=== PATIENT | female | born 1945 | race Caucasian/White ===

== ENCOUNTER → 2019-05-07 | Outpatient (CLI) | payer MEDICARE ==
--- NOTE | 2019-05-07 14:18 | REP ---
CHEST X-RAY: TWO VIEWS. HISTORY: Cough and shortness of breath. Rule out pneumonia. No comparison study. FINDINGS: There is a large hiatal hernia behind the heart. Heart is not felt to be enlarged. There are clips associated with the hiatal hernia. There appear to be some increased markings lateral to the hiatal hernia in the left base suggestive of an infiltrate. This is subtle. The remaining lung calzada are clear. There is no evidence of pleural effusion. The aorta is tortuous. Pulmonary vasculature is not felt to be increased. IMPRESSION: Subtle infiltrate suspected left base. There is a large hiatal hernia behind the heart with some associated surgical clips. Electronically Signed by Soy Karimi MD 05/07/2019 02:51 P
== END ==
LOC: M RAD 12:14
PROVIDERS: ATTEND Physician Assistant Medical
DX: R05 Cough (principal)

== ENCOUNTER 2019-05-16 10:53 | Observation (INO) | payer MEDICARE ==
[~2019-05-16] VITALS: Ht 162.6 cm; Wt 96.3 kg
[2019-05-16 11:40] LABS: BASO % 0.3 % (0.0-1.0); EOS # 0.1 10^3/uL (0.0-0.5); EOS % 0.8 % (0.0-3.0); HEMATOCRIT 42.7 % (36.0-47.0); HEMOGLOBIN 13.3 g/dl (12.0-15.5); LYMPH # 1.8 10^3/uL (1.5-5.0); LYMPH % 15.4 % (24.0-44.0); MEAN CORPUSCULAR HEMOGLOBIN 30.8 pg (27.0-33.0); MEAN CORPUSCULAR HGB CONC 31.1 g/dl (32.0-36.5); MEAN CORPUSCULAR VOLUME 98.8 fl (80.0-96.0); MONO % 16.8 % (0.0-5.0); NEUTROPHILS # 7.7 10^3/uL (1.5-8.5); NEUTROPHILS % 65.6 % (36.0-66.0); PLATELET COUNT, AUTOMATED 407 10^3/uL (150-450); RED BLOOD COUNT 4.32 10^6/uL (4.00-5.40); WHITE BLOOD COUNT 11.8 10^3/uL (4.0-10.0)
--- NOTE | 2019-05-16 11:52 | REP ---
Portable chest, 11:27 a.m., single AP view with the the patient sitting: Comparison is 05/07/2019. There is a large hiatal hernia, as previously. There is focal increased density inferiorly in the left lung, similar to the prior study, infiltrate versus compression atelectasis from the hiatal hernia. Right lung is clear. Cardiac size is normal. The nate, mediastinum, skeletal structures are unremarkable. Impression: No significant interval change. Large hiatal hernia. Increased density inferiorly in the left lung: Infiltrate versus compression atelectasis from the hiatal hernia. Electronically Signed by Alcides Bourgeois MD 05/16/2019 11:43 A
[2019-05-16 11:55] LABS: INR 1.18; PROTHROMBIN TIME 14.7 SECONDS (11.8-14.0)
[2019-05-16 12:38] LABS: ALBUMIN 3.2 GM/DL (3.2-5.2); ALT/SGPT < 6 U/L (12-78); BILIRUBIN,DIRECT 0.3 MG/DL (0.0-0.2); BILIRUBIN,TOTAL 0.9 MG/DL (0.2-1.0); BLOOD UREA NITROGEN 17 MG/DL (7-18); CALCIUM LEVEL 8.5 MG/DL (8.8-10.2); CARBON DIOXIDE LEVEL 27 MEQ/L (21-32); CHLORIDE LEVEL 103 MEQ/L (98-107); CK-MB VALUE MASS < 1.0 NG/ML (<3.6); CPK CREATINE PHOSPHOKINASE 55 U/L (26-192); CREATININE FOR GFR 1.07 MG/DL (0.55-1.30); GLOMERULAR FILTRATION RATE 53.4 (>39); GLUCOSE, FASTING 78 MG/DL (70-100); LIPASE 173 U/L (73-393); MB/CK RELATIVE INDEX 1.82 (< OR =4); NT-PRO BNP 353 PG/ML (<125); POTASSIUM SERUM 4.6 MEQ/L (3.5-5.1); SODIUM LEVEL 137 MEQ/L (136-145); TOTAL PROTEIN 7.2 GM/DL (6.4-8.2); TROPONIN I < 0.02 NG/ML (< 0.10)
[2019-05-16] MEDS ORDERED: IBUP200T45 PO (12:41)
[2019-05-16] MEDS ORDERED: ISOVUE-370 76% 100ML VIAL (Q9967) As Ordered ONE (13:36)
--- NOTE | 2019-05-16 14:15 | REP ---
CT of the chest with IV contrast for shortness of breath: Comparisons are the plain film studies dated 05/16/2019 and 05/07/2019. There is a large fixed hiatal hernia. There are subpleural para moderate K changes diffusely. These are more predominant in the lung bases. No focal infiltrates are identified. There are no masses or nodules. No pleural effusions. No bulla are identified. No pulmonary emboli are identified. The thoracic aorta is unremarkable. Cardiac size is upper normal. There is no pericardial effusion. There are surgical clips along the medial wall of the hiatal hernia. The visualized upper abdominal contents are unremarkable except for cortical scarring in the upper pole of the left kidney and a nonobstructive calculus in the upper pole of the left kidney. Impression: Bilateral subpleural scarring, particularly in the lung bases. No definite infiltrates. No pleural effusions. No adenopathy or mass. No pulmonary emboli. Large hiatal hernia. Surgical clips along the medial wall of the hiatal hernia. Electronically Signed by Alcides Bourgeois MD 05/16/2019 02:06 P
[2019-05-16] MEDS ORDERED: PANTOPRAZOLE 40MG INJ (PROTONIX) (C9113) IV ONE (15:30)
[2019-05-16] MEDS ORDERED: cefTRIAXone SOD 1 GM in D5W MINI-BAG PLUS 50 ML IV ONE (15:30)
[2019-05-16] MEDS ORDERED: ACETAMINOPHEN TAB 650MG DOSE (2X325MG) PO PRN (15:30)
[2019-05-16 16:00] VITALS: BP 144/94
--- NOTE | 2019-05-16 16:10 | HPEPDOC ---
General Date of Admission May 16, 2019 at 14:12 Date of Service: May 16, 2019 Chief Complaint The patient is a 74-year-old female admitted with a reason for visit of Chest Pain. Source: Patient, Family, EMS notes reviewed Exam Limitations: No limitations Timing/Duration: This morning Severity: Moderate Associated Symptoms: Chest Pain, Shortness of breath History of Present Illness Ms. Izquierdo is a 74 year old female who presented to the ED with CP and dyspnea. Pt reported that this morning she had gotten ready to go out at 10am; while sitting and waiting for her ride, she noted 10/10, gripping pain in the middle of her chest that radiated to the R side. The pain lasted for 'several minutes', she noticed some shortness of breath and felt very nervous. Pt noted some nausea with the pain, but no vomiting. It waned spontaneously, returned less intense several minutes later. Pt denied previous episodes. The entire episode lasted 30 mins to 1 hour. Pt denied any pain currently. Pt has not seen a doctor regularly in years. She recently completed Tx for pneumonia outpt. She was sent to the hospital for CXR and Rx Prednisone and Azithromycin. Dyspnea has improved since last week but she and her daughter stated that this morning she had gotten very short of breath. Pt also reported diarrhea that has been ongoing for 3-4 months. The stool is brown and watery in consistency, sometimes 4-5 times per day, others not at all. Home Medications Scheduled PRN Ibuprofen (Ibu-200) 200 Mg Tablet, 400 MG PO DAILY PRN for BACK PAIN, (Reported) Allergies Coded Allergies: aspirin (Verified Adverse Reaction, Unknown, ulcers, 05/16/19) Past Medical History Medical History Hiatal hernia Remote history of Fx L leg (set and cast) Surgical History Hiatal hernia repair Family History Significant Family History: Diabetes (Mother ), Lung disease (Father - Emphysema ) Social History * Smoker: Denies Alcohol: Denies Drugs: denies Recent Travel/Sick Contacts: Denies: Recent travel A-FIB/CHADSVASC A-FIB History Current/History of A-Fib/PAF?: No Current PO Anticoag Therapy: No Review of Systems Constitutional: Denies: Chills, Fever, Night Sweats Eyes: Denies: Pain ENT: Denies: Head Aches Skin: Denies: Rash, Lesions, Breakdown Pulmonary: Reports: Dyspnea; Denies: Cough Cardiovascular: Reports: Chest Pain; Denies: Palpitations, Orthopnea, Paroxysmal Noc. Dyspnea, Lt Headedness Gastrointestinal: Reports: Nausea, Diarrhea; Denies: Vomiting, Abdominal Pain Genitourinary: Reports: Incontinence; Denies: Dysuria, Retention Hematologic: Denies: Bruising Musculoskeletal: Denies: Neck Pain, Back Pain, Joint Pain, Muscle Pain, Spasms Neurological: Denies: Confusion Psych: Reports: Mood Normal, Memory Issues Physical Examination General Exam: Positive: Alert, Cooperative, No Acute Distress Eye Exam: Positive: PERRLA, Conjunctiva & lids normal, EOMI; Negative: Sclera icteric ENT Exam: Positive: Atraumatic, Mucous membr. moist/pink, Pharynx Normal Neck Exam: Positive: Supple; Negative: JVD, thyromegaly Chest Exam: Positive: Clear to auscultation, Normal air movement Heart Exam: Positive: Rate Normal, Regular Rhythm, Normal S1, Normal S2, Murmurs (2/6 SM S1S2 intact ); Negative: Rubs Telemetry: Positive: PVCs (vs PACs) Abdomen Exam: Positive: BS Hypoactive, Soft; Negative: Tenderness Extremity Exam: Positive: Edema (mild L>R), Normal pulses; Negative: Clubbing, Cyanosis Skin Exam: Positive: Nl turgor and temperature; Negative: Breakdown, Lesion Neuro Exam: Positive: Normal Speech, Cranial Nerves 3-12 NL Psych Exam: Positive: Mental status NL, Mood NL Vital Signs Vital Signs Date Time Temp Pulse Resp B/P (MAP) Pulse Ox O2 Delivery O2 Flow Rate FiO2 05/16/19 14:15 97.6 76 18 121/60 (80) 95 Room Air 05/16/19 13:07 2.0 Laboratory Data Labs 24H Laboratory Tests 2 05/16/19 11:15: Immature Granulocyte % (Auto) 1.1, Neutrophils (%) (Auto) 65.6, Lymphocytes (%) (Auto) 15.4L, Monocytes (%) (Auto) 16.8H, Eosinophils (%) (Auto) 0.8, Basophils (%) (Auto) 0.3, Neutrophils # (Auto) 7.7, Lymphocytes # (Auto) 1.8, Monocytes # (Auto) 2.0H, Eosinophils # (Auto) 0.1, Basophils # (Auto) 0.0, Nucleated Red Blood Cells % (auto) 0.0, Prothrombin Time 14.7H, Prothromb Time International Ratio 1.18, Anion Gap 7L, Glomerular Filtration Rate 53.4, Calcium Level 8.5L, Total Bilirubin 0.9, Direct Bilirubin 0.3H, Aspartate Amino Transf (AST/SGOT) 11, Alanine Aminotransferase (ALT/SGPT) < 6L, Alkaline Phosphatase 73, Total Creatine Kinase 55, Creatine Kinase MB < 1.0, Creatine Kinase MB Relative Index 1.82, Troponin I < 0.02, MW-Icy-T-Type Natriuretic Peptide 353H, Total Protein 7.2, Albumin 3.2, Albumin/Globulin Ratio 0.80L, Lipase 173, Thyroid Stimulating Hormone (TSH) 2.120 CBC/BMP Laboratory Tests 05/16/19 11:15 Assessment/Plan Ms. Izquierdo is a 74 year old female who presented to the ED with CP and dyspnea. Pt reported that this morning she had gotten ready to go out at 10am; while sit ting and waiting for her ride, she noted 10/10, gripping pain in the middle of her chest that radiated to the R side. The pain lasted for 'several minutes', she noticed some shortness of breath and felt very nervous. Pt noted some nausea with the pain, but no vomiting. It waned spontaneously, returned less intense several minutes later. Pt denied previous episodes. The entire episode lasted 30 mins to 1 hour. Pt denied any pain currently. Pt has not seen a doctor regularly in years. She recently completed Tx for pneumonia outpt. She was sent to the hospital for CXR and Rx Prednisone and Azithromycin. Dyspnea has improved since last week but she and her daughter stated that this morning she had gotten very short of breath. Pt also reported diarrhea that has been ongoing for 3-4 months. The stool is brown and watery in consistency, sometimes 4-5 times per day, others not at all. Ms Izquierdo's PMHx has been largely benign; until recently, she hasn't seen a doctor in 25 years and only takes Ibuprofen very rarely. She last took one several weeks ago and only if she has an ache or pain. CP - likely GI etiology; rule out cardiac origin - Troponin normal; repeat stat for 3hr serial - admit to the floor on telemetry - review EKG; not available in ED at time of exam. CHF with Pleural Effusion - suspected in ED - no evidence of CHF on chest CT - mild pedal edema l>r - monitor and rule out Hypoxemia - O2 via NC - titrate and maintain sat > 93% Recent Hx of Pneumonia - mild leukocytosis - + dyspnea and hypoxemia noted in the ED - pt treated with macrolide to completion - CT scan - some b/l subpleural scarring - give prophy Ceftriaxone and monitor - incentive spirometry Gastritis/Hiatal hernia - Protonix IV today for some relief - start PO tomorrow if can tolerate - consider GI consult inpt vs. outpt follow-up based on pt response to therapy Plan / VTE VTE Prophylaxis Ordered?: Yes (Heparin ) LATISHA PERRY PA-C May 16, 2019 16:10
[2019-05-16] MEDS ORDERED: SLF 3 ML SYR IV PRN (16:30)
--- NOTE | 2019-05-16 19:56 | ECGEPIP ---
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
[2019-05-16 20:00] VITALS: BP 126/72
[2019-05-16] MEDS: HEPARIN SOD (PORCINE) 5000 UNITS/ML VIAL SC SCH (21:26)
[2019-05-16] MEDS: SLF 3 ML SYR IV SCH (22:09)
[2019-05-17] VITALS: BP 139/81
[2019-05-17] MEDS: SLF 3 ML SYR IV SCH (04:56)
[2019-05-17] MEDS ORDERED: PANTOPRAZOLE 40MG TAB (PROTONIX) PO SCH (06:00)
[2019-05-17 08:06] VITALS: BP 142/77
[2019-05-17 08:09] LABS: HEMATOCRIT 41.5 % (36.0-47.0); HEMOGLOBIN 12.9 g/dl (12.0-15.5); MEAN CORPUSCULAR HEMOGLOBIN 30.9 pg (27.0-33.0); MEAN CORPUSCULAR HGB CONC 31.1 g/dl (32.0-36.5); MEAN CORPUSCULAR VOLUME 99.5 fl (80.0-96.0); PLATELET COUNT, AUTOMATED 393 10^3/uL (150-450); RED BLOOD COUNT 4.17 10^6/uL (4.00-5.40); WHITE BLOOD COUNT 9.5 10^3/uL (4.0-10.0)
[2019-05-17 08:38] LABS: CALCIUM LEVEL 8.7 MG/DL (8.8-10.2); CREATININE FOR GFR 1.09 MG/DL (0.55-1.30); GLOMERULAR FILTRATION RATE 52.2 (>39); POTASSIUM SERUM 4.4 MEQ/L (3.5-5.1)
[2019-05-17] MEDS: HEPARIN SOD (PORCINE) 5000 UNITS/ML VIAL SC SCH (09:05)
[2019-05-17] MEDS ORDERED: PANT40TA3 PO (11:16)
[2019-05-17] MEDS ORDERED: FUROSEMIDE 200 MG/20 ML ORAL SOL 60ML BTL PO SCH (16:00)
[2019-05-18] MEDS ORDERED: FLUBLOK(EGG FREE)(QUAD)INFLUENZA VACC 0.5ML SYRINGE (90682)18YRS&OLDER IM ONE (09:00)
[2019-05-18] MEDS ORDERED: PREVNAR 13 VACCINE SYRINGE (CPT CODE:90670) IM ONE (09:00)
== END 2019-05-17 13:50 | disposition home or self-care (01) ==
LOC: M ED 10:53 → INTOOBSV 14:12 → M ED INP 14:12 → ENRESERV 15:00 → M PCU 15:28
PROVIDERS: ADMIT Internal Medicine Nephrology; ATTEND Internal Medicine Nephrology
DX: R07.9 Chest pain, unspecified (principal); R09.02 Hypoxemia; K44.9 Diaphragmatic hernia without obstruction or gangrene; R19.7 Diarrhea, unspecified; R60.0 Localized edema; Z88.6 Allergy status to analgesic agent
CPT/HCPCS: 36415; 71045; 71260; 80048; 80076; 82550; 82553; 83690; 83880; 84443; 84484; 85025; 85027; 85610; 93005; 93041; 94760; 96372; 96374; 96375; 99285; C9113; G0378; J0696; Q9967

== ENCOUNTER → 2019-06-05 | Outpatient (CLI) | payer MEDICARE ==
[~2019-06-05] MED LIST: IBUP200T45 PO; PANT40TA3 PO
[2019-06-05 08:49] LABS: HEMOGLOBIN A1c 6.3 %
[2019-06-05 08:58] LABS: CHOLESTEROL RISK RATIO 3.042 (<5)
== END ==
LOC: M LAB 08:07
PROVIDERS: ATTEND Nurse Practitioner Family
DX: Z00.00 Encounter for general adult medical examination without abnormal findings (principal); E78.00 Pure hypercholesterolemia, unspecified; R73.01 Impaired fasting glucose

== ENCOUNTER → 2019-12-12 | Outpatient (CLI) | payer MEDICARE ==
[~2019-12-12] MED LIST changes: +PANT40TA29 PO; -PANT40TA3 PO
--- NOTE | 2019-12-21 08:04 | REP ---
RIGHT FOOT SERIES: 4-VIEWS HISTORY: Pain in the right foot. FINDINGS: Four views of the right foot show overall normal mineralization. No fracture or subluxation is seen. There is Achilles and plantar calcaneal spurring. Mild midfoot osteoarthritic spurring is seen. No erosive changes are noted. IMPRESSION: No acute abnormality. Osteoarthritic and heal spurring noted. MTDD
== END ==
LOC: M RAD 16:47
PROVIDERS: ATTEND Nurse Practitioner Family
DX: M79.671 Pain in right foot (principal); M77.31 Calcaneal spur, right foot; M19.071 Primary osteoarthritis, right ankle and foot

== ENCOUNTER 2020-05-02 12:35 | Inpatient (IN) | payer MEDICARE ==
[~2020-05-02] VITALS: Ht 157.5 cm; Wt 97.7 kg
[2020-05-02] MEDS ORDERED: TRIA37.53 PO (13:00)
[2020-05-02] MEDS ORDERED: METO1TAB32 PO (13:00)
--- NOTE | 2020-05-02 13:37 | REP ---
INDICATION: Coronavirus workup COMPARISON: 05/16/2019 TECHNIQUE: Portable AP view of the chest FINDINGS: Cardiomegaly and large hiatal hernia along with diffuse chronic interstitial changes are similar to prior examination. Subtle superimposed airspace disease cannot be excluded. No pneumothorax. No definite effusion. Skeletal structures intact. IMPRESSION: Chronic stable changes. Cannot exclude subtle superimposed airspace disease. <Electronically signed by Esteban Varela > 05/02/20 [id number]
[2020-05-02] MEDS ORDERED: PANT-23 PO (13:48)
[2020-05-02 14:57] LABS: BASO % 0.6 % (0.0-1.0); EOS % 0.4 % (0.0-3.0); HEMATOCRIT 41.3 % (36.0-47.0); HEMOGLOBIN 13.1 g/dl (12.0-15.5); LYMPH # 1.2 10^3/uL (1.5-5.0); LYMPH % 24.4 % (24.0-44.0); MEAN CORPUSCULAR HEMOGLOBIN 30.9 pg (27.0-33.0); MEAN CORPUSCULAR HGB CONC 31.7 g/dl (32.0-36.5); MEAN CORPUSCULAR VOLUME 97.4 fl (80.0-96.0); MONO # 0.7 10^3/uL (0.0-0.8); MONO % 14.5 % (0.0-5.0); NEUTROPHILS # 2.9 10^3/uL (1.5-8.5); NEUTROPHILS % 58.9 % (36.0-66.0); PLATELET COUNT, AUTOMATED 229 10^3/uL (150-450); RED BLOOD COUNT 4.24 10^6/uL (4.00-5.40)
[2020-05-02 15:00] LABS: VENOUS BASE EXCESS -1.4 (-2.0-2.0); VENOUS HCO3 24.7 MEQ/L (23.0-27.0); VENOUS O2 SATURATION 96.7 % (60.0-80.0); VENOUS PARTIAL PRESSURE CO2 46.5 mmHg (38.0-50.0); VENOUS PARTIAL PRESSURE O2 86.5 mmHg (30.0-50.0); VENOUS PH 7.343 UNITS (7.330-7.430); VENOUS STANDARD HCO3 23.3 MEQ/L; VENOUS TOTAL CO2 26.1 MEQ/L (24.0-28.0)
[2020-05-02 15:19] LABS: INR 0.98; PROTHROMBIN TIME 13.2 SECONDS (12.5-14.3)
[2020-05-02 15:20] LABS: PARTIAL THROMBOPLASTIN TIME 33.4 SECONDS (24.2-38.5)
[2020-05-02 15:23] LABS: D-DIMER QUANT 1551.7 ng/ml (<500)
[2020-05-02 15:26] LABS: ALT/SGPT 13 U/L (12-78); BILIRUBIN,TOTAL 0.5 MG/DL (0.2-1.0); BLOOD UREA NITROGEN 18 MG/DL (7-18); C REACTIVE PROTEIN QUANTITATIV 2.51 MG/DL (0.00-0.30); CALCIUM LEVEL 7.7 MG/DL (8.8-10.2); CARBON DIOXIDE LEVEL 27 MEQ/L (21-32); CHLORIDE LEVEL 103 MEQ/L (98-107); CK-MB VALUE MASS < 1.0 NG/ML (<3.6); CPK CREATINE PHOSPHOKINASE 86 U/L (26-192); CREATININE FOR GFR 1.56 MG/DL (0.55-1.30); FERRITIN 345 NG/ML (8-252); GLOMERULAR FILTRATION RATE 34.5 (>39); GLUCOSE, FASTING 88 MG/DL (70-100); LDH LACTATE DEHYDROGENASE 264 U/L (84-246); MAGNESIUM LEVEL 1.7 MG/DL (1.8-2.4); MB/CK RELATIVE INDEX 1.16 (< OR =4); POTASSIUM SERUM 3.8 MEQ/L (3.5-5.1); SODIUM LEVEL 136 MEQ/L (136-145); TOTAL PROTEIN 6.7 GM/DL (6.4-8.2); TROPONIN I < 0.02 NG/ML (< 0.10)
[2020-05-02] MEDS ORDERED: ISOVUE-370 76% 100ML VIAL As Ordered ONE (15:50)
--- NOTE | 2020-05-02 16:32 | REP ---
INDICATION: ?PE COMPARISON: None. TECHNIQUE: Axial contrast enhanced images from the thoracic inlet to the upper abdomen using pulmonary embolus technique with multiplanar re-formations. 75 ml Isovue 370 intravenous contrast material administered without complication. This CT examination was performed using the following dose reduction techniques: Automated exposure control, adjustment of mA and/or kv according to the patient's size, and use of iterative reconstruction technique. FINDINGS: Marked respiratory motion significantly limits evaluation. However, no obvious main to 2nd order pulmonary artery emboli are identified. Cardiomegaly with pulmonary vascular congestion and diffuse chronic interstitial changes with areas of subpleural fibrosis are again noted. Subtle moderate areas of early bilateral airspace disease are suggested but poorly evaluated due to motion. No effusion. No pneumothorax. Large hiatal hernia identified. Nonspecific lymph nodes in the mediastinum possibly reactive without significant adenopathy. IMPRESSION: 1. Significantly limited examination due to marked respiratory motion artifact. No obvious pulmonary embolus is identified. 2. Chronic bilateral parenchymal disease with suspected moderate areas of early peripheral opacities suggested. May be related to multifocal pneumonia or early COVID-19 pulmonary disease. <Electronically signed by Esteban Varela > 05/02/20 [id number]
[2020-05-02] MEDS ORDERED: LevoFLOXacin IV 750 MG in IV 1 EA IV ONE (16:45)
[2020-05-02] MEDS ORDERED: ACETAMINOPHEN TAB 650MG DOSE (2X325MG) PO PRN (18:00)
[2020-05-02] MEDS: dexameTHASONE 20MG/5ML VIAL (J1100 PER 1MG) IV SCH (18:00)
[2020-05-02] MEDS: NS 1,000 ML IV SCH (18:15)
--- NOTE | 2020-05-02 18:17 | HPEPDOC ---
General Date of Admission 05/02/20 Date of Service: May 02, 2020 Chief Complaint The patient is a 74-year-old female admitted with a reason for visit of Diff Breathing. Source: Patient Exam Limitations: No limitations Timing/Duration: Day(s) Severity: Moderate Associated Symptoms: Shortness of breath History of Present Illness Patient is 74 years old female with past history of hypertension presented to the hospital with increased shortness of breath and cough. According to patient her daughter pulses positive for Covid 19 a few days ago. Patient stated that she was started cough 2 days ago. In ER patient was found to have tachypnea, acute hypoxemic respiratory failure, positive Covid test . CTA was done and showed No obvious pulmonary embolus is identified. Chronic bilateral parenchymal disease with suspected moderate areas of early peripheral opacities suggested. May be related to multifocal pneumonia or early COVID-19 pulmonary disease. Home Medications Scheduled Metoprolol Succinate (Metoprolol Succinate) 25 Mg Tab.er.24h, 25 MG PO DAILY, (Reported) Pantoprazole Sodium (Pantoprazole Sodium) 40 Mg Tablet.dr, 40 MG PO DAILY, (Reported) Triamterene/Hydrochlorothiazid (Triamterene-Hctz 37.5-25 mg Cp) 1 Each Capsule, 1 CAP PO DAILY, (Reported) Allergies Coded Allergies: aspirin (Verified Adverse Reaction, Unknown, ulcers, 05/16/19) Past Medical History Medical History Hypertension Surgical History Hiatal hernia repair Family History Significant Family History: Diabetes (Mother ), Lung disease (Father - Emphysema ) Social History * Smoker: Denies Alcohol: Denies Drugs: denies A-FIB/CHADSVASC A-FIB History Current/History of A-Fib/PAF?: No Current PO Anticoag Therapy: No Review of Systems Constitutional: Reports: Weakness; Denies: Chills, Fever Eyes: Denies: Pain ENT: Denies: Head Aches Skin: Denies: Rash, Lesions Pulmonary: Reports: Dyspnea, Cough Cardiovascular: Denies: Chest Pain, Palpitations Gastrointestinal: Denies: Nausea, Vomiting Genitourinary: Denies: Dysuria, Frequency Hematologic: Denies: Bruising Endocrine: Denies: Polydipsia Musculoskeletal: Denies: Neck Pain Neurological: Denies: Weakness Psych: Reports: Mood Normal Physical Examination General Exam: Positive: Alert, Cooperative Eye Exam: Positive: PERRLA ENT Exam: Positive: Atraumatic Neck Exam: Positive: Supple; Negative: JVD Chest Exam: Positive: Rhonchi Heart Exam: Positive: Rate Normal Telemetry: Positive: No significant arrhythmia Abdomen Exam: Positive: Normal bowel sounds Extremity Exam: Negative: Clubbing Skin Exam: Positive: Nl turgor and temperature Neuro Exam: Positive: Strength at 5/5 X4 ext Psych Exam: Positive: Mental status NL Vital Signs Vital Signs Date Time Temp Pulse Resp B/P (MAP) Pulse Ox O2 Delivery O2 Flow Rate FiO2 05/02/20 14:30 76 96 Nasal Cannula 2.0 05/02/20 14:25 22 05/02/20 13:51 05/02/20 12:37 98.2 Laboratory Data Labs 24H Laboratory Tests 2 05/02/20 12:59: Prothrombin Time 13.2, Prothromb Time International Ratio 0.98, Activated Partial Thromboplast Time 33.4, Fibrinogen 565H, D-Dimer, Quantitative 1551.70H 05/02/20 13:00: Immature Granulocyte % (Auto) 1.2, Neutrophils (%) (Auto) 58.9, Lymphocytes (%) (Auto) 24.4, Monocytes (%) (Auto) 14.5H, Eosinophils (%) (Auto) 0.4, Basophils (%) (Auto) 0.6, Neutrophils # (Auto) 2.9, Lymphocytes # (Auto) 1.2L, Monocytes # (Auto) 0.7, Eosinophils # (Auto) 0.0, Basophils # (Auto) 0.0, Nucleated Red Blood Cells % (auto) 0.0, Blood Gas Bicarbonate Standard 23.3, Venous Blood pH 7.343, Venous Blood Partial Pressure CO2 46.5, Venous Blood Partial Pressure O2 86.5H, Venous Blood Total Carbon Dioxide 26.1, Venous Blood HCO3 24.7, Venous Blood Oxygen Saturation 96.7H, Venous Blood Base Excess -1.4, Anion Gap 6L, Glomerular Filtration Rate 34.5L, Lactic Acid Level 1.0, Calcium Level 7.7L, Magnesium Level 1.7L, Ferritin 345H, Total Bilirubin 0.5, Aspartate Amino Transf (AST/SGOT) 37, Alanine Aminotransferase (ALT/SGPT) 13, Alkaline Phosphatase 71, Lactate Dehydrogenase 264H, Total Creatine Kinase 86, Creatine Kinase MB < 1.0, Creatine Kinase MB Relative Index 1.16, Troponin I < 0.02, C-Reactive Protein, Quantitative 2.51H, Total Protein 6.7, Albumin 3.0L, Albumin/Globulin Ratio 0.8L, Procalcitonin 0.05 CBC/BMP Laboratory Tests 05/02/20 13:00 Microbiology Microbiology 05/02/20 Respiratory Virus Panel (PCR) ([place]) - Final, Complete SARS-CoV-2 (COVID 19) 05/02/20 Blood Culture, Received Pending 05/02/20 Blood Culture, Received Pending Assessment/Plan Patient is 74 years old female with past history of hypertension presented to the hospital with increased shortness of breath and cough. According to patient her daughter pulses positive for Covid 19 a few days ago. Patient stated that she was started cough 2 days ago. In ER patient was found to have tachypnea, acute hypoxemic respiratory failure, positive Covid test . CTA was done and showed No obvious pulmonary embolus is identified. Chronic bilateral parenchymal disease with suspected moderate areas of early peripheral opacities suggested. May be related to multifocal pneumonia or early COVID-19 pulmonary disease. Problems (1) Pneumonia Status: Acute Problem Text: Community-acquired pneumonia secondary to COVID 19 Labs according to Covid protocol Remdesevir IV Dexamethasone IV Levofloxacin IV (2) COVID-19 Status: Acute Problem Text: See above (3) Respiratory failure with hypoxia Status: Chronic Problem Text: During walking test oxygen saturation dropped to 84% Inhalers (4) YENY (acute kidney injury) Status: Acute Problem Text: Secondary to dehydration IV fluid Continue to monitor (5) Hypertension Status: Chronic Problem Text: Blood pressures under control Continue home cardioprotective medication Plan / VTE VTE Prophylaxis Ordered?: Yes ARIEL STRICKLAND DO May 02, 2020 18:18
--- NOTE | 2020-05-02 21:45 | ECGEPIP ---
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
[2020-05-02] MEDS ORDERED: REMDESIVIR 200 MG in NS 250 ML IV ONE (22:00)
[2020-05-03] MEDS ORDERED: SODIUM CHLORIDE 0.9% INJ 10 ML SYR IV ONE
[2020-05-03 06:42] VITALS: BP 135/77
[2020-05-03 08:00] VITALS: BP 145/68; O2SAT 90
[2020-05-03] MEDS: DYAZIDE 37.5/25 CAP (TRIAM/HCTZ) PO SCH (09:08)
[2020-05-03] MEDS: dexameTHASONE 20MG/5ML VIAL (J1100 PER 1MG) IV SCH (09:09)
[2020-05-03] MEDS: PANTOPRAZOLE 40MG TAB (PROTONIX) PO SCH (09:09)
[2020-05-03] MEDS: METOPROLOL SUCC *XL* 25MG TAB (TopROL *XL*) PO SCH (09:09)
[2020-05-03] MEDS: ENOXAPARIN 40MG/0.4ML SYRINGE (J1650 PER 10MG) SC SCH (09:10)
[2020-05-03] MEDS: NS 1,000 ML IV SCH (09:10)
[2020-05-03 10:29] LABS: BASO % 0.5 % (0.0-1.0); HEMATOCRIT 40.8 % (36.0-47.0); HEMOGLOBIN 12.9 g/dl (12.0-15.5); LYMPH # 0.6 10^3/uL (1.5-5.0); LYMPH % 16.9 % (24.0-44.0); MEAN CORPUSCULAR HEMOGLOBIN 31.5 pg (27.0-33.0); MEAN CORPUSCULAR HGB CONC 31.6 g/dl (32.0-36.5); MEAN CORPUSCULAR VOLUME 99.5 fl (80.0-96.0); MONO # 0.3 10^3/uL (0.0-0.8); MONO % 7.9 % (0.0-5.0); NEUTROPHILS # 2.7 10^3/uL (1.5-8.5); NEUTROPHILS % 73.1 % (36.0-66.0); PLATELET COUNT, AUTOMATED 233 10^3/uL (150-450); WHITE BLOOD COUNT 3.7 10^3/uL (4.0-10.0)
[2020-05-03 10:39] LABS: INR 1.03; PARTIAL THROMBOPLASTIN TIME 36.4 SECONDS (24.2-38.5); PROTHROMBIN TIME 13.7 SECONDS (12.5-14.3)
[2020-05-03 10:57] LABS: ALBUMIN 2.7 GM/DL (3.2-5.2); ALT/SGPT 12 U/L (12-78); BILIRUBIN,DIRECT 0.1 MG/DL (0.0-0.2); BILIRUBIN,TOTAL 0.3 MG/DL (0.2-1.0); BLOOD UREA NITROGEN 17 MG/DL (7-18); CALCIUM LEVEL 7.8 MG/DL (8.8-10.2); CARBON DIOXIDE LEVEL 26 MEQ/L (21-32); CHLORIDE LEVEL 107 MEQ/L (98-107); CREATININE FOR GFR 1.37 MG/DL (0.55-1.30); FERRITIN 365 NG/ML (8-252); GLOMERULAR FILTRATION RATE 40.1 (>39); GLUCOSE, FASTING 157 MG/DL (70-100); MAGNESIUM LEVEL 1.6 MG/DL (1.8-2.4); NT-PRO BNP 689 PG/ML (<125); POTASSIUM SERUM 4.3 MEQ/L (3.5-5.1); SODIUM LEVEL 139 MEQ/L (136-145); TOTAL PROTEIN 6.4 GM/DL (6.4-8.2); TROPONIN I < 0.02 NG/ML (< 0.10)
[2020-05-03 12:00] VITALS: BP 118/80; O2SAT 91
[2020-05-03] MEDS ORDERED: MAG SULF 1GM/100ML (MAG RUN) 1 GM in IV 1 EA IV ONE (12:00)
[2020-05-03 16:00] VITALS: O2SAT 94
[2020-05-03] MEDS ORDERED: LevoFLOXacin IV 500 MG in IV 1 EA IV SCH (18:00)
[2020-05-03 18:28] LABS: C REACTIVE PROTEIN QUANTITATIV 3.33 MG/DL (0.00-0.30); TROPONIN I < 0.02 NG/ML (< 0.10)
--- NOTE | 2020-05-03 19:43 | IPNPDOC ---
Text Note Date of Service The patient was seen on 05/03/20. NOTE Subjective: No any acute events overnight. Patient continues to have high oxygen requirements via nasal cannula 4L Objective: GENERAL APPEARANCE: NAD HEENT: no scleral icterus, no JVD, EOMI CARDIOVASCULAR: S1S2 LUNGS: Diminished lung sounds bilaterally, mild rhonchi at the bases ABDOMEN: soft & not tender w palpitation MUSCULOSKELETAL: no cyanosis, no swelling INTEGUMENT: no generalized pallor NEUROLOGICAL: cranial nerve function from 2-12 intact intact, follows commands, speech not dysarthric Assessment/Plan Patient is 74 years old female with past history of hypertension presented to the hospital with increased shortness of breath and cough. According to patient her daughter pulses positive for Covid 19 a few days ago. Patient stated that she was started cough 2 days ago. In ER patient was found to have tachypnea, acute hypoxemic respiratory failure, positive Covid test . CTA was done and showed No obvious pulmonary embolus is identified. Chronic bilateral parenchymal disease with suspected moderate areas of early peripheral opacities suggested. May be related to multifocal pneumonia or early COVID-19 pulmonary disease. Problems (1) Pneumonia Community-acquired pneumonia secondary to COVID 19 Labs according to Covid protocol Inflammatory marker d-dimer mildly increased to 1685 Procalcitonin negative Remdesevir IV Dexamethasone IV Dc Levofloxacin IV (2) COVID-19 See above (3) Respiratory failure with hypoxia During walking test oxygen saturation dropped to 84% Inhalers on admission Today BNP elevated to 680 most likely secondary to volume overload. I DC fluid. Lasix IV 20 mg (4) YENY (acute kidney injury) Improved Secondary to dehydration Continue to monitor (5) Hypertension Blood pressures under control Continue home cardioprotective medication VS,Fishbone, I+O VS, Fishbone, I+O Laboratory Tests 05/03/20 10:05 Vital Signs Date Time Temp Pulse Resp B/P (MAP) Pulse Ox O2 Delivery O2 Flow Rate FiO2 05/03/20 16:00 94 Nasal Cannula 4.0 05/03/20 12:00 96.8 64 20 118/80 (93) I&O- Last 24 Hours up to 6 AM 05/03/20 06:00 Intake Total 440 ml Balance 440 ml ARIEL STRICKLAND DO May 03, 2020 19:43
[2020-05-03 20:00] VITALS: BP 114/66
[2020-05-03] MEDS ORDERED: FUROSEMIDE 20MG/2ML VIAL (J1940) IV ONE (20:00)
[2020-05-03] MEDS: REMDESIVIR 100 MG in NS 250 ML IV SCH (20:32)
[2020-05-03] MEDS: SODIUM CHLORIDE 0.9% INJ 10 ML SYR IV SCH (21:55)
[2020-05-03 23:26] VITALS: O2SAT 90
[2020-05-04] VITALS (8 sets, daily range): BP systolic 116–137; BP diastolic 56–80; O2SAT 88–91
[2020-05-04 05:59] LABS: BASO % 0.5 % (0.0-1.0); HEMOGLOBIN 13.5 g/dl (12.0-15.5); LYMPH # 0.8 10^3/uL (1.5-5.0); LYMPH % 14.4 % (24.0-44.0); MEAN CORPUSCULAR HEMOGLOBIN 31.3 pg (27.0-33.0); MEAN CORPUSCULAR HGB CONC 31.4 g/dl (32.0-36.5); MEAN CORPUSCULAR VOLUME 99.5 fl (80.0-96.0); MONO # 0.8 10^3/uL (0.0-0.8); MONO % 13.6 % (0.0-5.0); NEUTROPHILS # 4.1 10^3/uL (1.5-8.5); NEUTROPHILS % 69.6 % (36.0-66.0); PLATELET COUNT, AUTOMATED 284 10^3/uL (150-450); RED BLOOD COUNT 4.32 10^6/uL (4.00-5.40); WHITE BLOOD COUNT 5.8 10^3/uL (4.0-10.0)
[2020-05-04 06:14] LABS: INR 1.13; PROTHROMBIN TIME 14.8 SECONDS (12.5-14.3)
[2020-05-04 06:15] LABS: PARTIAL THROMBOPLASTIN TIME 34.9 SECONDS (24.2-38.5)
[2020-05-04 06:48] LABS: ALBUMIN 2.8 GM/DL (3.2-5.2); ALT/SGPT 13 U/L (12-78); BILIRUBIN,DIRECT 0.1 MG/DL (0.0-0.2); BILIRUBIN,TOTAL 0.3 MG/DL (0.2-1.0); BLOOD UREA NITROGEN 24 MG/DL (7-18); CALCIUM LEVEL 8.8 MG/DL (8.8-10.2); CARBON DIOXIDE LEVEL 29 MEQ/L (21-32); CHLORIDE LEVEL 104 MEQ/L (98-107); CREATININE FOR GFR 1.49 MG/DL (0.55-1.30); FERRITIN 468 NG/ML (8-252); GLOMERULAR FILTRATION RATE 36.4 (>39); GLUCOSE, FASTING 105 MG/DL (70-100); NT-PRO BNP 825 PG/ML (<125); POTASSIUM SERUM 4.4 MEQ/L (3.5-5.1); SODIUM LEVEL 139 MEQ/L (136-145); TROPONIN I < 0.02 NG/ML (< 0.10)
[2020-05-04] MEDS ORDERED: FLUBLOK(EGG FREE)(QUAD)INFLUENZA VACC 0.5ML SYRINGE 18YRS & OLDER IM SCH (09:00)
[2020-05-04] MEDS ORDERED: FUROSEMIDE 20MG/2ML VIAL (J1940) IV SCH (09:00)
[2020-05-04] MEDS: PANTOPRAZOLE 40MG TAB (PROTONIX) PO SCH (09:59)
[2020-05-04] MEDS: DYAZIDE 37.5/25 CAP (TRIAM/HCTZ) PO SCH (09:59)
[2020-05-04] MEDS: ENOXAPARIN 40MG/0.4ML SYRINGE (J1650 PER 10MG) SC SCH (10:00)
[2020-05-04] MEDS: dexameTHASONE 20MG/5ML VIAL (J1100 PER 1MG) IV SCH (10:00)
[2020-05-04] MEDS: METOPROLOL SUCC *XL* 25MG TAB (TopROL *XL*) PO SCH (10:01)
[2020-05-04] MEDS: MAGNESIUM GLUCONATE 500 MG TAB PO SCH (10:01)
[2020-05-04] MEDS: FUROSEMIDE 20MG/2ML VIAL (J1940) IV SCH (10:04)
--- NOTE | 2020-05-04 17:22 | IPNPDOC ---
Text Note Date of Service The patient was seen on 05/04/20. NOTE Subjective: No any acute events overnight. Patient stated that she feels little bit better today Objective: GENERAL APPEARANCE: NAD HEENT: no scleral icterus, no JVD, EOMI CARDIOVASCULAR: S1S2 LUNGS: Diminished lung sounds bilaterally, mild rhonchi at the bases ABDOMEN: soft & not tender w palpitation MUSCULOSKELETAL: no cyanosis, no swelling INTEGUMENT: no generalized pallor NEUROLOGICAL: cranial nerve function from 2-12 intact intact, follows commands, speech not dysarthric Assessment/Plan Patient is 74 years old female with past history of hypertension presented to the hospital with increased shortness of breath and cough. According to patient her daughter pulses positive for Covid 19 a few days ago. Patient stated that she was started cough 2 days ago. In ER patient was found to have tachypnea, acute hypoxemic respiratory failure, positive Covid test . CTA was done and showed No obvious pulmonary embolus is identified. Chronic bilateral parenchymal disease with suspected moderate areas of early peripheral opacities suggested. May be related to multifocal pneumonia or early COVID-19 pulmonary disease. Problems (1) Pneumonia Community-acquired pneumonia secondary to COVID 19 Labs according to Covid protocol Inflammatory marker d-dimer mildly increased to 1685 Procalcitonin negative Remdesevir IV Dexamethasone IV Dc Levofloxacin IV (2) COVID-19 See above (3) Respiratory failure with hypoxia Secondary to pneumonia During walking test oxygen saturation dropped to 84% on admission Inhalers (4) YENY (acute kidney injury) Worsening today Lasix on hold Triamterene/Hydrochlorothiazide on hold (5) Hypertension Blood pressures under control Blood pressures under control Amlodipine 10 mg added VS,Fishbone, I+O VS, Fishbone, I+O Laboratory Tests 05/04/20 05:48 Vital Signs Date Time Temp Pulse Resp B/P (MAP) Pulse Ox O2 Delivery O2 Flow Rate FiO2 05/04/20 16:00 4.0 05/04/20 12:00 91 Nasal Cannula 05/04/20 10:01 65 118/64 05/04/20 08:00 96.3 20 I&O- Last 24 Hours up to 6 AM 05/04/20 06:00 Intake Total 1920 ml Output Total 2550 ml Balance -630 ml ARIEL STRICKLAND DO May 04, 2020 17:22
[2020-05-04] MEDS: amLODIPine 10 MG TAB PO SCH (17:58)
[2020-05-04] MEDS: SODIUM CHLORIDE 0.9% INJ 10 ML SYR IV SCH (21:37)
[2020-05-04] MEDS: REMDESIVIR 100 MG in NS 250 ML IV SCH (21:37)
[2020-05-05 04:00] VITALS: BP 133/77
[2020-05-05 08:00] VITALS: O2SAT 92
[2020-05-05 08:57] LABS: HEMATOCRIT 43.7 % (36.0-47.0); HEMOGLOBIN 13.9 g/dl (12.0-15.5); MEAN CORPUSCULAR HEMOGLOBIN 31.5 pg (27.0-33.0); MEAN CORPUSCULAR HGB CONC 31.8 g/dl (32.0-36.5); MEAN CORPUSCULAR VOLUME 99.1 fl (80.0-96.0); PLATELET COUNT, AUTOMATED 346 10^3/uL (150-450); RED BLOOD COUNT 4.41 10^6/uL (4.00-5.40); WHITE BLOOD COUNT 6.4 10^3/uL (4.0-10.0)
[2020-05-05 09:25] LABS: INR 1.09; PROTHROMBIN TIME 14.3 SECONDS (12.5-14.3)
[2020-05-05 09:26] LABS: PARTIAL THROMBOPLASTIN TIME 31.4 SECONDS (24.2-38.5)
[2020-05-05 09:34] LABS: ATYPICAL LYMPH 10 % (0-5); LYMPHOCYTES 15 % (16-44); MONOCYTES 6 % (0-5); NEUTROPHILS 69 % (28-66)
[2020-05-05 09:35] LABS: PLATELET ESTIMATE NORMAL (NORMAL)
[2020-05-05 09:36] LABS: ALBUMIN 3.1 GM/DL (3.2-5.2); BILIRUBIN,DIRECT 0.2 MG/DL (0.0-0.2); BILIRUBIN,TOTAL 0.4 MG/DL (0.2-1.0); CALCIUM LEVEL 8.8 MG/DL (8.8-10.2); CREATININE FOR GFR 1.67 MG/DL (0.55-1.30); GLOMERULAR FILTRATION RATE 31.9 (>39); POTASSIUM SERUM 4.3 MEQ/L (3.5-5.1); TOTAL PROTEIN 6.9 GM/DL (6.4-8.2)
[2020-05-05] MEDS: FUROSEMIDE 20MG/2ML VIAL (J1940) IV SCH (09:50)
[2020-05-05] MEDS: MAGNESIUM GLUCONATE 500 MG TAB PO SCH (09:51)
[2020-05-05] MEDS: dexameTHASONE 20MG/5ML VIAL (J1100 PER 1MG) IV SCH (09:51)
[2020-05-05] MEDS: PANTOPRAZOLE 40MG TAB (PROTONIX) PO SCH (09:51)
[2020-05-05 09:52] VITALS: BP 112/70
[2020-05-05] MEDS: amLODIPine 10 MG TAB PO SCH (09:52)
[2020-05-05] MEDS: METOPROLOL SUCC *XL* 25MG TAB (TopROL *XL*) PO SCH (09:53)
[2020-05-05] MEDS: ENOXAPARIN 40MG/0.4ML SYRINGE (J1650 PER 10MG) SC SCH (09:53)
[2020-05-05 12:00] VITALS: BP 104/66; O2SAT 91
[2020-05-05] MEDS ORDERED: VENTAER INH (12:38)
[2020-05-05] MEDS ORDERED: DEXA2TA PO (12:38)
--- NOTE | 2020-05-05 14:51 | DS.PDOC ---
Discharge Summary General Date of Admission May 02, 2020 at 17:51 Date of Discharge 05/05/20 Discharge Summary Chief complaints :Shortness of breath History of present illness and Hospital course Patient is 74 years old female with past history of hypertension presented to the hospital with increased shortness of breath and cough. According to patient her daughter pulses positive for Covid 19 a few days ago. Patient stated that she was started cough 2 days ago. In ER patient was found to have tachypnea, acute hypoxemic respiratory failure, positive Covid test . CTA was done and showed No obvious pulmonary embolus is identified. Chronic bilateral parenchymal disease with suspected moderate areas of early peripheral opacities suggested. May be related to multifocal pneumonia or early COVID-19 pulmonary disease. The patient continued to be on 4 L of nasal cannula and eventually has been down to 3 L, saturating around 94. The patient was started on dexamethasone and Levaquin. She also got 4 days of The patient had a mild AK I which was likely secondary to her contrast-induced nephropathy which has been almost stable. The patient has been doing well, participated in physical therapy has been improving her oxygenation and is clinically stable for discharge. Home O2 evaluation will be done and the oxygen will be set up. She has been advised to follow-up with PCP in 1 week and will be given dexamethasone 2 mg daily for the next 4 days along with a Ventolin inhaler. PHYSICAL EXAMINATION: General: The patient is awake, alert, oriented x3, sitting up in the bed in no apparent distress. Head and Neck Exam: Extraocular muscles intact. Pupils equally round and reactive to light. Mucous membranes are moist. Neck is supple. There is no jugular venous distention (JVD). Cardiovascular: S1 and S2, regular rate. Trace edema of the bilateral lower extremities. Respiratory: Clear on auscultation bilaterally Abdomen: Soft. Positive bowel sounds. Nontender. No organomegaly. Genitourinary: Deferred Musculoskeletal: no cyanosis was noted. Central Nervous System (OFFICE RN): No focal deficit. Power is 5/5 in all extremities. Mediictations. As per discharge reconciliation medication list Activity as tolerated Diet. 2 g sodium diet Follow-up appointments. PCP in 1 week. Condition on discharge. Patient is medically optimized for discharge Discharge disposition: Home Total time spent on this discharge including coordination of care, review of chart documentation and actual patient contact is around 35 minutes Vital Signs/I&Os Vital Signs Date Time Temp Pulse Resp B/P (MAP) Pulse Ox O2 Delivery O2 Flow Rate FiO2 05/05/20 12:00 91 Nasal Cannula 4.0 05/05/20 12:00 96.4 70 20 104/66 (79) I&O- Last 24 Hours up to 6 AM 05/05/20 06:00 Intake Total 840 ml Output Total 2470 ml Balance -1630 ml Laboratory Data Labs 24H Laboratory Tests 2 05/04/20 18:28: D-Dimer, Quantitative 1782.86H, C-Reactive Protein, Quantitative 1.77H 05/05/20 07:34: Neutrophils (%) (Auto) , Nucleated Red Blood Cells % (auto) 0.0, Neutrophils 69H, Lymphocytes (Manual) 15L, Monocytes (Manual) 6H, Atypical Lymphocytes 10H, Red Blood Cell Morphology NORMAL, Platelet Estimate NORMAL, Prothrombin Time 14.3H, Prothromb Time International Ratio 1.09, Activated Partial Thromboplast Time 31.4, Fibrinogen 486H, Anion Gap 7L, Glomerular Filtration Rate 31.9L, Calcium Level 8.8, Magnesium Level 2.0, Ferritin 493H, Total Bilirubin 0.4, Direct Bilirubin 0.2, Aspartate Amino Transf (AST/SGOT) 47H, Alanine Aminotransferase (ALT/SGPT) 15, Alkaline Phosphatase 63, CV-Czj-K-Type Natriuretic Peptide 402H, Total Protein 6.9, Albumin 3.1L, Albumin/Globulin Ratio 0.8L, Procalcitonin 0.05 CBC/BMP Laboratory Tests 05/05/20 07:34 Microbiology Microbiology 05/02/20 Respiratory Virus Panel (PCR) ([place]) - Final, Complete SARS-CoV-2 (COVID 19) 05/02/20 Blood Culture - Preliminary, Resulted No Growth after 48 hours. All Specime... 05/02/20 Blood Culture - Preliminary, Resulted No Growth after 48 hours. All Specime... Discharge Medications Scheduled Dexamethasone (Dexamethasone) 2 Mg Tablet, 2 MG PO DAILY Metoprolol Succinate (Metoprolol Succinate) 25 Mg Tab.er.24h, 25 MG PO DAILY, (Reported) Pantoprazole Sodium (Pantoprazole Sodium) 40 Mg Tablet.dr, 40 MG PO DAILY, (Reported) Triamterene/Hydrochlorothiazid (Triamterene-Hctz 37.5-25 mg Cp) 1 Each Capsule, 1 CAP PO DAILY, (Reported) Scheduled PRN Albuterol Sulfate (Ventolin Hfa) 18 Gm Hfa.aer.ad, 2 PUFF INH Q4-6HP PRN for wheezing Allergies Coded Allergies: aspirin (Verified Adverse Reaction, Unknown, ulcers, 05/16/19) NERISSA LALA MD May 05, 2020 14:51
[2020-05-05 16:00] VITALS: O2SAT 93
[2020-05-17] MEDS ORDERED: PNEUMOCOCCAL VACCINE 0.5ML SYRINGE (PNEUMOVAX 23) IM ONE (09:00)
== END 2020-05-05 18:00 | disposition home or self-care (01) | DRG 177 ==
LOC: M ED 12:35 → M ED INP 17:51 → M 4MAIN 05-03 06:30
PROVIDERS: ADMIT Internal Medicine; ATTEND Internal Medicine
PROC: XW033E5 Introduction of Remdesivir Anti-infective into Peripheral Vein, Percutaneous Approach, New Technology Group 5 (ICD-10-PCS; principal; 2020-05-02)
PROC: 3E0333Z Introduction of Anti-inflammatory into Peripheral Vein, Percutaneous Approach (ICD-10-PCS; 2020-05-02)
DX: U07.1 COVID-19 (principal); J96.01 Acute respiratory failure with hypoxia; J12.89 Other viral pneumonia; N17.9 Acute kidney failure, unspecified; I10 Essential (primary) hypertension; Z79.899 Other long term (current) drug therapy; Z88.6 Allergy status to analgesic agent; Z66 Do not resuscitate

== ENCOUNTER 2020-06-10 10:54 | Inpatient (IN) | payer MEDICARE ==
[~2020-06-10] VITALS: Ht 160 cm; Wt 94.9 kg
[~2020-06-10 10:54] MED LIST changes: +DEXA2TA PO; +METO1TAB32 PO; +PANT-23 PO; +TRIA37.53 PO; +VENTAER INH
--- OUTSIDE RECORDS SUMMARY | 2020-06-10 11:07 | CCD | Continuity of Care Document ---
Author Author Inge ESCOBAR [facility] Organization Unknown Address [address] [place] [address] Phone [phone] Care Team Providers Care Soloist Dancer Name Role Phone [facility] - Orthopaedic Surgery AUTM [phone] Problems Active Problems Provider Date Essential hypertension Lesli Escobar FNP Onset: Gastroesophageal reflux disease Lesli Escobar FNP Onset: 05/20/2020 Social History Type Date Description Comments Sex Unknown Tobacco Use Start: Unknown Never Used Smokeless Tobacco ETOH Use Denies alcohol use Tobacco Use Start: Unknown End: Unknown Patient is a former smoker Recreational Drug Use Never Used Drugs Smoking Status Reviewed: 12/18/19 Patient is a former smoker Exercise Type/Frequency Exercises rarely Tattoo/Piercing None Sun Exposure Moderate amount of sun exposure Seat Belt/Car Seat Always uses seat belt Bike Helmet Never Smoke Alarms Yes Smoke Alarms Carbon Monoxide Detector: Yes Allergies, Adverse Reactions, Alerts Description No Known Drug Allergies Medications Active Medications SIG Qnty Indications Ordering Provide r Date Fluticasone Propionate 50mcg/Act Suspension two sprays each side of nose daily 48gm R09.81 Lesli Chang ch, FNP 05/20/2020 Cetirizine HCL 10mg Tablets 1 by mouth QHS 90tabs R09.81 Lesli Escobar FNP 05/20/2020 Albuterol Sulfate (2 .5mg/3ML) 0.083% Nebulizer 1 unit dose ampule in nebulizer and inha led up to 4 times a day for coughing and wheezing 180ml Lesli Escobar FNP 05/13/2020 Ventolin HFA 108(90Base) mcg/Act A erosol 2 puffs every 4-6 hours as needed for wheezing Unk nown 05/05/2020 Pantoprazole Sodium 40mg Tablets D R take one tablet by mouth every day for heartburn/ acid reflux 90tabs Lesli Escobar FNP Triamterene/Hydrochlorothiazide 37.5-25mg Capsules take one capsule by mouth every morning for high blood press ure 90caps Lesli Escobar FNP Metoprolol Succinate ER 25mg Tablets ER 24HR 1 by mouth every day 90tabs Lesli Escobar FNP History Medications Dexamethasone 2mg Tablets one tablet by mouth once a day x 5 days Unknown 2020 - 05/10/2020 Immunizations CPT Code Status Date Vaccine Lot # [id number] Given 05/30/2019 Influenza Virus Vaccine, Quadrivalent,age 3 and up,multidose vial [id number] Given 05/30/2019 Prevnar 13 [id number] Vital Signs Date Vital Result Comment 12/18/2019 1:34pm BP Systolic 110 mmHg BP Diastolic 84 mmHg Heart Rate 93 /min Body Temperature 96.9 F Respiratory Rate 17 /min Height 62.0 inches 5'2" Weight 204.25 lb O2 % BldC Oximetry 93 % Peak Expiratory Flow Rate 305 Estimated Peak Flow Rate [place] Body Weight 110 lb BMI (Body Mass Index) 37.4 kg/m2 12/12/2019 4:04pm BP Systolic 129 mmHg BP Diastolic 88 mmHg Heart Rate 90 /min Body Temperature 96.8 F Respiratory Rate 17 /min Height 62.0 inches 5'2" Weight 204.50 lb O2 % BldC Oximetry 98 % Peak Expiratory Flow Rate 305 Estimated Peak Flow Rate [place] Body Weight 110 lb BMI (Body Mass Index) 37.4 kg/m2 Results Description No Information Available Procedures Date Code Description Status 04/25/2006 [id number] Colonoscopy Completed Medical Devices Description No Information Available Encounters Type Date Location Provider Dx Diagnosis Office Visit 05/20/2020 11:45a Main Office Lesli Escobar FNP R09.8 1 Nasal congestion Office Visit 05/12/2020 3:45p Main Office Lesli Escobar FNP J12.8 2 Pneumonia due to coronavirus disease 2019 Office Visit 05/02/2020 12:00p Main Office Lesli Escobar FNP R06.0 2 Shortness of breath Office Visit 12/18/2019 1:30p Main Office Lesli Escobar FNP I10 Essential (primary) hypertension K21.9 Gastro-esophageal reflux dis ease without esophagitis M79.671 Pain in right foot M25.561 Pain in right knee Office Visit 12/12/2019 4:00p Main Office Lesli Escobar FNP M79.6 71 Pain in right foot Assessments Date Code Description Provider 05/20/2020 R09.81 Nasal congestion Lesli Escobar FNP 05/12/2020 J12.82 Pneumonia due to coronavirus dis ease 2019 Lesli Escobar FNP 05/02/2020 R06.02 Shortness of breath Romaine Escobar, ASSISTANT FITNESS MANAGER 12/18/2019 I10 Essential (primary) hypertension Lesli Escobar FNP 12/18/2019 K21.9 Gastro-esophageal reflux disease without esophagitis Lesli Escobar, REBECCA 12/18/2019 M79.671 Pain in right foot Pleskach, Mol ly, ASSISTANT FITNESS MANAGER 12/18/2019 M25.561 Pain in right knee Pleskach, Mol ly, ASSISTANT FITNESS MANAGER 12/12/2019 M79.671 Pain in right foot Pleskach, Mol ly, ASSISTANT FITNESS MANAGER Plan of Treatment Future Appointment(s):* 06/19/2020 1:00 pm - Lesli Escobar FNP at Main Office 05/20/2020 - Lesli Escobar FNP* R09.81 Nasal congestion* New Medication:* Fluticasone Propionate 50 mcg/Act - two sprays each side of nose daily * Cetirizine HCL 10 mg - 1 by mouth QHS * Comments:* advised to use steroid nasal spray and antihistamine. Functional Status Functional Condition Comment Date Status Glasses Active Independent with all ADL's Activ e Independent with all IADL's Acti ve Mental Status Mental Condition Comment Date Status None Active Referrals Refer to Reason for Referral Status Appt Date [facility] right foot pain Closed [address] [place] [address] [phone]
--- OUTSIDE RECORDS SUMMARY | 2020-06-10 11:08 | CCD | Continuity of Care Document ---
Author Author Inge ESCOBAR [facility] Organization Unknown Address [address] [place] [address] Phone [phone] Care Team Providers Care Revenue Stamper Name Role Phone [facility] - Orthopaedic Surgery AUT[facility] [phone] Problems Description No Information Available Social History Type Date Description Comments Sex [...] SIG Qnty Indications Ordering Provide r Date Albuterol Sulfate (2 .5mg/3ML) 0.083% Nebulizer 1 [...] CPT Code Status Date Vaccine Lot # [id number] Given 05/30/2019 Influenza Virus Vaccine, Quadrivalent,age 3 and up,multidose vial [id number] Given 05/30/2019 Prevnar 13 [id number] Vital Signs Date Vital Result Comment 12/18/2019 1:34pm BP Systolic 110 mmHg BP Diastolic 84 mmHg Heart Rate 93 /min Body Temperature 96.9 F Respiratory Rate 17 /min Height 62.0 inches 5'2" Weight 204.25 lb O2 % BldC Oximetry 93 % Peak Expiratory Flow Rate 305 Estimated Peak Flow Rate [place] Body Weight 110 lb BMI (Body Mass Index) 37.4 kg/m2 12/12/2019 4:04pm BP Systolic 129 mmHg BP Diastolic 88 mmHg Heart Rate 90 /min Body Temperature 96.8 F Respiratory Rate 17 /min Height 62.0 inches 5'2" Weight 204.50 lb O2 % BldC Oximetry 98 % Peak Expiratory Flow Rate 305 Estimated Peak Flow Rate [place] Body Weight 110 lb BMI (Body Mass Index) 37.4 kg/m2 Results Description No Information Available Procedures Date Code Description Status 04/25/2006 [id number] Colonoscopy Completed Medical Devices Description No Information Available Encounters Type Date Location Provider Dx Diagnosis Office Visit 05/12/2020 3:45p Main Office Lesli [...] right foot Assessments Date Code Description Provider 05/12/2020 J12.82 Pneumonia due to coronavirus dis ease 2019 Lesli Escobar FNP 05/02/2020 R06.02 Shortness of breath Romaine Escobar, CEREAL MAKER 12/18/2019 I10 Essential (primary) hypertension Lesli Escobar, CEREAL MAKER 12/18/2019 K21.9 Gastro-esophageal reflux disease without esophagitis Lesli Escobar, CEREAL MAKER 12/18/2019 M79.671 Pain in right foot Pleskach, Mol ly, CEREAL MAKER 12/18/2019 M25.561 Pain in right knee Pleskach, Mol ly, CEREAL MAKER 12/12/2019 M79.671 Pain in right foot Pleskach, Mol ly, CEREAL MAKER Plan of Treatment Future Appointment(s):* 06/19/2020 1:00 pm - Lesli Escobar FNP at Main Office 05/12/2020 - Lesli Escobar FNP* J12.82 Pneumonia due to coronavirus disease 2018* Comments:* continue O2, may titrate if oxygen levels are above 92%. Patient advised to return to ER for any increase in difficulty breathing or SOB. Functional Status Functional Condition Comment Date Status Glasses Active Independent with all ADL's Activ e Independent with all IADL's Acti ve Mental Status Mental Condition Comment Date Status None Active Referrals Refer to Dr Reason for Referral Status Appt Date [facility] right foot pain Closed [address] [place] [address] [phone]
--- OUTSIDE RECORDS SUMMARY | 2020-06-10 11:08 | CCD | Continuity of Care Document ---
Author Author Inge ESCOBAR [facility] Organization Unknown Address [address] [place] [address] Phone [phone] Care Team Providers Care Environmental Web Crawler Name Role Phone [facility] - Orthopaedic Surgery AUTM [phone] Problems Description No Information Available Social History [...] SIG Qnty Indications Ordering Provide r Date Pantoprazole Sodium 40mg Tablets D R take one tablet by mouth every day for heartburn/ acid reflux 90tabs Lesli Escobar FNP Triamterene/Hydrochlorothiazide 37.5-25mg Capsules take one capsule by mouth every morning for high blood press ure 90caps Lesli Escobar FNP Metoprolol Succinate ER 25mg Tablets ER 24HR 1 by mouth every day 90tabs Lesli Ecsobar FNP Immunizations CPT Code Status Date Vaccine Lot # [id number] Given 05/30/2019 Influenza Virus Vaccine, Quadrivalent,age 3 and up,multidose vial [id number] Given 05/30/2019 Prevnar 13 [id number] Vital Signs Date Vital Result Comment 12/18/2019 1:34pm BP Systolic 110 mmHg BP Diastolic 84 mmHg Heart Rate 93 /min Body Temperature 96.9 F Respiratory Rate 17 /min Height 62.0 inches 5'2" Weight 204.25 lb O2 % BldC Oximetry 93 % Peak Expiratory Flow Rate 305 Estimated Peak Flow Rate [place] Body Weight 110 lb BMI (Body Mass Index) 37.4 kg/m2 12/12/2019 4:04pm BP Systolic 129 mmHg BP Diastolic 88 mmHg Heart Rate 90 /min Body Temperature 96.8 F Respiratory Rate 17 /min Height 62.0 inches 5'2" Weight 204.50 lb O2 % BldC Oximetry 98 % Peak Expiratory Flow Rate 305 Estimated Peak Flow Rate [place] Body Weight 110 lb BMI (Body Mass Index) 37.4 kg/m2 Results Description No Information Available Procedures Date Code Description Status 04/25/2006 [id number] Colonoscopy Completed Medical Devices Description No Information Available Encounters Type Date Location Provider Dx Diagnosis Office Visit 05/02/2020 12:00p Main Office Lesli Escobar FNP R06.0 2 Shortness of breath Office Visit 12/18/2019 1:30p Main Office Lesli Escobar ELECTRICAL PROJECT MANAGER I10 Essential (primary) hypertension K21.9 Gastro-esophageal reflux dis ease without esophagitis M79.671 Pain in right foot M25.561 Pain in right knee Office Visit 12/12/2019 4:00p Main Office Lesli Escobar ELECTRICAL PROJECT MANAGER M79.6 71 Pain in right foot Assessments Date Code Description Provider 05/02/2020 R06.02 Shortness of breath Romaine Escobar, ELECTRICAL PROJECT MANAGER 12/18/2019 I10 Essential (primary) hypertension Lesli Escobar, ELECTRICAL PROJECT MANAGER 12/18/2019 K21.9 Gastro-esophageal reflux disease without esophagitis Lesli Escobar, ELECTRICAL PROJECT MANAGER 12/18/2019 M79.671 Pain in right foot Pleskach, Mol ly, ELECTRICAL PROJECT MANAGER 12/18/2019 M25.561 Pain in right knee Pleskach, Mol ly, ELECTRICAL PROJECT MANAGER 12/12/2019 M79.671 Pain in right foot Pleskach, Mol ly, ELECTRICAL PROJECT MANAGER Plan of Treatment Future Appointment(s):* 06/19/2020 1:00 pm - Lesli Escobar FNP at Main Office 05/02/2020 - Lesli Escobar ELECTRICAL PROJECT MANAGER* R06.02 Shortness of breath* Comments:* patient has significant SOB with positive COVID exposure also in the presence of untreated HTN. Patient instructed to go to the ER immediately, I recommended calling EMS however she and her son refuse, her son states he will take her. I expressed the urgency of going now and not waiting. Patient verbalizes understanding. Functional Status Functional Condition Comment Date Status Glasses Active Independent with all ADL's Activ e Independent with all IADL's Acti ve Mental Status Mental Condition Comment Date Status None Active Referrals Refer to Reason for Referral Status Appt Date [facility] right foot pain Closed [address] [place] [address] [phone]
--- OUTSIDE RECORDS SUMMARY | 2020-06-10 11:08 | CCD ---
Author Author [facility] Organization [facility] Address Unknown Phone Unavailable Care Team Providers Care Transportation Officer Name Role Phone Gian Field MD Unavailable Unavailable Gian Field MD Unavailable Unavailable Gian Field MD Unavailable Unavailable Gian Field MD Unavailable Unavailable Gian Field MD Unavailable Unavailable Gian Field MD Unavailable Unavailable Gian Field MD Unavailable Unavailable Gian Field MD Unavailable Unavailable Gian Field MD Unavailable Unavailable Gian Field MD Unavailable Unavailable Gian Field MD Unavailable Unavailable Gian Field MD Unavailable Unavailable Gian Field MD Unavailable Unavailable Gian Field MD Unavailable Unavailable Gian Field MD Unavailable Unavailable Gian Field MD Unavailable Unavailable Gian Field MD Unavailable Unavailable Gian Field MD Unavailable Unavailable Gian Field MD Unavailable Unavailable Gian Field MD Unavailable Unavailable Gian Field MD Unavailable Unavailable Gian Field MD Unavailable Unavailable Gian Field MD Unavailable Unavailable Gian Field MD Unavailable Unavailable Gian Field MD Unavailable Unavailable Gian Field MD Unavailable Unavailable Gian Field MD Unavailable Unavailable Gian Field MD Unavailable Unavailable Gian Field MD Unavailable Unavailable Gian Field MD Unavailable Unavailable Gian Field MD Unavailable Unavailable Gian Field MD Unavailable Unavailable Gian Field MD Unavailable Unavailable Gian Field MD Unavailable Unavailable Gian Field MD Unavailable Unavailable Gian Field MD Unavailable Unavailable Gian Field MD Unavailable Unavailable Jasper Fieldtech Unavailable Unavailable Gian Field MD Unavailable Unavailable Jasper Fieldtech Unavailable Unavailable Gian Field MD Unavailable Unavailable Jasper Fieldtech Unavailable Unavailable Jasper Fieldtech Unavailable Unavailable Dann Fieldjtech Unavailable Unavailable Jasper Fieldtech Unavailable Unavailable Dann Fieldjtech Unavailable Unavailable Dann Fieldjtech Unavailable Unavailable Dann Fieldjtech Unavailable Unavailable Dann Fieldjtech Unavailable Unavailable Dann Fieldjtech Unavailable Unavailable Jasper Fieldtech Unavailable Unavailable Jasper Fieldtech Unavailable Unavailable Dann Fieldjtech Unavailable Unavailable Dann Fieldjtech Unavailable Unavailable Jasper Fieldtech Unavailable Unavailable Dann Fieldjtech Unavailable Unavailable Jasper Fieldtech Unavailable Unavailable Jasper Fieldtech Unavailable Unavailable Pleskach, Lesli ABRASIVE GRADER Unavailable Unavailable Pleskach, Lesli ABRASIVE GRADER Unavailable Unavailable Pleskach, Lesli ABRASIVE GRADER Unavailable Unavailable Pleskach, Lesli ABRASIVE GRADER Unavailable Unavailable Pleskach, Lesli ABRASIVE GRADER Unavailable Unavailable Pleskach, Lesli ABRASIVE GRADER Unavailable Unavailable Pleskach, Lesli ABRASIVE GRADER Unavailable Unavailable Pleskach, Lesli ABRASIVE GRADER Unavailable Unavailable Pleskach, Lesli ABRASIVE GRADER Unavailable Unavailable Pleskach, Lesli ABRASIVE GRADER Unavailable Unavailable Pleskach, Lesli ABRASIVE GRADER Unavailable Unavailable Pleskach, Lesli ABRASIVE GRADER Unavailable Unavailable Pleskach, Lesli ABRASIVE GRADER Unavailable Unavailable Pleskach, Lesli ABRASIVE GRADER Unavailable Unavailable Pleskach, Lesli ABRASIVE GRADER Unavailable Unavailable Pleskach, Lesli ABRASIVE GRADER Unavailable Unavailable Pleskach, Lesli ABRASIVE GRADER Unavailable Unavailable Pleskach, Lesli ABRASIVE GRADER Unavailable Unavailable Pleskach, Lesli ABRASIVE GRADER Unavailable Unavailable Pleskach, Lesli ABRASIVE GRADER Unavailable Unavailable Pleskach, Lesli ABRASIVE GRADER Unavailable Unavailable Pleskach, Lesli ABRASIVE GRADER Unavailable Unavailable Pleskach, Lesli ABRASIVE GRADER Unavailable Unavailable Pleskach, Lesli ABRASIVE GRADER Unavailable Unavailable Pleskach, Lesli ABRASIVE GRADER Unavailable Unavailable Pleskach, Lesli ABRASIVE GRADER Unavailable Unavailable Pleskach, Lesli ABRASIVE GRADER Unavailable Unavailable Pleskach, Lesli ABRASIVE GRADER Unavailable Unavailable Pleskach, Lesli ABRASIVE GRADER Unavailable Unavailable Pleskach, Lesli ABRASIVE GRADER Unavailable Unavailable LEES, PILAR MD Unavailable Unavailable LEES, PILAR MD Unavailable Unavailable LEES, PILAR MD Unavailable Unavailable LEES, PILAR MD Unavailable Unavailable LEES, PILAR MD Unavailable Unavailable LEES, PILAR MD Unavailable Unavailable LEES, PILAR MD Unavailable Unavailable LEES, PILAR MD Unavailable Unavailable LEES, PILAR MD Unavailable Unavailable LEES, PILAR MD Unavailable Unavailable LEES, PILAR MD Unavailable Unavailable LEES, PILAR MD Unavailable Unavailable LEES, PILAR MD Unavailable Unavailable LEES, PILAR MD Unavailable Unavailable LEES, PILAR MD Unavailable Unavailable LESE, PILAR MD Unavailable Unavailable LEES, PILAR MD Unavailable Unavailable LEES, PILAR MD Unavailable Unavailable LEES, PILAR MD Unavailable Unavailable LEES, PILAR MD Unavailable Unavailable LEES, PILAR MD Unavailable Unavailable LEES, PILAR MD Unavailable Unavailable LEES, PILAR MD Unavailable Unavailable LEES, PILAR MD Unavailable Unavailable LEES, PILAR MD Unavailable Unavailable LEES, PILAR MD Unavailable Unavailable LEES, PILAR MD Unavailable Unavailable LEES, PILAR MD Unavailable Unavailable LEES, PILAR MD Unavailable Unavailable LEES, PILAR MD Unavailable Unavailable Re-disclosure Warning The records that you are about to access may contain information from federally-assisted alcohol or drug abuse programs. If such information is present, then the following federally mandated warning applies: This information has been disclosed to you from records protected by federal confidentiality rules (42 CFR part 2). The federal rules prohibit you from making any further disclosure of this information unless further disclosure is expressly permitted by the written consent of the person to whom it pertains or as otherwise permitted by 42 CFR part 2. A general authorization for the release of medical or other information is NOT sufficient for this purpose. The Federal rules restrict any use of the information to criminally investigate or prosecute any alcohol or drug abuse patient.The records that you are about to access may contain highly sensitive health information, the redisclosure of which is protected by Article 27-F of the [facility] Public Health law. If you continue you may have access to information: Regarding HIV / AIDS; Provided by facilities licensed or operated by the [facility] Office of Mental Health; or Provided by the [place] Office for People With Developmental Disabilities. If such information is present, then the following [facility] mandated warning applies: This information has been disclosed to you from confidential records which are protected by state law. State law prohibits you from making any further disclosure of this information without the specific written consent of the person to whom it pertains, or as otherwise permitted by law. Any unauthorized further disclosure in violation of state law may result in a fine or assisted sentence or both. A general authorization for the release of medical or other information is NOT sufficient authorization for further disc losure. Encounters Encounter Providers Location Date Indications Data Source(s ) Outpatient Attender: Lesli Jean [facility] Main Office 05/20/2020 1 0:45:00 AM EST [facility] ([facility] Outpatient Attender: Lesli Jean [facility] Main Office 05/12/2020 0 2:45:00 PM EST [facility] ([facility] Outpatient Attender: Lesli Jean [facility] Main Office 05/02/2020 1 1:00:00 AM EST [facility] ([facility] OFFICE OUTPATIENT NEW 30 MINUTES Attender: PILAR LEES MD Ph ysical Therapy 02/12/2020 02:45:00 PM EDT [facility] ([facility]) Outpatient Attender: Lesli Jean [facility] Main Office 12/18/2019 0 1:30:00 PM EDT [facility] ([facility] Outpatient Attender: Lesli Jean [facility] Main Office 12/12/2019 0 4:00:00 PM EDT [facility] ([facility] Outpatient Referrer: Gian MENJIVAR.ROSY 08/2019 12:00:00 AM EDT - 11/28/2019 11:05:10 AM EDT [facility] Outpatient Attender: Gian BURDENROSY 10/23 12:00:00 AM EDT - 11/07/2019 09:58:49 AM EDT [facility] Outpatient Attender: Lesli Jean [facility] Main Office 08/28/2019 1 0:30:00 AM EDT [facility] ([facility] Outpatient Referrer: Gian MARIAROSY-SJP.ROSY 09/2019 12:00:00 AM EDT - 07/30/2019 10:23:56 AM EDT [facility] Outpatient Attender: Gian [email or web address].ROSY 06/23 12:00:00 AM EDT - 07/04/2019 09:33:07 AM EDT [facility] Outpatient Attender: Lesli Jean [facility] Main Office 05/30/2019 1 2:30:00 PM EST [facility] ([facility] Outpatient 05/21/2019 01:36:00 PM EST [facility] Immunizations Vaccine Date Status Description Data Source(s) Pneumococcal conjugate PCV 13 05/30/2019 01:02:00 PM EST completed [facility] ([facility] New in 2012. IIV4 05/30/2019 01:02:00 PM EST completed [facility] Medications Medication Brand Name Start Date Product Form Dose Route Admi nistrative Instructions Pharmacy Instructions Status Indications Reaction Description Data Source(s) cetirizine hydrochloride 10 MG Oral Tablet Cetirizine HCL 05/20/2020 12:00:00 AM EST ORAL active [facility] 50 mcg/actuation 05/20/2020 12:00:00 AM EST spray,suspension 48 USE 2 SPRAYS IN EACH NOSTRIL ONCE DAILY USE 2 SPRAYS IN EACH NOSTRIL ONCE DAILY SOLD: 05/20/2020 [facility] 10 mg 05/20/2020 12:00:00 AM EST tablet 90 TAKE ONE TABLET BY MOUTH AT BEDTIME TAKE ONE TABLET BY MOUTH AT BEDTIME SOLD: 05/20/2020 [facility] Fluticasone Propionate Fluticasone Propionate 05/20/2020 12:00:[address] active [facility] Albuterol 0.83 MG/ML Inhalant Solution Albuterol Sulfate 0 05/13/2020 12:00:00 AM EST active [facility] 2.5 mg /3 mL (0.083 %) 05/13/2020 12:00:00 AM EST solu tion for nebulization 225 INHALE THE CONTENTS OF 1 VIA L VIA NEBULIZER UP TO 4 TIMES A DAY FOR COUGHING AND WHEEZING INHALE THE CONTENTS OF 1 VIAL VIA NEBULI ZER UP TO 4 TIMES A DAY FOR COUGHING AND WHEEZING SOLD: 05/13/2020 [facility] Dexamethasone 2 MG Oral Tablet Dexamethasone 05/05/2020 12:00:[address] ORAL completed [facility] 2 mg 05/05/2020 12:00:00 AM EST tablet 5 TAKE ONE TABLET BY MOUTH EVERY DAY TAKE ONE TABLET BY MOUTH EVERY DAY SOLD: 05/05/2020 [facility] 90 mcg/actuation 05/05/2020 12:00:00 AM EST HFA aerosol inha ler 18 INHALE 2 PUFFS BY MOUTH EVERY 4-6 HOURS NEEDED FOR WHEEZING INHALE 2 PUFFS BY MOUTH EVERY 4-6 HOURS NEEDED FOR WHEEZING SOLD: 05/05/2020 [facility] 200 ACTUAT Albuterol 0.09 MG/ACTUAT Metered Dose Inhal er [Ventolin] Ventolin HFA 05/05/2020 12:00:00 AM EST RESPIRATORY active [facility] 37.5-25 mg 05/03/2020 12:00:00 AM EST capsule 90 TAKE ONE CAPSULE BY MOUTH EVERY MORNING FOR FOR HIGH BLOOD PRESSURE TAKE ONE CAPSULE BY MOUTH EVERY MORNING FOR FOR HIGH BLOOD PRESSURE SOLD: 05/05/2020 [facility] 25 mg 05/03/2020 12:00:00 AM EST tablet extended release 24 hr 90 TAKE ONE TABLET BY MOUTH EVERY DAY TAKE ONE TABLET BY MOUTH EVERY DAY SOLD: 05/05/2020 [facility] 37.5-25 mg 12/19/2019 12:00:00 AM EDT capsule 90 TAKE ONE CAPSULE BY MOUTH EVERY MORNING FOR HIGH BLOOD PRESSURE TAKE ONE CAPSULE BY MOUTH EVERY MORNING FOR HIGH BLOOD PRESSURE SOLD: 12/25/2019 [facility] 40 mg 12/19/2019 12:00:00 AM EDT tablet,delayed release (DR/EC) 90 TAKE ONE TABLET BY MOUTH EVERY DAY TAKE ONE TABLET BY MOUTH EVERY DAY SOLD: 12/25/2019 [facility] 25 mg 12/19/2019 12:00:00 AM EDT tablet extended release 24 hr 90 TAKE ONE TABLET BY MOUTH DAILY TAKE ONE TABLET BY MOUTH DAILY SOLD: 12/25/2019 [facility] 25 mg 08/29/2019 12:00:00 AM EDT tablet extended release 24 hr 90 TAKE 1 TABLET BY MOUTH ONCE DAILY TAKE 1 TABLET BY MOUTH ONCE DAILY SOLD: 08/29/2019 [facility] 37.5-25 mg 08/29/2019 12:00:00 AM EDT capsule 90 TAKE 1 CAPSULE BY MOUTH ONCE DAILY IN THE MORNING FOR HIGH BLOOD PRESSURE TAKE 1 CAPSULE BY MOUTH ONCE DAILY IN THE MORNING FOR HIGH BLOOD PRESSURE SOLD: 08/29/2019 [facility] 37.5-25 mg 07/31/2019 12:00:00 AM EDT capsule 30 TAKE ONE CAPSULE BY MOUTH EVERY MORNING TAKE ONE CAPSULE BY MOUTH EVERY MORNING SOLD: 12/14/2019 [facility] 25 mg 07/31/2019 12:00:00 AM EDT tablet extended release 24 hr 30 TAKE ONE TABLET BY MOUTH EVERY DAY TAKE ONE TABLET BY MOUTH EVERY DAY SOLD: 12/14/2019 [facility] 37.5-25 mg 07/31/2019 12:00:00 AM EDT capsule 30 TAKE ONE CAPSULE BY MOUTH EVERY MORNING TAKE ONE CAPSULE BY MOUTH EVERY MORNING SOLD: 08/30/2019 [facility] 25 mg 07/31/2019 12:00:00 AM EDT tablet extended release 24 hr 30 TAKE ONE TABLET BY MOUTH EVERY DAY TAKE ONE TABLET BY MOUTH EVERY DAY SOLD: 07/31/2019 [facility] 37.5-25 mg 07/31/2019 12:00:00 AM EDT capsule 30 TAKE ONE CAPSULE BY MOUTH EVERY MORNING TAKE ONE CAPSULE BY MOUTH EVERY MORNING SOLD: 07/31/2019 [facility] 25 mg 07/31/2019 12:00:00 AM EDT tablet extended release 24 hr 30 TAKE ONE TABLET BY MOUTH EVERY DAY TAKE ONE TABLET BY MOUTH EVERY DAY SOLD: 08/30/2019 [facility] pantoprazole 40 MG Delayed Release Oral Tablet PANTOPRAZOLE SODIUM 06/15/2019 12:00:00 AM EST tablet,delayed release (DR/EC) 90 T CARITO ONE TABLET BY MOUTH EVERY DAY FOR HEARTBURN/ ACID REFLUX TAKE ONE TABLET BY MOUTH EVERY DAY FOR HEARTBURN/ ACID REFLUX SOLD: 12/13/2019 [facility] 40 mg 06/15/2019 12:00:00 AM EST tablet,delayed release (DR/EC) 90 TAKE ONE TABLET BY MOUTH EVERY DAY FOR HEARTBURN/ ACID REFLUX TAKE ONE TABLET BY MOUTH EVERY DAY FOR HEARTBURN/ ACID REFLUX SOLD: 06/15/2019 [facility] 40 mg 05/17/2019 12:00:00 AM EST tablet,delayed release (DR/EC) 30 TAKE ONE TABLET BY MOUTH EVERY DAY AT 0600 TAKE ONE TABLET BY MOUTH EVERY DAY AT 0600 SOLD: 05/17/2019 [facility] 2.5 mg /3 mL (0.083 %) 05/07/2019 12:00:00 AM EST solu tion for nebulization 75 1 VIAL VIA NEBULIZER THREE TIMES A DAY 1 VIAL VIA NEBULIZER THREE TIMES A DAY SOLD: 05/07/2019 [facility] 20 mg 05/07/2019 12:00:00 AM EST tablet 5 TAKE 1 TABLET BY MOUTH ONCE A DAY FOR 5 DAYS TAKE 1 TABLET BY MOUTH ONCE A DAY FOR 5 DAYS SOLD: 05/07/2019 [facility] 250 mg 05/07/2019 12:00:00 AM EST tablet 6 TAKE TWO TABLETS BY MOUTH AT ONCE ON THE FIRST DAY THEN TAKE ONE DAILY THEREAFTER TAKE TWO TABLETS BY MOUTH AT ONCE ON THE FIRST DAY THEN TAKE ONE DAILY THEREAFTER SOLD: 05/07/2019 [facility] NEBULIZER 05/07/2019 12:00:00 AM EST misc 1 USE DIRECTED USE DIRECTED SOLD: 05/07/2019 [facility] Insurance Providers Payer name Policy type / Coverage type Policy ID Covered republican ID Covered republican's relationship to benson Policy [place] Plan Information MEDICARE [id number] SP [id number] MEDICARE [id number] Pretty [id number] MEDICARE C [id number] S [id number] MEDICARE [id number] SP [id number] Problems, Conditions, and Diagnoses Code Display Name Description Problem Type Effective Dates Data Source(s) 461716674 Gastroesophageal reflux disease Gastroesophageal reflux disease Problem 05/20/2020 12:00:00 AM EST [facility] [id number] Essential hypertension Essential hypertension Problem 05/20/2020 12:00:00 AM EST [facility] R06.09 Other forms of dyspnea Other forms of dyspnea Diagnosi s 11/28/2019 07:21:05 AM EDT [facility] R07.89 Other chest pain Other chest pain Diagnosis 11/28/2019 07 :21:05 AM EDT [facility] Surgeries/Procedures Procedure Description Date Indications Data Source(s) RADEX FOOT COMPLETE MINIMUM 3 VIEWS 02/12/2020 12:00:0 0 AM EDT [facility] ([facility]) Results ID Date Data Source [id number] 05/02/2020 12:59:00 PM EST [facility] Name Value Range Interpretation Code Description Data Alondra rce(s) Supporting Document(s) Respiratory pathogens identified [Type] in Nasopharynx by Probe and target amplification method SARS-CoV-2 (COVID 19) [facility] This lab was ordered by [facility] a nd reported by [facility]. ID Date Data Source [id number] 06/05/2019 08:17:00 AM EST [facility] Name Value Range Interpretation Code Description Data Alondra rce(s) Supporting Document(s) Estimated Average Glucose 134 mg/dL 60-110 [facility] Hemoglobin A1c 6.3 % [facility] REFERENCE RANGES: 4.5-5.6% NORMAL 5.7-6.4% SUGGESTS IMPAIRED GLUCOSE META BOLISM >= 6.5% ABNORMAL ID Date Data Source [id number] 06/05/2019 08:17:00 AM EST [facility] Name Value Range Interpretation Code Description Data Alondra rce(s) Supporting Document(s) Calcitriol [Mass/volume] in Serum or Plasma 37.9 pg/mL 19.9-79.3 [facility] Performed at: [address] [id number] Body Cleaner: Evelia De Jesus MD, Phone: [phone] ID Date Data Source [id number] 06/05/2019 08:17:00 AM EST [facility] ([facility] Name Value Range Interpretation Code Description Data Alondra rce(s) Supporting Document(s) Triglycerides Level 116 mg/dL [facility] Cholesterol Level 143 mg/dL [facility] ([facility] LDL Cholesterol 73 mg/dL [facility] HDL Cholesterol 47 mg/dL [facility] Cholesterol Risk Ratio 3.042 [facility] Non-HDL-C 96 mg/dL [facility] Procedure Social History Code Duration Value Status Description Data Source(s ) Smoking 12/18/2019 12:00:00 AM EDT Patient is a former smoker completed Patient is a former smoker [facility] Vital Signs ID Date Data Source UNK Name Value Range Interpretation Code Description Data Source(s) Body mass index (BMI) [Ratio] 37.2 kg/m2 37.2 k g/m2 [facility] Body weight 200.38 [lb_av] 200.38 [lb_av] [facility] ([facility] Body height 61.5 [in_i] 61.5 [in_i] [facility] 5'1.50" Body temperature 96.4 [degF] 96.4 [degF] [facility] Body mass index (BMI) [Ratio] 37.4 kg/m2 37.4 k g/m2 [facility] [place] body weight 110 [lb_av] 110 [lb_av] [facility] Oxygen saturation in Arterial blood by Pulse oximetry 93 % 93 % [facility] Body weight 204.25 [lb_av] 204.25 [lb_av] [facility] Body height 62.0 [in_i] 62.0 [in_i] [facility] 5'2" Respiratory rate 17 /min 17 /min [facility] ( [facility] Body temperature 96.9 [degF] 96.9 [degF] [facility] Heart rate 93 /min 93 /min [facility] Diastolic blood pressure 84 mm[Hg] 84 mm[Hg] [facility] Systolic blood pressure 110 mm[Hg] 110 mm[Hg] [facility] Body mass index (BMI) [Ratio] 37.4 kg/m2 37.4 k g/m2 [facility] [place] body weight 110 [lb_av] 110 [lb_av] [facility] Oxygen saturation in Arterial blood by Pulse oximetry 98 % 98 % [facility] Body weight 204.50 [lb_av] 204.50 [lb_av] [facility] Body height 62.0 [in_i] 62.0 [in_i] [facility] 5'2" Respiratory rate 17 /min 17 /min [facility] ( [facility] Body temperature 96.8 [degF] 96.8 [degF] [facility] Heart rate 90 /min 90 /min [facility] Diastolic blood pressure 88 mm[Hg] 88 mm[Hg] [facility] Systolic blood pressure 129 mm[Hg] 129 mm[Hg] [facility] Body mass index (BMI) [Ratio] 38.3 kg/m2 38.3 k g/m2 [facility] Oxygen saturation in Arterial blood by Pulse oximetry 93 % 93 % [facility] Body weight 209.38 [lb_av] 209.38 [lb_av] [facility] Body height 62.0 [in_i] 62.0 [in_i] [facility] 5'2" Respiratory rate 20 /min 20 /min [facility] ( [facility] Body temperature 98.1 [degF] 98.1 [degF] [facility] Heart rate 80 /min 80 /min [facility] Diastolic blood pressure 93 mm[Hg] 93 mm[Hg] [facility] Systolic blood pressure 130 mm[Hg] 130 mm[Hg] [facility] Diastolic blood pressure 92 mm[Hg] 92 mm[Hg] [facility] Systolic blood pressure 145 mm[Hg] 145 mm[Hg] [facility] Body mass index (BMI) [Ratio] 38.5 kg/m2 38.5 k g/m2 [facility] Oxygen saturation in Arterial blood by Pulse oximetry 92 % 92 % [facility] Body weight 210.38 [lb_av] 210.38 [lb_av] [facility] Body height 62.0 [in_i] 62.0 [in_i] [facility] 5'2" Respiratory rate 18 /min 18 /min [facility] ( [facility] Body temperature 99.4 [degF] 99.4 [degF] [facility] Heart rate 88 /min 88 /min [facility] Diastolic blood pressure 72 mm[Hg] 72 mm[Hg] [facility] Systolic blood pressure 96 mm[Hg] 96 mm[Hg] [facility]
--- OUTSIDE RECORDS SUMMARY | 2020-06-10 11:08 | CCD | Continuity of Care Document ---
Author Author Inge ESCOBAR [facility] Organization Unknown Address [address] [facility] [address] [place] [address] Phone [phone] Care Team Providers Care Grey Iron Molder Name Role Phone [facility] - Orthopaedic Surgery AUTM [phone] Problems Description No Information Available Social History [...] SIG Qnty Indications Ordering Provide r Date Ventolin HFA 108(90Base) mcg/Act A erosol 2 [...] CPT Code Status Date Vaccine Lot # [id number] Given 05/30/2019 Influenza Virus Vaccine, Quadrivalent,age 3 and up,multidose vial [id number] Given 05/30/2019 Prevnar 13 [id number] Vital Signs Date Vital Result Comment 12/18/2019 1:34pm BP Systolic 110 mmHg BP Diastolic 84 mmHg Heart Rate 93 /min Body Temperature 96.9 F Respiratory Rate 17 /min Height 62.0 inches 5'2" Weight 204.25 lb O2 % BldC Oximetry 93 % Peak Expiratory Flow Rate 305 Estimated Peak Flow Rate [place] Body Weight 110 lb BMI (Body Mass Index) 37.4 kg/m2 12/12/2019 4:04pm BP Systolic 129 mmHg BP Diastolic 88 mmHg Heart Rate 90 /min Body Temperature 96.8 F Respiratory Rate 17 /min Height 62.0 inches 5'2" Weight 204.50 lb O2 % BldC Oximetry 98 % Peak Expiratory Flow Rate 305 Estimated Peak Flow Rate [place] Body Weight 110 lb BMI (Body Mass Index) 37.4 kg/m2 Results Description No Information Available Procedures Date Code Description Status 04/25/2006 79815576 Colonoscopy Completed Medical Devices Description No Information Available Encounters Type Date Location Provider Dx Diagnosis Office Visit 05/02/2020 12:00p Main Office Lesli Escobar, EXCEL EXPERT R06.0 2 Shortness of breath Office Visit 12/18/2019 1:30p Main Office [place] Lesli, EXCEL EXPERT I10 Essential (primary) hypertension K21.9 Gastro-esophageal reflux dis ease without esophagitis M79.671 Pain in right foot M25.561 Pain in right knee Office Visit 12/12/2019 4:00p Main Office Дмитрий Escobary, EXCEL EXPERT M79.6 71 Pain in right foot Assessments Date Code Description Provider 05/02/2020 R06.02 Shortness of breath Pleskach Mo lly, EXCEL EXPERT 12/18/2019 I10 Essential (primary) hypertension Plefrancesco Lesli, EXCEL EXPERT 12/18/2019 K21.9 Gastro-esophageal reflux disease without esophagitis Ted Lesli, EXCEL EXPERT 12/18/2019 M79.671 Pain in right foot Pleskach, Mol ly, EXCEL EXPERT 12/18/2019 M25.561 Pain in right knee Pleskach, Mol ly, EXCEL EXPERT 12/12/2019 M79.671 Pain in right foot Pleskach, Mol ly, EXCEL EXPERT Plan of Treatment Future Appointment(s):* 06/19/2020 1:00 pm - Lesli Escobar FNP at Main Office Functional Status Functional Condition Comment Date Status Glasses Active Independent with all ADL's Activ e Independent with all IADL's Acti ve Mental Status Mental Condition Comment Date Status None Active Referrals Refer to Dr Reason for Referral Status Appt Date [facility] right foot pain Closed [address] [place] [address] [phone]
--- OUTSIDE RECORDS SUMMARY | 2020-06-10 11:08 | CCD | Continuity of Care Document ---
Author Author Inge ESCOBAR [facility] Organization Unknown Address [address] [facility] [place] [address] [place] [address] Phone [phone] Care Team Providers Care Rural Health Consultant Name Role Phone [facility] - Orthopaedic Surgery AUTM [phone] Problems Description No Information Available Social History [...] CPT Code Status Date Vaccine Lot # [id number] Given 05/30/2019 Influenza Virus Vaccine, Quadrivalent,age 3 and up,multidose vial [id number] Given 05/30/2019 Prevnar 13 [id number] Vital Signs Date Vital Result Comment 12/18/2019 1:34pm BP Systolic 110 mmHg BP Diastolic 84 mmHg Heart Rate 93 /min Body Temperature 96.9 F Respiratory Rate 17 /min Height 62.0 inches 5'2" Weight 204.25 lb O2 % BldC Oximetry 93 % Peak Expiratory Flow Rate 305 Estimated Peak Flow Rate [place] Body Weight 110 lb BMI (Body Mass Index) 37.4 kg/m2 12/12/2019 4:04pm BP Systolic 129 mmHg BP Diastolic 88 mmHg Heart Rate 90 /min Body Temperature 96.8 F Respiratory Rate 17 /min Height 62.0 inches 5'2" Weight 204.50 lb O2 % BldC Oximetry 98 % Peak Expiratory Flow Rate 305 Estimated Peak Flow Rate [place] Body Weight 110 lb BMI (Body Mass Index) 37.4 kg/m2 Results Description No Information Available Procedures Date Code Description Status 04/25/2006 [id number] Colonoscopy Completed Medical Devices Description No Information [...] 05/02/2020 R06.02 Shortness of breath Romaine Escobar, BUTCHER OR SMALLGOODS MAKER 12/18/2019 I10 Essential (primary) hypertension Lesli Escobar FNP 12/18/2019 K21.9 Gastro-esophageal reflux disease without esophagitis Lesil Escobar FNP 12/18/2019 M79.671 Pain in right foot Pleskach, Mol ly, BUTCHER OR [employer] MAKER 12/18/2019 M25.561 Pain in right knee Pleskach, Mol ly, BUTCHER OR SMALLGOOD[employer] MAKER 12/12/2019 M79.671 Pain in right foot Pleskach, Mol ly, BUTCHER OR SMALLGOOD[employer] MAKER Plan of Treatment Future Appointment(s):* 06/19/2020 1:00 pm - Lesli Escobar FNP at Main Office 05/20/2020 - Lesli Escobar FNP* R09.81 Nasal congestion* New Medication:* Fluticasone Propionate 50 mcg/Act - two sprays each side of nose daily * Cetirizine HCL 10 mg - 1 by mouth QHS Functional Status Functional Condition Comment Date Status Glasses Active Independent with all ADL's Activ e Independent with all IADL's Acti ve Mental Status Mental Condition Comment Date Status None Active Referrals Refer to Reason for Referral Status Appt Date [facility] right foot pain Closed [address] [place] [address] [phone]
--- OUTSIDE RECORDS SUMMARY | 2020-06-10 11:08 | CCD | Continuity of Care Document ---
Author Author Inge ESCOBAR [facility] Organization Unknown Address [address] [place] [address] Phone [phone] Care Team Providers Care Mortgage Branch Manager Name Role Phone [facility] - Orthopaedic Surgery AUTM [phone] Problems Description No Information Available Social History [...] mouth every day 90tabs Lesli Escobar FNP Immunizations CPT Code Status Date Vaccine Lot # [id number] Given 05/30/2019 Influenza Virus Vaccine, Quadrivalent,age 3 and up,multidose vial [id number] Given 05/30/2019 Prevnar 13 [id number] Vital Signs Date Vital Result Comment 12/18/2019 1:34pm BP Systolic 110 mmHg BP Diastolic 84 mmHg Heart Rate 93 /min Body Temperature 96.9 F Respiratory Rate 17 /min Height 62.0 inches 5'2" Weight 204.25 lb O2 % BldC Oximetry 93 % Peak Expiratory Flow Rate 305 Estimated Peak Flow Rate [place] Body Weight 110 lb BMI (Body Mass Index) 37.4 kg/m2 12/12/2019 4:04pm BP Systolic 129 mmHg BP Diastolic 88 mmHg Heart Rate 90 /min Body Temperature 96.8 F Respiratory Rate 17 /min Height 62.0 inches 5'2" Weight 204.50 lb O2 % BldC Oximetry 98 % Peak Expiratory Flow Rate 305 Estimated Peak Flow Rate [place] Body Weight 110 lb BMI (Body Mass Index) 37.4 kg/m2 Results Description No Information Available Procedures Date Code Description Status 04/25/2006 [id number] Colonoscopy Completed Medical Devices Description No Information Available Encounters Type Date Location Provider Dx Diagnosis Office Visit 12/18/2019 1:30p Main Office PleДмитрий mayay, CARE NAVIGATOR I10 Essential (primary) hypertension K21.9 Gastro-esophageal reflux dis ease without esophagitis M79.671 Pain in right foot M25.561 Pain in right knee Office Visit 12/12/2019 4:00p Main Office Pleskach, Lesli, CARE NAVIGATOR M79.6 71 Pain in right foot Assessments Date Code Description Provider 12/18/2019 I10 Essential (primary) hypertension Pleskach, Lesli, CARE NAVIGATOR 12/18/2019 K21.9 Gastro-esophageal reflux disease without esophagitis Pleskach, Lesli, CARE NAVIGATOR 12/18/2019 M79.671 Pain in right foot Pleskach, Mol ly, CARE NAVIGATOR 12/18/2019 M25.561 Pain in right knee Pleskach, Mol ly, CARE NAVIGATOR 12/12/2019 M79.671 Pain in right foot Pleskach, Mol ly, CARE NAVIGATOR Plan of Treatment Future Appointment(s):* 06/19/2020 1:00 pm - Lesli Escobar FNP at Main Office Functional Status Functional Condition Comment Date Status Glasses Active Independent with all ADL's Activ e Independent with all IADL's Acti ve Mental Status Mental Condition Comment Date Status None Active Referrals Refer to Reason for Referral Status Appt Date [facility] right foot pain Closed [address] [place] [id number] [phone]
[2020-06-10] MEDS ORDERED: FLON1SPR NARES (11:17)
[2020-06-10] MEDS ORDERED: CETI10CH PO (11:17)
[2020-06-10] MEDS ORDERED: ALBU83IN NEB (11:17)
--- NOTE | 2020-06-10 12:11 | REP ---
INDICATION: Coronavirus workup. COMPARISON: Comparison chest x-ray 02 May 2020. TECHNIQUE: Portable upright AP chest radiograph. FINDINGS: There is a very large hiatal hernia overlying the left heart unchanged. Cardiomegaly is observed. This is also unchanged. There is fairly dense interstitial infiltrate in the right upper lobe new 16 May 2019 and 02 May 2020 prior studies. There is also interstitial infiltrate in the right base. There are increased interstitial markings in the left base although these may be chronic. Pleural angles are sharp. The aorta is tortuous.. IMPRESSION: Right upper lobe and right base infiltrate consistent with pneumonia. Cardiomegaly. Large hiatal hernia. Interstitial fibrosis pattern.. <Electronically signed by Yaya Karimi > 06/10/20 [id number]
[2020-06-10 12:14] LABS: INR 1.03; PROTHROMBIN TIME 13.7 SECONDS (12.5-14.3)
[2020-06-10 12:15] LABS: BASO # 0.1 10^3/uL (0.0-0.2); BASO % 0.8 % (0.0-1.0); EOS # 0.2 10^3/uL (0.0-0.5); EOS % 1.8 % (0.0-3.0); HEMATOCRIT 37.8 % (36.0-47.0); HEMOGLOBIN 11.9 g/dl (12.0-15.5); LYMPH # 1.4 10^3/uL (1.5-5.0); LYMPH % 14.6 % (24.0-44.0); MEAN CORPUSCULAR HEMOGLOBIN 30.8 pg (27.0-33.0); MEAN CORPUSCULAR HGB CONC 31.5 g/dl (32.0-36.5); MEAN CORPUSCULAR VOLUME 97.9 fl (80.0-96.0); MONO % 10.5 % (2.0-8.0); NEUTROPHILS # 6.7 10^3/uL (1.5-8.5); NEUTROPHILS % 70.2 % (36.0-66.0); PLATELET COUNT, AUTOMATED 496 10^3/uL (150-450); RED BLOOD COUNT 3.86 10^6/uL (4.00-5.40); WHITE BLOOD COUNT 9.5 10^3/uL (4.0-10.0)
[2020-06-10 12:15] LABS: PARTIAL THROMBOPLASTIN TIME 40.6 SECONDS (24.2-38.5)
[2020-06-10 12:17] LABS: D-DIMER QUANT 2064.27 ng/ml (<500)
[2020-06-10 12:28] LABS: HEMOGLOBIN A1c 5.9 %
[2020-06-10 12:49] LABS: ALT/SGPT 7 U/L (12-78); BILIRUBIN,TOTAL 0.5 MG/DL (0.2-1.0); BLOOD UREA NITROGEN 16 MG/DL (7-18); C REACTIVE PROTEIN QUANTITATIV 2.19 MG/DL (0.00-0.30); CALCIUM LEVEL 9.9 MG/DL (8.8-10.2); CARBON DIOXIDE LEVEL 36 MEQ/L (21-32); CHLORIDE LEVEL 96 MEQ/L (98-107); CPK CREATINE PHOSPHOKINASE 41 U/L (26-192); CREATININE FOR GFR 1.26 MG/DL (0.55-1.30); DIGOXIN LEVEL 0.1 NG/ML (0.5-2.0); FERRITIN 350 NG/ML (8-252); FREE T4 1.16 NG/DL (0.76-1.46); GLOMERULAR FILTRATION RATE 44.1 (>39); GLUCOSE, FASTING 98 MG/DL (70-100); LDH LACTATE DEHYDROGENASE 234 U/L (84-246); MAGNESIUM LEVEL 1.5 MG/DL (1.8-2.4); MB/CK RELATIVE INDEX 2.44 (< OR =4); POTASSIUM SERUM 4.5 MEQ/L (3.5-5.1); SODIUM LEVEL 135 MEQ/L (136-145); TOTAL PROTEIN 8.1 GM/DL (6.4-8.2); TROPONIN I < 0.02 NG/ML (< 0.10)
--- OUTSIDE RECORDS SUMMARY | 2020-06-10 13:10 | CCD ---
Author Author [facility] Organization [facility] Address Unknown Phone Unavailable Care Team Providers Care Tire Fixer Name Role Phone Gian Field MD Unavailable [...] Unavailable Gian Field MD Unavailable Unavailable Jasper [employer] Unavailable Unavailable Gian Field MD Unavailable Unavailable [...] Unavailable [employer]asper [employer] Unavailable Unavailable Pleskach, Lesli COMMERCIAL COLLECTIONS SPECIALIST Unavailable Unavailable Pleskach, Lesli COMMERCIAL COLLECTIONS SPECIALIST Unavailable Unavailable Pleskach, Lesli COMMERCIAL COLLECTIONS SPECIALIST Unavailable Unavailable Pleskach, Lesli COMMERCIAL COLLECTIONS SPECIALIST Unavailable Unavailable Pleskach, Lesli COMMERCIAL COLLECTIONS SPECIALIST Unavailable Unavailable Pleskach, Lesli COMMERCIAL COLLECTIONS SPECIALIST Unavailable Unavailable Pleskach, Lesli COMMERCIAL COLLECTIONS SPECIALIST Unavailable Unavailable Pleskach, Lesli COMMERCIAL COLLECTIONS SPECIALIST Unavailable Unavailable Pleskach, Lesli COMMERCIAL COLLECTIONS SPECIALIST Unavailable Unavailable Pleskach, Lesli COMMERCIAL COLLECTIONS SPECIALIST Unavailable Unavailable Pleskach, Lesli COMMERCIAL COLLECTIONS SPECIALIST Unavailable Unavailable Pleskach, Lesli COMMERCIAL COLLECTIONS SPECIALIST Unavailable Unavailable Pleskach, Lesli COMMERCIAL COLLECTIONS SPECIALIST Unavailable Unavailable Pleskach, Lesli COMMERCIAL COLLECTIONS SPECIALIST Unavailable Unavailable Pleskach, Lesli COMMERCIAL COLLECTIONS SPECIALIST Unavailable Unavailable Pleskach, Lesli COMMERCIAL COLLECTIONS SPECIALIST Unavailable Unavailable Pleskach, Lesli COMMERCIAL COLLECTIONS SPECIALIST Unavailable Unavailable Pleskach, Lesli COMMERCIAL COLLECTIONS SPECIALIST Unavailable Unavailable Pleskach, Lesli COMMERCIAL COLLECTIONS SPECIALIST Unavailable Unavailable Pleskach, Lesli COMMERCIAL COLLECTIONS SPECIALIST Unavailable Unavailable Pleskach, Lesli COMMERCIAL COLLECTIONS SPECIALIST Unavailable Unavailable Pleskach, Lesli COMMERCIAL COLLECTIONS SPECIALIST Unavailable Unavailable Pleskach, Lesli COMMERCIAL COLLECTIONS SPECIALIST Unavailable Unavailable Pleskach, Lesli COMMERCIAL COLLECTIONS SPECIALIST Unavailable Unavailable Pleskach, Lesli COMMERCIAL COLLECTIONS SPECIALIST Unavailable Unavailable Pleskach, Lesli COMMERCIAL COLLECTIONS SPECIALIST Unavailable Unavailable Pleskach, Lesli COMMERCIAL COLLECTIONS SPECIALIST Unavailable Unavailable Pleskach, Lesli COMMERCIAL COLLECTIONS SPECIALIST Unavailable Unavailable Pleskach, Lesli COMMERCIAL COLLECTIONS SPECIALIST Unavailable Unavailable Pleskach, Lesli COMMERCIAL COLLECTIONS SPECIALIST Unavailable Unavailable LEES, PILAR MD Unavailable Unavailable [...] is protected by Article 27-F of the [place] Public [employer] law. If you continue you may have access to information: Regarding HIV / AIDS; Provided by facilities licensed or operated by the [place] Office of Mental Health; or Provided by the [place] Office for People With Developmental Disabilities. If such information is present, then the following [place] [employer] mandated warning applies: This information has been [...] law may result in a fine or retirement sentence or both. A general authorization for the release of medical or other information is NOT sufficient authorization for further disc losure. Encounters Encounter Providers Location Date Indications Data Source(s ) Outpatient Attender: Lesli Jean [facility] Main Office 05/20/2020 1 0:45:00 AM EST [facility] ([facility] Outpatient Attender: Lesli Jean [facility] Main Office 05/12/2020 0 2:45:00 PM EST [facility] ([facility] Outpatient Attender: Lesli Jean [facility] Main Office 05/02/2020 1 1:00:00 AM EST [facility] ([facility] OFFICE OUTPATIENT NEW 30 MINUTES Attender: PILAR LEES MD Ph ysical Therapy 02/12/2020 02:45:00 PM EDT [facility] ([facility] Outpatient Attender: Lesli Jean [facility] Main Office 12/18/2019 0 1:30:00 PM EDT [facility] ([facility] Outpatient Attender: Lesli Jean [facility] Main Office 12/12/2019 0 4:00:00 PM EDT [facility] ([facility] Outpatient Referrer: Gian MENJIVAR.ROSY 08/2019 12:00:00 AM EDT - 11/28/2019 11:05:10 AM EDT [facility] Outpatient Attender: Gian BURDENROSY 10/23 12:00:00 AM EDT - 11/07/2019 09:58:49 AM EDT [facility] Outpatient Attender: Lesli Jean [facility] Main Office 08/28/2019 1 0:30:00 AM EDT [facility] ([facility] Outpatient Referrer: Gian MARIAROSY-SJP.ROSY 09/2019 12:00:00 AM EDT - 07/30/2019 10:23:56 AM EDT [facility] Outpatient Attender: Gian VALERIOSJDilshad.ROSY 06/23 12:00:00 AM EDT - 07/04/2019 09:33:07 AM EDT [facility] Outpatient Attender: Lesli Jean [facility] Main Office 05/30/2019 1 2:30:00 PM [...] type / Coverage type Policy ID Covered green party ID Covered green party's relationship to benson Policy [place] Plan Information MEDICARE [id number] SP [id number] MEDICARE [id number] Pretty [id number] X63 MEDICARE C [id number] S [id number] [id number] MEDICARE [id number] SP [id number] Problems, Conditions, and Diagnoses Code Display Name Description Problem Type Effective Dates Data Source(s) 721830105 Gastroesophageal reflux disease Gastroesophageal reflux disease Problem 05/20/2020 12:00:00 AM EST [facility] ([facility] [id number] Essential hypertension Essential hypertension Problem 05/20/2020 12:00:00 AM EST [facility] ([facility] R06.09 Other forms of dyspnea Other forms of dyspnea Diagnosi s 11/28/2019 07:21:05 AM EDT [facility] R07.89 Other chest pain Other chest pain Diagnosis 11/28/2019 07 :21:05 AM EDT [facility] Surgeries/Procedures Procedure Description Date Indications Data Source(s) RADEX FOOT COMPLETE MINIMUM 3 VIEWS 02/12/2020 12:00:0 0 AM EDT [facility] ([facility]) Results ID Date Data Source [id number] 05/02/2020 12:59:00 PM EST [facility] Name Value Range Interpretation Code Description Data Alondra rce(s) Supporting Document(s) Respiratory pathogens identified [Type] in Nasopharynx by Probe and target amplification method SARS-CoV-2 (COVID 19) [facility] This lab was ordered by [facility] a nd reported by [facility]. ID Date Data Source [id number] 06/05/2019 08:17:00 AM EST [facility] ([facility] Name Value Range Interpretation Code Description Data Alondra rce(s) Supporting Document(s) Estimated Average Glucose 134 mg/dL 60-110 [facility] ([facility] Hemoglobin A1c 6.3 % [facility] ([facility] REFERENCE RANGES: 4.5-5.6% NORMAL 5.7-6.4% SUGGESTS IMPAIRED GLUCOSE META BOLISM >= 6.5% ABNORMAL ID Date Data Source [id number] 06/05/2019 08:17:00 AM EST [facility] ([facility] Name Value Range Interpretation Code Description Data Alondra rce(s) Supporting Document(s) Calcitriol [Mass/volume] in Serum or Plasma 37.9 pg/mL 19.9-79.3 [facility] ([facility] Performed at: [address] [id number] [address] [employer] Assistant: Evelia De Jesus MD, Phone: [phone] ID Date Data Source [id number] 06/05/2019 08:17:00 AM EST [facility] ([facility] [...] [Ratio] 37.2 kg/m2 37.2 k g/m2 [facility] ([facility] Body weight 200.38 [lb_av] 200.38 [lb_av] [facility] T ([facility] Body height 61.5 [in_i] 61.5 [in_i] [facility] ([facility] 5'1.50" Body temperature 96.4 [degF] 96.4 [degF] [facility] ([facility] Body mass index (BMI) [Ratio] 37.4 kg/m2 37.4 k g/m2 [facility] ([facility] [place] body weight 110 [lb_av] 110 [lb_av] [facility] T ([facility] Oxygen saturation in Arterial blood by Pulse oximetry 93 % 93 % [facility] Body weight 204.25 [lb_av] [...] k g/m2 [facility] ([facility] [place] body weight 110 [lb_av] 110 [lb_av] MED[facility] [...] 18 /min 18 /min [facility] ( [facility] Body temperature 99.4 [degF] 99.4 [degF] [facility] Heart rate 88 /min 88 /min [facility] Diastolic blood pressure 72 mm[Hg] 72 mm[Hg] [facility] Systolic blood pressure 96 mm[Hg] 96 mm[Hg] M [facility] ([facility]
[2020-06-10] MEDS ORDERED: cefTRIAXone SOD 1 GM in D5W MINI-BAG PLUS 50 ML IV ONE (13:15)
[2020-06-10] MEDS ORDERED: AZITHROMYCIN INJ 500 MG, VIAL MATE ADAPTER 1 EACH in D5W 250 ML IV ONE (13:15)
[2020-06-10] MEDS ORDERED: MAG SULF 1GM/100ML (MAG RUN) 1 GM in IV 1 EA IV ONE (13:15)
[2020-06-10] MEDS ORDERED: ISOVUE-370 76% 100ML VIAL As Ordered ONE (13:29)
--- NOTE | 2020-06-10 14:33 | REP ---
INDICATION: elevated ddimer. COMPARISON: Comparison CT studies are from 02 May 2020 and 16 May 2019.. TECHNIQUE: Contrast dose: 75 ML of Isovue [address] technique: Helical scanning is acquired and overlapping 1.5 mm and contiguous 3 mm axial images are reformatted. In addition, maximum intensity projection and multiplanar re-formation images are generated in sagittal and coronal imaging projections. FINDINGS: There is good opacification in the pulmonary arterial tree. There is no evidence of vessel cut off or filling defect to suggest pulmonary embolus. Homogeneous opacity is seen in the thoracic aorta. There is no evidence of aneurysm or dissection. There is dilation of the main pulmonary artery and and the main right and left pulmonary arteries. The main pulmonary artery measures 3.7 cm in greatest transverse dimension. The ascending aorta is somewhat ectatic as well measuring 3.9 cm. No filling defect is seen. There is no evidence of aortic dissection. 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 This measures 18 mm in craniocaudal span by 11 mm in anteroposterior span from the expected location of the posterior aortic wall. This is unchanged from the [address] study. No other evidence of thoracic aneurysm is seen. There is a very large hiatal hernia containing the gastric fundus as well as the body and tail of the pancreas. This is unchanged as well. No hilar or mediastinal mass or adenopathy is observed. Lung window settings demonstrate progressive interstitial opacification in the right upper lobe more prominent than on the 02 May 2020 study. There is some progressive predominantly peripheral interstitial opacity in the right lower lobe as well. There are peripheral patchy interstitial infiltrates in the left upper lobe which are slightly more prominent than on the prior study. No pleural effusion is seen. In the upper abdomen, there is some fatty infiltration of the liver. Normal adrenal glands. There is an intrarenal calcification in the upper pole of the left kidney. IMPRESSION: No CT evidence of pulmonary embolus. Huge hiatal hernia containing the gastric fundus and the body and tail of the pancreas. Progressive interstitial infiltrates particularly in the right upper lobe consistent with pneumonia. Cardiomegaly. Centrally dilated pulmonary arteries consistent with pulmonary arterial hypertension. 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 <Electronically signed by Yaya Karimi > 06/10/20 [id number]
[2020-06-10] MEDS ORDERED: CETI-24 PO (15:12)
[2020-06-10] MEDS ORDERED: ALBUTEROL SULFATE 2.5 MG/0.5 ML INH NEB SOLN NEB PRN (17:00)
--- NOTE | 2020-06-10 17:11 | HPEPDOC ---
[facility] Medical History & Physical Date of Admission Jun 10, 2020 Date of Service: Jun 10, 2020 Attending Physician: SANTIAGO NGO MD History and Physical CHIEF COMPLAINT: Shortness of breath HISTORY OF PRESENT ILLNESS: 75-year-old female with past medical history of hypertension and recent diagnosis of presents from home with worsening dyspnea. Patient was sent home on home oxygen after being hospitalized for Covid last month. She was using 3 L of oxygen via nasal cannula, reports improvement in her breast for symptoms over the past few weeks after leaving the hospital. Her symptoms started to worsen over the past 48 hours with worsening dyspnea. She denies any associated symptoms, reports mild cough over the past few weeks which has remained unchanged over the last 48 hours. She denies any sputum production, fever, chest pain, nausea, vomiting or diarrhea. She has a large hiatal hernia which is chronic, denies symptoms associated with GERD at this time. She denies any history of aspiration or dysphagia. 10 point review of system is negative except for above PAST MEDICAL HISTORY: 1. Hypertension. 2. Hiatal hernia. PAST SURGICAL HISTORY: 1. Gilda fundoplication. SOCIAL HISTORY: Previous smoker. Social alcohol use. Denies drug use FAMILY HISTORY: Father had emphysema. Mother had diabetes mellitus ALLERGIES: Please see below. HOME MEDICATIONS: Please see below. PHYSICAL EXAMINATION: VITAL SIGNS: Please see below. GENERAL: No distress HEENT: Normocephalic, atraumatic, moist mucous membranes NECK: Supple CARDIOVASCULAR EXAMINATION: S1, S2, no murmurs RESPIRATORY EXAMINATION: Bilateral diffuse rhonchi, right greater than left. No wheezing appreciated ABDOMINAL EXAMINATION: Soft, nontender, nondistended, positive bowel sounds EXTREMITIES: Range of motion intact SKIN: No rash NEUROLOGICAL EXAMINATION: Alert and oriented 3, no focal deficits PSYCHIATRIC EXAMINATION: Calm and cooperative LABORATORY DATA: See below. IMAGING: CTA negative for PE, consistent with bilateral opacities, right greater than left MICROBIOLOGY: Please see below. ASSESSMENT: 75-year-old female with past medical history of hypertension and recent Covid is being admitted for hypoxemic respiratory failure. PLAN: 1. Hypoxemic respiratory failure. Has been requiring supplemental oxygen since Covid diagnosis 1 month ago, now requiring increased oxygen via nasal cannula. Currently on 4 L. Etiology unclear, no clinical signs of pneumonia at this time. CTA negative for PE, bilateral opacities, right greater than left. Questionable chronic findings associated with Covid pneumonia. Pro-calcitonin negative. Respiratory viral panel negative. Blood cultures pending. Received 1 dose of antibiotics in the emergency department, will hold off on further antibiotics at this time. Pulmonary consulted 2. Hypertension. Continue metoprolol, triamterene and hydrochlorothiazide 3. Hypomagnesemia. Supplemented IV DVT prophylaxis: Heparin subcutaneous GI prophylaxis: Not needed Vital Signs Vital Signs Date Time Temp Pulse Resp B/P (MAP) Pulse Ox O2 Delivery O2 Flow Rate FiO2 06/10/20 15:54 84 98 06/10/20 12:25 Nasal Cannula 5.0 06/10/20 12:25 06/10/20 10:56 97.6 24 Laboratory Data Labs 24H Laboratory Tests 2 06/10/20 11:45: Prothrombin Time 13.7, Prothromb Time International Ratio 1.03, Activated Partial Thromboplast Time 40.6H, Fibrinogen 641H, D-Dimer, Quantitative 2064.27H, Anion Gap 3L, Glomerular Filtration Rate 44.1, Estimated Mean Plasma Glucose 123H, Hemoglobin A1c 5.9, Lactic Acid Level 1.2, Calcium Level 9.9, Ma gnesium Level 1.5L, Ferritin 350H, Total Bilirubin 0.5, Aspartate Amino Transf (AST/SGOT) 20, Alanine Aminotransferase (ALT/SGPT) 7L, Alkaline Phosphatase 79, Lactate Dehydrogenase 234, Total Creatine Kinase 41, Creatine Kinase MB 1.0, Creatine Kinase MB Relative Index 2.44, Troponin I < 0.02, C-Reactive Protein, Quantitative 2.19H, Total Protein 8.1, Albumin 3.0L, Albumin/Globulin Ratio 0.6L, Thyroid Stimulating Hormone (TSH) 3.180, Free Thyroxine 1.16, Digoxin Level 0.1L 06/10/20 11:46: Immature Granulocyte % (Auto) 2.1, Neutrophils (%) (Auto) 70.2H, Lymphocytes (%) (Auto) 14.6L, Monocytes (%) (Auto) 10.5H, Eosinophils (%) (Auto) 1.8, Basophils (%) (Auto) 0.8, Neutrophils # (Auto) 6.7, Lymphocytes # (Auto) 1.4L, Monocytes # (Auto) 1.0H, Eosinophils # (Auto) 0.2, Basophils # (Auto) 0.1, Nucleated Red Blood Cells % (auto) 0.0, Procalcitonin <0.05 CBC/BMP Laboratory Tests 06/10/20 11:45 06/10/20 11:46 Microbiology Microbiology 06/10/20 Respiratory Virus Panel (PCR) ([place]) - Final, Complete 06/10/20 Blood Culture, Received Pending 06/10/20 Blood Culture, Received Pending Home Medications Scheduled Cetirizine HCl (Cetirizine HCl) 10 Mg Tablet, 10 MG PO QHS Fluticasone Propionate (Flonase Allergy Relief) 9.9 Ml [place].susp, 2 SPRAY NARES DAILY Metoprolol Succinate (Metoprolol Succinate) 25 Mg Tab.er.24h, 25 MG PO DAILY Triamterene/Hydrochlorothiazid (Triamterene-Hctz 37.5-25 mg Cp) 1 Each Capsule, 1 CAP PO DAILY Scheduled PRN Albuterol Sulf (Albuterol Sulfate) 2.5 Mg/3 Ml Vial.neb, 1 VIAL NEB Q4HP PRN for wheezing Albuterol Sulfate (Ventolin Hfa) 18 Gm Hfa.aer.ad, 2 PUFF INH Q4-6HP PRN for wheezing Allergies Coded Allergies: aspirin (Verified Adverse Reaction, Unknown, ulcers, 05/16/19) A-FIB/CHADSVASC A-FIB History Current/History of A-Fib/PAF?: No SANTIAGO NGO MD Jun 10, 2020 17:10
--- OUTSIDE RECORDS SUMMARY | 2020-06-10 17:11 | CCD ---
Author Author [facility] Organization [facility] Address Unknown Phone Unavailable Care Team Providers Care Blankbook Stitching Machine Operator Name Role Phone Gian Field MD Unavailable [...] Unavailable [employer] Unavailable Unavailable Pleskach, Lesli FRUIT BUYER Unavailable Unavailable Pleskach, Lesli FRUIT BUYER Unavailable Unavailable Pleskach, Lesli FRUIT BUYER Unavailable Unavailable Pleskach, Lesli FRUIT BUYER Unavailable Unavailable Pleskach, Lesli FRUIT BUYER Unavailable Unavailable Pleskach, Lesli FRUIT BUYER Unavailable Unavailable Pleskach, Lesli FRUIT BUYER Unavailable Unavailable Pleskach, Lesli FRUIT BUYER Unavailable Unavailable Pleskach, Lesli FRUIT BUYER Unavailable Unavailable Pleskach, Lesli FRUIT BUYER Unavailable Unavailable Pleskach, Lesli FRUIT BUYER Unavailable Unavailable Pleskach, Lesli FRUIT BUYER Unavailable Unavailable Pleskach, Lesli FRUIT BUYER Unavailable Unavailable Pleskach, Lesli FRUIT BUYER Unavailable Unavailable Pleskach, Lesli FRUIT BUYER Unavailable Unavailable Pleskach, Lesli FRUIT BUYER Unavailable Unavailable Pleskach, Lesli FRUIT BUYER Unavailable Unavailable Pleskach, Lesli FRUIT BUYER Unavailable Unavailable Pleskach, Lesli FRUIT BUYER Unavailable Unavailable Pleskach, Lesli FRUIT BUYER Unavailable Unavailable Pleskach, Lesli FRUIT BUYER Unavailable Unavailable Pleskach, Lesli FRUIT BUYER Unavailable Unavailable Pleskach, Lesli FRUIT BUYER Unavailable Unavailable Pleskach, Lesli FRUIT BUYER Unavailable Unavailable Pleskach, Lesli FRUIT BUYER Unavailable Unavailable Pleskach, Lesli FRUIT BUYER Unavailable Unavailable Pleskach, Lesli FRUIT BUYER Unavailable Unavailable Pleskach, Lesli FRUIT BUYER Unavailable Unavailable Pleskach, Lesli FRUIT BUYER Unavailable Unavailable Pleskach, Lesli FRUIT BUYER Unavailable Unavailable LEES, PILAR MD Unavailable Unavailable [...] is protected by Article 27-F of the [facility] Public Health law. If you continue you may have access to information: Regarding HIV / AIDS; Provided by facilities licensed or operated by the [facility] Office of Mental Health; or Provided by the [place] Office for People With Developmental Disabilities. If such information is present, then the following [facility] mandated warning applies: This information has been [...] law may result in a fine or correction sentence or both. A general authorization for the release of medical or other information is NOT sufficient authorization for further disc losure. Encounters Encounter Providers Location Date Indications Data Source(s ) Outpatient Attender: Lesli Jean [facility] Main Office 05/20/2020 1 0:45:00 AM EST [facility] ([facility] Outpatient Attender: Lesli Jean [facility] Main Office 05/12/2020 0 2:45:00 PM EST [facility] ([facility] Outpatient Attender: Lesli Jean [facility] Main Office 05/02/2020 1 1:00:00 AM EST [facility] ([facility] OFFICE OUTPATIENT NEW 30 MINUTES Attender: PILAR LEES MD Ph ysical Therapy 02/12/2020 02:45:00 PM EDT [facility] ([facility]) Outpatient Attender: Lesli Jean [facility] Main Office 12/18/2019 0 1:30:00 PM EDT [facility] ([facility] Outpatient Attender: Lesli Jean [facility] Main Office 12/12/2019 0 4:00:00 PM EDT [facility] ([facility] Outpatient Referrer: Gian MENJIVAR.ROSY 08/2019 12:00:00 AM EDT - 11/28/2019 11:05:[address] [facility] Outpatient Attender: Gian BURDENROSY 10/23 12:00:00 AM EDT - 11/07/2019 09:58:[address] [facility] Outpatient Attender: Lesli Jean [facility] Main Office 08/28/2019 1 0:30:00 AM EDT [facility] ([facility] Outpatient Referrer: Gian MARIAROSY-SJP.ROSY 09/2019 12:00:00 AM EDT - 07/30/2019 10:23:[address] [facility] Outpatient Attender: Gian VALERIOSJDilshad.ROSY 06/23 12:00:00 AM EDT - 07/04/2019 09:33:[address] [facility] Outpatient Attender: Lesli Jean [facility] Main Office 05/30/2019 1 2:30:00 PM [...] type / Coverage type Policy ID Covered alliance party ID Covered alliance party's relationship to benson Policy [place] Plan Information MEDICARE [id number] SP [id number] MEDICARE [id number] Pretty [id number] X63 MEDICARE C [id number] S [id number] X63 MEDICARE [id number] SP [id number] Problems, Conditions, and Diagnoses Code Display Name Description Problem Type Effective Dates Data Source(s) 170499455 Gastroesophageal reflux disease Gastroesophageal reflux disease Problem 05/20/2020 12:00:00 AM EST [facility] ([facility] [id number] Essential hypertension Essential hypertension Problem 05/20/2020 12:00:00 AM EST [facility] ([facility] R06.09 Other forms of dyspnea Other forms of dyspnea Diagnosi s 11/28/2019 07:21:[address] [facility] R07.89 Other chest pain Other chest pain Diagnosis 11/28/2019 07 :21:[address] [facility] Surgeries/Procedures Procedure Description Date Indications Data Source(s) RADEX FOOT COMPLETE MINIMUM 3 VIEWS 02/12/2020 12:00:0 0 AM EDT [facility] ([facility]) Results ID Date Data Source [id number] 05/02/2020 12:59:00 PM EST [facility] Name Value Range Interpretation Code Description Data Alondra rce(s) Supporting Document(s) Respiratory pathogens identified [Type] in Nasopharynx by Probe and target amplification method SARS-CoV-2 (COVID 19) [facility] This lab was ordered by [facility] a nd reported by [facility]. ID Date Data Source [id number] 06/05/2019 08:17:00 AM EST [facility] ([facility] Name Value Range Interpretation Code Description Data Alondra rce(s) Supporting Document(s) Estimated Average Glucose 134 mg/dL 60-110 [facility] ([facility] Hemoglobin A1c 6.3 % [facility] ([facility] REFERENCE RANGES: 4.5-5.6% NORMAL 5.7-6.4% SUGGESTS IMPAIRED GLUCOSE META BOLISM >= 6.5% ABNORMAL ID Date Data Source [id number] 06/05/2019 08:17:00 AM EST [facility] ([facility] Name Value Range Interpretation Code Description Data Alondra rce(s) Supporting Document(s) Calcitriol [Mass/volume] in Serum or Plasma 37.9 pg/mL 19.9-79.3 [facility] ([facility] Performed at: [address] [id number] Technology Intern: Evelia De Jesus MD, Phone: [phone] ID Date Data Source [id number] 06/05/2019 08:17:00 AM EST [facility] ([facility] [...] [Ratio] 37.2 kg/m2 37.2 k g/m2 [facility] ([facility] Body weight 200.38 [lb_av] 200.38 [lb_av] [facility] ([facility] Body height 61.5 [in_i] 61.5 [in_i] [facility] ([facility] 5'1.50" Body temperature 96.4 [degF] 96.4 [degF] [facility] ([facility] Body mass index (BMI) [Ratio] 37.4 kg/m2 37.4 k g/m2 [facility] ([facility] [place] body weight 110 [lb_av] 110 [lb_av] [facility] [...] k g/m2 [facility] [place] body weight 110 [lb_av] 110 [lb_av] [facility] ([facility] Oxygen saturation in Arterial blood by Pulse oximetry 98 % 98 % [facility] Body weight 204.50 [lb_av] 204.50 [lb_av] [facility] ([facility] Body height 62.0 [in_i] [...]
--- NOTE | 2020-06-10 19:44 | ECGEPIP ---
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
[2020-06-10 19:55] VITALS: BP 128/84
[2020-06-10 20:09] VITALS: O2SAT 86
[2020-06-10] MEDS ORDERED: predniSONE 20 MG TAB PO ONE (20:45)
[2020-06-10 20:54] VITALS: O2SAT 92
[2020-06-10] MEDS: HEPARIN SOD (PORCINE) 5000UNITS/ML 1ML VIAL/SYRINGE SC SCH (21:00)
[2020-06-10] MEDS: MAG SULF 1GM/100ML (MAG RUN) 1 GM in IV 1 EA IV SCH ×2 (21:02→21:14)
[2020-06-10 21:10] VITALS: O2SAT 94
--- NOTE | 2020-06-10 21:50 | CR ---
CONSULTATION DATE: 06/10/2020 REASON FOR CONSULTATION: Hypoxia, abnormal chest CT. REQUESTING PROVIDER: Praful Correa M.D. HISTORY OF PRESENT ILLNESS: Ms. Izquierdo is a very pleasant 75-year-old female who presents to the hospital with increased shortness of breath. She was hospitalized in early April with COVID. She states she did fairly well and was sent home on oxygen. It was not until that past Tuesday, she noticed a new onset of shortness of breath. Due to that symptomatology, CT angiogram was performed in the emergency room showing no evidence of pulmonary embolism. 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 The patient was more hypoxic than she was at home now on 5 liters and I was consulted. Dr. Correa correctly identified the patient's procalcitonin is low and white count remained within normal limits, although above her usual white count of 6. He has not prescribed antibiotics as he is rightfully concerned that this may not be infectious. The patient herself says she has an intermittent cough. She does not feel as sick as she did when she had COVID. She does not feel that she has a respiratory infection. She has had no fevers or chills. She denies any night sweats. Her cough is intermittent, nonproductive. She states she had one episode where she had a little bit of bloody mucous, but this was right after she had a nosebleed. She has had no chest discomfort, no chest pain, and no pleurisy. She has no orthopnea, no PND, no lower extremity edema, and no calf pain. She states she saw a online media buyer recently and was told that her heart was "good." She has no prior history of lupus or inflammatory diseases. When I asked about arthritis, she states she carries a diagnosis of osteoarthritis. She has had migratory myalgias and arthralgias. She states just over a month ago just prior to COVID, she was having inflamed joints; first her right ankle and then that improved and then, her left ankle. She states it was almost like her whole foot swelled at the time. She has had no elbow effusions. No change in vision. No symptoms of uveitis. No rashes. She has no family history of connective tissue disease. She also denies any prior history of lung disease. She does not recall any episodes of aspiration. No vomiting. She denies any change in her usual bowel habits. PAST MEDICAL HISTORY: 1. Hypertension. 2. Pneumonia for which she was hospitalized in April of last year; however, it was felt according to that H&P, on my review, that it was more consistent with congestive heart failure, and she had a pleural effusion at that point in time. It does not appear that the pleural effusion was tapped. 3. Obesity. 4. Large hiatal hernia status post attempted repair. FAMILY HISTORY: She states her father had lung disease and her mother had diabetes. She states her father was a smoker. She denies any history of pulmonary fibrosis in her family or connective tissue disorders. SOCIAL HISTORY: The patient is a lifetime nonsmoker. She denies any illicit drug use. She has approximately two to three glasses of wine a month. She lives with her son and [id number] as she is . She lives in [place] and has had no recent travel. CURRENT MEDICATIONS: 1. Proventil. 2. Flonase. 3. Toprol XL 25 mg p.o. daily. 4. Dyazide. 5. Triamterene/hydrochlorothiazide one tab p.o. daily. 6. Heparin 5000 units subcutaneous q. 12 hours. ALLERGIES: She states she is allergic to ASPIRIN. REVIEW OF SYSTEMS: Constitutional: No fever, chills, night sweats. No weight loss. HEENT: No change in vision. One episode of epistaxis. No recurrent sinusitis. No dental abscess. Patient does have occasional difficulty swallowing items such as meat. No difficulty swallowing liquids. No change in her voice. She has had no neck pain. Cardiac: No anginal symptoms. No orthopnea, PND, or lower extremity edema. No symptoms of claudication. Pulmonary: As per HPI. No history of tuberculosis or tuberculosis contacts. GI: As mentioned in HPI, no blood in stool and no change in bowel habits. No nausea, vomiting, or diarrhea. : No burning or pain with urination. Does have some urinary incontinence. Neuro: No history of stroke, seizure, or tremor. No difficulty with ambulation. Integumentary: No recent rashes or pruritus. Psych: No depression, anxiety or suicidal. Sleep: No history of diagnosed obstructive sleep apnea. The patient has been told that she snores. Denies witnessed apneas, morning headaches, or excessive daytime somnolence. Endocrine: Denies history of diabetes or hypothyroidism. Denies hot or cold intolerance. PHYSICAL EXAMINATION: VITAL SIGNS: Temperature is 97.6, pulse is 83, respiratory rate 24, blood pressure 124/90 with a MAP of 101. Oxygen saturation is 94% on 5 liters. GENERAL: Awake, alert, and oriented. Affect and mood are appropriate. Nutrition and hygiene are good. HEENT: Sclerae clear and anicteric. Pupils equal and reactive to light. Mucous membranes are moist without lesions. Tongue is midline. Oropharynx is crowded; Mallampati 4. NECK: Supple. No tracheal deviation. Large circumference. LYMPH: No cervical, supraclavicular, or axillary adenopathy. CARDIAC: Regular S1, S2 without audible murmur, rub, or gallop. No elevated JVP. PMI is difficult to palpate. PULMONARY: Diffuse inspiratory rales bilaterally. There is increased thoracic kyphosis. Poor chest expansion. No prolongation of expiratory phase. No expiratory wheeze. ABDOMEN: Obese, soft, nontender, and nondistended. No discernable hepatosplenomegaly or masses. EXTREMITIES: No cyanosis, clubbing, or edema. SKIN: No rash, jaundice, or bruising. Skin is otherwise pale. MUSCULOSKELETAL: NO evidence of joint effusion, lesion, or recent trauma. LABORATORY DATA: Evaluation shows a white count of 9.5 up from her last white count of 6.4, hemoglobin 11.9, platelet count of 496,000, neutrophils of 70. Sodium 135, potassium 4.5, chloride 96, bicarb 36, BUN 16, creatinine 1.26. Lactate is 1.2. Magnesium is 1.5. Ferritin is 350 with a CRP of 2.19 and albumin of 3.0. IMAGING DATA: Chest CT, as mentioned above, shows a dilated esophagus, very large hiatal hernia, some cardiomegaly with basilar fibrosis, and right-sided infiltrate. IMPRESSION/PLAN: 1. Hypoxia with wide differential. I agree with Dr. Correa that this does not seem as if she has an active infection despite new infiltrate. This can be inflammatory in nature or be a residual from COVID. This could also be secondary to an acute exacerbation of rheumatologic disease. I have ordered a rheumatologic screen. She does have some symptoms of rheumatoid arthritis and has some fibrotic change at the bases, which may be marketing sales representative of rheumatoid disease. It is also interesting she had a pleural effusion last year and this was not tapped. She had significant pleuritic symptoms at that time. This may or may not be related. In the meantime, I have added steroids to her regimen. I would doubt she would be able to tolerate a lung biopsy given the restriction from her body habitus. This could also be residual inflammatory disease from COVID. Would continue to monitor for signs and symptoms of recurrent infection. I suspect she does have recurrent aspiration, based on the appearance of her dilated proximal esophagus and very large hiatal hernia. At this point in time, she has no fevers or other signs or symptoms of infection, but we will continue to monitor and have a low threshold for initiating antibiotics. 2. Metabolic alkalosis based on blood work. Will obtain arterial blood gas to see if this is compensatory or a primary metabolic alkalosis. Thank you for this interesting consult. Overall appears to be inflammatory rather than infectious, but we will continue to monitor. KARISSAD
[2020-06-10 21:52] LABS: CK-MB VALUE MASS 2.1 NG/ML (<3.6); CPK CREATINE PHOSPHOKINASE 56 U/L (26-192); MB/CK RELATIVE INDEX 3.75 (< OR =4); TROPONIN I < 0.02 NG/ML (< 0.10)
[2020-06-10 21:58] VITALS: O2SAT 66; O2SAT 89
[2020-06-11 00:08] VITALS: O2SAT 91
[2020-06-11 04:00] VITALS: O2SAT 91
[2020-06-11 06:00] VITALS: BP_SYST 120; BP_SYST 122; BP_DIAS 81; BP_DIAS 88
[2020-06-11 06:46] LABS: HEMATOCRIT 36.3 % (36.0-47.0); MEAN CORPUSCULAR HEMOGLOBIN 30.2 pg (27.0-33.0); MEAN CORPUSCULAR HGB CONC 30.3 g/dl (32.0-36.5); MEAN CORPUSCULAR VOLUME 99.7 fl (80.0-96.0); PLATELET COUNT, AUTOMATED 463 10^3/uL (150-450); RED BLOOD COUNT 3.64 10^6/uL (4.00-5.40); WHITE BLOOD COUNT 5.8 10^3/uL (4.0-10.0)
[2020-06-11 07:16] LABS: ALBUMIN 2.7 GM/DL (3.2-5.2); ALT/SGPT 7 U/L (12-78); BILIRUBIN,TOTAL 0.3 MG/DL (0.2-1.0); BLOOD UREA NITROGEN 16 MG/DL (7-18); CALCIUM LEVEL 9.3 MG/DL (8.8-10.2); CARBON DIOXIDE LEVEL 36 MEQ/L (21-32); CHLORIDE LEVEL 95 MEQ/L (98-107); CREATININE FOR GFR 1.25 MG/DL (0.55-1.30); GLOMERULAR FILTRATION RATE 44.5 (>39); GLUCOSE, FASTING 126 MG/DL (70-100); MAGNESIUM LEVEL 2.2 MG/DL (1.8-2.4); POTASSIUM SERUM 5.5 MEQ/L (3.5-5.1); RHEUMATOID FACTOR QUANT < 10.0 IU/ML (<15.0); SODIUM LEVEL 134 MEQ/L (136-145); TOTAL PROTEIN 7.1 GM/DL (6.4-8.2)
[2020-06-11] MEDS: FLUTICASONE PROP 0.05% NASAL SPRAY 16 GM (FLONASE) NARES SCH (08:18)
[2020-06-11] MEDS: predniSONE 20 MG TAB PO SCH (08:19)
[2020-06-11] MEDS: HEPARIN SOD (PORCINE) 5000UNITS/ML 1ML VIAL/SYRINGE SC SCH ×2 (08:19→22:20)
[2020-06-11 08:40] LABS: ABG BASE EXCESS 9.7 (-2.0-2.0); ABG O2 SATURATION 88.1 % (95.0-99.0); ABG PARTIAL PRESSURE O2 52.8 mmHg (75.0-100.0); ABG STANDARD HCO3 33.2 MEQ/L (22.0-26.0); ABG TOTAL CO2 40.2 MEQ/L (23.0-31.0); ABG pH (ARTERIAL) 7.343 UNITS (7.350-7.450)
[2020-06-11 08:41] LABS: ABG PARTIAL PRESSURE CO2 71.5 mmHg (35.0-45.0)
[2020-06-11] MEDS: DYAZIDE 37.5/25 CAP (TRIAM/HCTZ) PO SCH (08:49)
[2020-06-11] MEDS: METOPROLOL SUCC *XL* 25MG TAB (TopROL *XL*) PO SCH (08:49)
[2020-06-11 12:00] VITALS: BP 133/78
[2020-06-11 15:10] LABS: CALCIUM LEVEL 9.9 MG/DL (8.8-10.2); CREATININE FOR GFR 1.4 MG/DL (0.55-1.30); POTASSIUM SERUM 5.2 MEQ/L (3.5-5.1)
--- NOTE | 2020-06-11 16:22 | IPNPDOC ---
Date Seen The patient was seen on 06/11/20. Progress Note SUBJECTIVE: Patient lying comfortably in bed, without any new complaints at this time. Patient continues to have mild dyspnea, unchanged. Patient overall feels unchanged compare to yesterday. PHYSICAL EXAMINATION: VITAL SIGNS: Please see below. GENERAL: No distress HEENT: Normocephalic, atraumatic, moist mucous membranes NECK: Supple CARDIOVASCULAR EXAMINATION: S1, S2, no murmurs RESPIRATORY EXAMINATION: Scattered rhonchi, left greater than right ABDOMINAL EXAMINATION: Soft, nontender, nondistended, positive bowel sounds EXTREMITIES: Range of motion intact SKIN: No rash NEUROLOGICAL EXAMINATION: Alert and oriented 3, no focal deficits PSYCHIATRIC EXAMINATION: Calm and cooperative LABORATORY DATA, IMAGING STUDIES, MICROBIOLOGY: Please see below. PLAN: 1. Hypoxemic respiratory failure. Worsening hypoxemia, dyspnea and CAT scan findings CTA negative for PE Low suspicion for active infectious process, inflammatory etiology is more likely. Serological workup pending. Possible chronic silent aspiration Pro-calcitonin negative. Respiratory viral panel negative. Blood cultures pending. Pulmonary recommendations appreciated, started on high-dose oral steroids. ABG noted, has chronic CO2 retention, likely due to restrictive lung disease from kyphosis/obesity/large hiatal hernia. Compensated at this time, will monitor. 2. Hypertension. Continue metoprolol, triamterene and hydrochlorothiazide DVT prophylaxis: Heparin subcutaneous GI prophylaxis: Not needed VS, I&O, 24H, [facility] Vital Signs/I&O Vital Signs Date Time Temp Pulse Resp B/P (MAP) Pulse Ox O2 Delivery O2 Flow Rate FiO2 06/11/20 12:00 98.1 83 20 133/78 (96) 92 Nasal Cannula 6.0 06/10/20 19:55 92 I&O- Last 24 Hours up to 6 AM 06/11/20 06:00 Intake Total 1065 ml Output Total 1000 ml Balance 65 ml Laboratory Data 24H LABS Laboratory Tests 2 06/10/20 21:08: Magnesium Level 1.9, Total Creatine Kinase 56, Creatine Kinase MB 2.1, Creatine Kinase MB Relative Index 3.75, Troponin I < 0.02 06/11/20 05:36: Magnesium Level 2.2, Nucleated Red Blood Cells % (auto) 0.0, Anion Gap 3L, Glomerular Filtration Rate 44.5, Calcium Level 9.3, Total Bilirubin 0.3, Aspartate Amino Transf (AST/SGOT) 19, Alanine Aminotransferase (ALT/SGPT) 7L, Alkaline Phosphatase 71, Total Protein 7.1, Albumin 2.7L, Albumin/Globulin Ratio 0.6L, Rheumatoid Factor < 10.0 06/11/20 08:30: Blood Gas Bicarbonate Standard 33.2H, Arterial Blood pH 7.343L, Arterial Blood Partial Pressure CO2 71.5*H, Arterial Blood Partial Pressure O2 52.8L, Arterial Blood Total CO2 40.2H, Arterial Blood HCO3 38.0H, Arterial Blood Base Excess 9.7H, Arterial Blood Oxygen Saturation 88.1L 06/11/20 13:51: Anion Gap 5L, Glomerular Filtration Rate 39.0, Calcium Level 9.9 CBC/BMP Laboratory Tests 06/11/20 05:36 06/11/20 13:51 Microbiology Microbiology 06/10/20 Respiratory Virus Panel (PCR) ([place]) - Final, Complete 06/10/20 Blood Culture - Preliminary, Resulted No growth after 24 hours . All specim... 06/10/20 Blood Culture - Preliminary, Resulted No growth after 24 hours . All specim... SANTIAGO NGO MD Jun 11, 2020 16:21
[2020-06-11 21:09] LABS: APPEARANCE, URINE CLEAR (CLEAR); BACTERIA, URINE AUTO NEGATIVE (NEGATIVE); BILIRUBIN, URINE AUTO NEGATIVE (NEGATIVE); BLOOD, URINE BLOOD NEGATIVE (NEGATIVE); COLOR, URINE YELLOW (YELLOW); GLUCOSE, URINE (UA) AUTO NEGATIVE (NEGATIVE); KETONE, URINE AUTO NEGATIVE (NEGATIVE); LEUKOCYTE ESTERASE, URINE AUTO NEGATIVE (NEGATIVE); NITRITE, URINE AUTO NEGATIVE (NEGATIVE); PROTEIN, URINE AUTO NEGATIVE (NEGATIVE); RBC, URINE AUTO 0 /HPF (0-3); SPECIFIC GRAVITY URINE AUTO 1.008 (1.002-1.035); SQUAMOUS EPITHELIAL CELL UR AU 2 /HPF (0-6); UROBILINOGEN, URINE AUTO 0.2 mg/dL (0.0-2.0); WBC, URINE AUTO 0 /HPF (0-3)
[2020-06-11 21:39] LABS: SODIUM,RANDOM URINE 26 MEQ/L
[2020-06-11 22:00] VITALS: BP 121/81
[2020-06-12 06:00] VITALS: BP 100/61
[2020-06-12 06:16] LABS: HEMATOCRIT 35.5 % (36.0-47.0); MEAN CORPUSCULAR HEMOGLOBIN 30.7 pg (27.0-33.0); MEAN CORPUSCULAR VOLUME 99.2 fl (80.0-96.0); PLATELET COUNT, AUTOMATED 475 10^3/uL (150-450); RED BLOOD COUNT 3.58 10^6/uL (4.00-5.40); WHITE BLOOD COUNT 9.4 10^3/uL (4.0-10.0)
[2020-06-12 06:39] LABS: CALCIUM LEVEL 9.5 MG/DL (8.8-10.2); CREATININE FOR GFR 1.29 MG/DL (0.55-1.30); GLOMERULAR FILTRATION RATE 42.9 (>39); PHOSPHORUS LEVEL 3.4 MG/DL (2.5-4.9); POTASSIUM SERUM 4.4 MEQ/L (3.5-5.1)
[2020-06-12] MEDS ORDERED: FLUBLOK(EGG FREE)(QUAD)INFLUENZA VACC 0.5ML SYRINGE 18YRS & OLDER IM ONE (09:00)
[2020-06-12] MEDS ORDERED: PREVNAR 13 VACCINE SYRINGE IM ONE (09:00)
[2020-06-12] MEDS: DYAZIDE 37.5/25 CAP (TRIAM/HCTZ) PO SCH (09:08)
[2020-06-12] MEDS: predniSONE 20 MG TAB PO SCH (09:08)
[2020-06-12] MEDS: HEPARIN SOD (PORCINE) 5000UNITS/ML 1ML VIAL/SYRINGE SC SCH ×2 (09:08→21:17)
[2020-06-12] MEDS: FLUTICASONE PROP 0.05% NASAL SPRAY 16 GM (FLONASE) NARES SCH (09:19)
[2020-06-12] MEDS: METOPROLOL SUCC *XL* 25MG TAB (TopROL *XL*) PO SCH (09:54)
--- NOTE | 2020-06-12 13:38 | IPN ---
PROGRESS NOTE DATE: 06/12/2020 SUBJECTIVE: Overnight the patient states this is the first day she has felt better. Her shortness of breath has decreased but still remains. With ambulation she does desaturate pretty quickly but recovers fairly quickly. She has had a cough, today she had some clear mucous, no hemoptysis. No chest discomfort. She denies any fever or chills. She states she is eating well. PHYSICAL EXAMINATION: VITAL SIGNS: Temperature is 97.2, pulse is 86, respiratory rate is 19, blood pressure is 100/61. MAP of 74. Oxygen saturation was 97% on 3.0 liters. GENERAL: Awake, alert and oriented. Affect and mood are appropriate. She appears less dyspneic with conversation. HEENT: Sclera are clear. Nonicteric. Pupils equal and reactive to light. Mucous membranes are moist without lesions. Tongue is midline. Oropharynx is crowded without erythema or exudate. Mallampati 4 airway. NECK: Supple. No tracheal deviation. LYMPH: No cervical, supraclavicular or axillary adenopathy. CARDIAC: Distant S1 without audible murmur, rub or gallop. No elevated JVP. No peripheral edema. PULMONARY: Bilateral rales two-thirds of the lower lung base. No dullness to percussion. No rhonchi or wheeze. ABDOMEN: Obese, soft, nontender and nondistended. No hepatosplenomegaly or hernia. EXTREMITIES: No lower extremity edema. No cyanosis or clubbing. SKIN: Pale without rash, jaundice, or bruising. LABORATORY DATA: White blood cell count 9.4, hemoglobin 11.0, hematocrit 35.5, platelet count 475,000. Chemistries: Sodium is 137, potassium is 4.4, bicarbonate is 37, BUN 25, creatinine of 1.29. No new arterial blood gas. IMPRESSION: 1. Hypoxia status post COVID pneumonia with concern for underlying inflammatory interstitial lung disease on steroids. Laboratory evaluation is still pending. Rheumatoid factor is unremarkable but anti-CCP, JITENDRA, DES, scleroderma and anti-double stranded DNA are all pending. I have added an anti-[employer] as this has not been performed. 2. Chronic hypoventilation, suspect underlying obesity hypoventilation with restrictive impairment from large hiatal hernia and thoracic kyphosis. Will need sleep study as an outpatient. Patient plans on following up with our office to do so. Will continue to follow. Thank you for this consultation.
[2020-06-12 14:00] VITALS: BP 113/76
[2020-06-12 22:00] VITALS: BP 124/67
[2020-06-13 06:00] VITALS: BP 117/66
[2020-06-13 08:54] VITALS: BP 121/81
[2020-06-13] MEDS: METOPROLOL SUCC *XL* 25MG TAB (TopROL *XL*) PO SCH (08:54)
[2020-06-13] MEDS: predniSONE 20 MG TAB PO SCH (08:54)
[2020-06-13] MEDS: HEPARIN SOD (PORCINE) 5000UNITS/ML 1ML VIAL/SYRINGE SC SCH (08:54)
[2020-06-13] MEDS: DYAZIDE 37.5/25 CAP (TRIAM/HCTZ) PO SCH (08:54)
[2020-06-13] MEDS: FLUTICASONE PROP 0.05% NASAL SPRAY 16 GM (FLONASE) NARES SCH (08:54)
--- NOTE | 2020-06-13 12:08 | IPN ---
PULMONARY PROGRESS NOTE DATE: 06/11/2020 Dr. Abhishek Cadet Resident Physician dictating for Attending Physician Dr. Hugo Duavll. SUBJECTIVE: Inge was seen and examined this morning by the pulmonology service at the bedside. Per report from nursing, she desaturates to the 70s and becomes tachypneic when ambulating to and from the bathroom. It takes approximately 2 minutes to have saturations return back to the low to mid 90s. Other than with ambulation, she has stayed at 6 liters of supplemental oxygen throughout the overnight and this morning. She is eating and drinking without any issues and is having bowel movements. While she reports some increased work of breathing, this has been relatively consistent over the past few days. She also reports a non-productive cough. She denies any current or overnight fever, chills or night sweats. She denies any chest pain, chest pressure or palpitations as well either currently or overnight. She denies any significant pain this morning upon exam. OBJECTIVE: Vital signs: Temperature 98, heart rate 81, respiratory rate 22, blood pressure 120/81, saturating at 93% while receiving 6 liters of nasal cannula supplemental oxygen. General: Very pleasant, elderly , obese female lying upright in bed. Does not appear to be in any acute distress. Alert and oriented times 3 on supplemental nasal cannula oxygen HEENT: Normocephalic, atraumatic. Non-injected, anicteric sclerae, mild conjunctiva pallor, pupils are equal, round and reactive to light and accommodation. Nasal cannula in place. Mucous membranes appear more moist today than yesterday. There is no pharyngeal erythema or exudate. Neck: Supple, wide and thick. No cervical or supraclavicular lymphadenopathy is appreciated. Difficult to assess for JVD due to habitus and neck thickness. Cardiovascular: Regular rate, regular rhythm, normal S1 and S2. The S1 is prominent. No murmurs or rubs are appreciated. 2+ radial pulses palpated b/l. Respiratory: As stated, she is on supplemental oxygen via nasal cannula. No accessory muscle use is seen. Symmetric chest expansion. There are diffuse rales bilaterally on the posterior aspect of each lung from approximately the mid lung moving inferiorly all the way down to the bases. It seems as though the rales begin a bit more superior on the right side versus the left, and are prominent with both inspiration and expiration. There is decreased tidal volume. She is speaking full sentences. Gastrointestinal: Soft, obese, nontender and nondistended. There are hypoactive bowel sounds throughout. No rigidity is appreciated. Extremities: There is bilateral lower extremity swelling, but no pitting edema is appreciated. No signs of clubbing or cyanosis. There is some slight arthritic visual changes seen at bilateral DIP joints as well as some chronic thickening of MCP joints second and third bilaterally. Two plus radial pulses bilaterally. Neurologic: Patient is awake, alert and oriented times 3. No focal deficits are appreciated. Non-dysarthric speech. Responding appropriately to all questions and commands. LABORATORY DATA: WBC 5.8, hemoglobin 11, MCV 99.7, platelet count 463,000. Sodium 134, potassium 5.5, chloride 95, bicarb 36, BUN 16, creatinine 1.25 with a calculated GFR of 44.5% and serum glucose is 126. serum calcium is 9.3. Serum magnesium this morning is 2.2. AST 19, ALT 7, total protein 7.1, albumin 2.7. PTT 40.6, fibrinogen 641, D-dimer 2064. ABG done this morning showed results of pH 7.34, PCO2 71.5, PO2 52.8 and again note this was done on supplemental oxygen of 6 liters. At this point, multiple rheumatological lab values have been ordered and the only one to result is a negative rheumatoid factor (RF). IMAGING: No new imaging today on the . She had both a CTA and chest x-ray yesterday (June 10), with findings dictated in yesterday's Pulmonary Consultation Note from Dr. Duvall. IMPRESSION AND PLAN: 1. Acute on chronic hypoxic respiratory failure: This is likely inflammatory in nature. At this point, it is unclear if this is from COVID sequelae (dx last month) and/or interstitial lung disease. An infection cannot be ruled out, but patient continues to show no signs of infection at this time - - she continues to be afebrile and denies any subjective fevers, chills, night sweats. In addition, her cough is a dry one. On labs, she has a normal white count, and has actually decreased today from yesterday. She has multiple inflammatory lab markers that are elevated, pointing towards an inflammatory process (platelets, D-dimer, fibrinogen). At this stage, we will continue to monitor the patient for any signs of infection as she is continuing to receive steroids. We anticipate monitoring for infection for at least a few more days. Should no signs of infection ultimately arise, we'll likely discharge the patient with home oxygen. Plan will then be to follow up as an outpatient for polysomnography to appropriately address her hypoventilation. As far as the inflammatory component to her condition, there is clinical suspicion for a potential underlying rheumatological cause manifesting as respiratory fibrosis seen on imaging. To this point, the only resulting lab from a rheumatological standpoint was a negative RF. She did recently have COVID pneumonia last month and sometimes viral conditions can exacerbate underlying rheumatological conditions. 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 2. Chronic hypercarbic respiratory failure most likely secondary to a restrictive process from structural abnormalities in the form of a significant hiatal hernia, thoracic kyphosis, and cardiomegaly. On yesterday's chest CT, there was evidence of decreased lung volume, likely because of the aforementioned structural abnormalities. In addition, an ABG this morning showed significant CO2 retention, but this appears to be compensated as her pH was only mildly acidotic - - this would seem to point to the patient being hypoventilatory at baseline, in addition to the structural abnormalities mentioned before. Patient is also obese and that is likely factoring in as well. Upon discharge, we anticipate patient following up as an outpatient with the pulmonary service to undergo polysomnography in order to get home positive pressure device. 3. Thrombocytosis: While still elevated, platelet count actually is actually decreased from yesterday. This most likely represents an acute phase reaction to the presumed inflammatory process. BABS
[2020-06-13] MEDS ORDERED: PRED10TA2 PO (12:29)
[2020-06-13] MEDS ORDERED: AUGM500T34 PO (12:31)
--- NOTE | 2020-06-13 12:40 | DS.PDOC ---
Discharge Summary General Date of Admission Jun 10, 2020 at 16:48 Date of Discharge 06/13/2020 Attending Physician: SANTIAGO NGO MD Discharge Summary PROCEDURES PERFORMED DURING STAY: None. ADMITTING DIAGNOSES: 1. Hypoxemic respiratory failure, pulmonary fibrosis. DISCHARGE DIAGNOSES: 1. Hypoxemic respiratory failure, pulmonary fibrosis. COMPLICATIONS/CHIEF COMPLAINT: Respiratory Failure With Hypoxia. HISTORY OF PRESENT ILLNESS: 75-year-old female with past medical history of hypertension and cold. It was admitted for hypoxemic respiratory failure. Based on her CAT scan findings, it appears that she has chronic fibrosis of her lungs. Etiology remains unclear, although there are multiple possibilities including chronic aspiration from large hiatal hernia dating to fibrosis. Patient was evaluated by pulmonary who recommended oral steroids, patient with significant improvement after 48 hours. She is currently back to her baseline state of health and oxygen requirements. She has been evaluated and cleared for discharge by physical therapy. She reports a mild cough with scant amount of hemoptysis and will be discharged on oral antibiotics to cover for possible infection as per pulmonary's recommendations. Patient will be discharged on Augmentin for 7 days along with a slow steroid taper. Patient is to follow-up with Dr. Duvall within 1-2 weeks of discharge and her PCP. Patient understands and agrees with this plan at this time. HOSPITAL COURSE: As above. DISCHARGE MEDICATIONS: Please see below. ALLERGIES: Please see below. PHYSICAL EXAMINATION: VITAL SIGNS: Please see below. GENERAL: No distress HEENT: Normocephalic, atraumatic, moist mucous membranes NECK: Supple CARDIOVASCULAR EXAMINATION: S1, S2, no murmurs RESPIRATORY EXAMINATION: Bilateral rhonchi, right greater than left, no wheezing ABDOMINAL EXAMINATION: Soft, nontender, nondistended, positive bowel sounds EXTREMITIES: Range of motion intact SKIN: No rash NEUROLOGICAL EXAMINATION: Alert and oriented 3, no focal deficits PSYCHIATRIC EXAMINATION: Calm and cooperative LABORATORY DATA: Please see below. IMAGING: CT chest with bilateral pulmonary fibrosis, right greater than left, more prominent in the bases PROGNOSIS: Guarded ACTIVITY: As tolerated. DIET: Cardiac DISCHARGE PLAN: Follow-up with pulmonary and PCP in 1-2 weeks DISPOSITION: Home with services. DISCHARGE INSTRUCTIONS: 1. As above DISCHARGE CONDITION: Stable. TIME SPENT ON DISCHARGE: Greater than 20 minutes. Vital Signs/I&Os Vital Signs Date Time Temp Pulse Resp B/P (MAP) Pulse Ox O2 Delivery O2 Flow Rate FiO2 06/13/20 09:00 3.0 06/13/20 08:54 78 121/81 06/13/20 06:00 97.6 19 92 Nasal Cannula 06/10/20 19:55 92 I&O- Last 24 Hours up to 6 AM 06/13/20 06:00 Intake Total 1420 ml Output Total 2475 ml Balance -1055 ml Microbiology Microbiology 06/10/20 Respiratory Virus Panel (PCR) ([facility]) - Final, Complete 06/10/20 Blood Culture - Preliminary, Resulted No Growth after 48 hours. All Specime... 06/10/20 Blood Culture - Preliminary, Resulted No Growth after 72 hours. All specime... Discharge Medications Scheduled Amoxicillin/Potassium Clav (Augmentin 500-125 Tablet) 1 Each Tablet, 1 TAB PO BID Cetirizine HCl (Cetirizine HCl) 10 Mg Tablet, 10 MG PO QHS, (Reported) Fluticasone Propionate (Flonase Allergy Relief) 9.9 Ml [place].susp, 2 SPRAY NARES DAILY, (Reported) Metoprolol Succinate (Metoprolol Succinate) 25 Mg Tab.er.24h, 25 MG PO DAILY, (Reported) Prednisone (Prednisone) 10 Mg Tablet, 1 TAB PO ASDIRECTED Take 4 tabs daily x4 days then 3 tabs daily x4 days then 2 tabs daily x4 days then 1 tab daily x4 days. Triamterene/Hydrochlorothiazid (Triamterene-Hctz 37.5-25 mg Cp) 1 Each Capsule, 1 CAP PO DAILY, (Reported) Scheduled PRN Albuterol Sulf (Albuterol Sulfate) 2.5 Mg/3 Ml Vial.neb, 1 VIAL NEB Q4HP PRN for wheezing, (Reported) Albuterol Sulfate (Ventolin Hfa) 18 Gm Hfa.aer.ad, 2 PUFF INH Q4-6HP PRN for wh eezing Allergies Coded Allergies: aspirin (Verified Adverse Reaction, Unknown, ulcers, 05/16/19) SANTIAGO NGO MD Jun 13, 2020 12:40
--- NOTE | 2020-06-13 12:43 | IPN ---
Attending, Co-signing Physician: Dr. Tania Mejia M.D. PULMONARY PROGRESS NOTE DATE: 06/13/2020 SUBJECTIVE: Inge was seen and examined this morning by the Pulmonary Service while lying upright in bed. She has now been on 3 liters nasal cannula supplemental oxygen for roughly 24 hours and has maintained her saturations. She does still continue to desaturate whenever ambulating to and from the bathroom or when coughing. She has been coughing a bit more frequently over the past 36-48 hours and did bring up some blood-tinged sputum yesterday. She continues to eat and drink without any issues. She has not had a bowel movement for the last 24 hours but had been having them pretty steadily prior to that. She continues to make good amounts of urine. She denies any significant pain at this time, specifically including chest pain or pain with breathing. She also denies any current or overnight fevers, chills, or night sweats. She reports no increased work of breathing or shortness of breath while receiving the supplemental oxygen. She denies any chest discomfort. PHYSICAL EXAMINATION: VITAL SIGNS: Temperature is 97.6, heart rate 72, respiratory rate 19, blood pressure 117/66. Oxygen saturation 92% while receiving 3 liters of supplemental oxygen via nasal cannula. GENERAL: Pleasant elderly female lying upright in bed. She is awake, alert and oriented x3 on supplemental oxygen nasal cannula. She does actually seem to be less short of breath with conversation than on previous day exams. HEENT: Normocephalic, atraumatic. Non-injected, anicteric sclera. She is wearing eyeglasses. Pupils are equal, round and reactive to light and accommodation. Mucous membranes are moist. There is no pharyngeal erythema or exudate. Mallampati airway score of 4. NECK: Supple but quite wide and obese. No lymphadenopathy appreciated. Trachea is midline. CARDIOVASCULAR: Regular rate and right rhythm. There is a question murmur located over the right upper sternal border, otherwise no rubs or gallops are appreciated. Difficult to assess for elevated JVP due to neck habitus. 2+ radial pulses bilaterally. RESPIRATORY: There continued to be diffuse bilateral crackles from the middle part of each lung moving inferiorly down into the bases with the amount of crackles slightly greater on the right than the left. There is no dullness to percussion. No wheezes or rhonchi are appreciated. She is breathing with the assistance of supplemental oxygen 3 liters nasal cannula. Conversational dyspnea is improved over exam a few days ago. Symmetric chest expansion. ABDOMEN: Obese, soft, nondistended and nontender. There is no rigidity appreciated. Normoactive bowel sounds throughout. Difficult to assess for hepatosplenomegaly secondary to habitus. EXTREMITIES: There is bilateral lower extremity non-pitting swelling that has relatively been consistent over the past few days. There is some slight discomfort with palpation of the tibia bilaterally. 2+ radial pulses bilaterally. No signs of clubbing or cyanosis. NEUROLOGIC: Awake, alert and oriented x3. No focal deficits appreciated. Non-dysarthric speech. LABORATORY DATA: A CBC or CMP nor blood gas was done today; 24 hour input positive 1420, 24 hour output negative 2275 with a net negative of 855. Blood cultures from 06/10/2020, both have no growth after 48 hours. Respiratory viral panel from June 10 negative. Other than a negative rheumatoid factor, all remaining connective tissue/autoimmune/rheumatological immunologic labs are still pending at this time. There is no new imaging to review today. IMPRESSION AND PLAN: 1. Acute on chronic hypoxic respiratory failure. This is most likely the result of multiple components: A flare of undiagnosed underlying intersitial lung disease, a component of possible aspiration pneumonia as well as questionable pulmonary edema. As far as the intersitial lung disease, most of the labs are still pending. 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 In terms of the aspiration pneumonia, she did report an increase in her cough over the past 24 hours as well as some scant hemoptysis yesterday. From an oxygenation monitoring standpoint, the biggest obstacle will be weaning her upon ambulation. We have discussed this with her primary physician here in the hospital, Dr. Correa. Physical Therapy has been asked to ambulate her and see what her oxygen demand is with that. Overall, she does report feeling a bit better since the initiation of steroids two days ago and we also discussed with Dr. Correa the need for a steroid taper upon eventual discharge. Upon review of imaging both on this admission and the one in April 2019, there is some scattered fibrosis in the lungs. There is now potential for acute inflammation on top of the chronic scarring. In terms of her recent COVID pneumonia diagnosis from last month, this does not appear to be related to that; rather, it's more like the result of the aforementioned etiologies. During the month since hospital discharge, she was on 3 L O2 at home. She is now back to that baseline 3 liters. Of note, she reports not being on home oxygen prior to the discharge last month. 2. Chronic compensated hypercarbia, this is most likely also due to multiple factors: namely, obstructive sleep apnea/obesity hypoventilation syndrome, a restrictive lung disease due to the fibrosis noted on imaging, cardiomegaly, a significant hiatal hernia, thoracic kyphosis, and the potential aforementioned underlying undiagnosed interstitial lung disease. Her initial ABG 2 days ago showed compensation with very elevated CO2. She will require follow-up upon discharge with both Pulmonary and Sleep Medicine to test for sleep apnea and possible need of nocturnal oxygen/pressure support. 3. Presumed pulmonary hypertension. Upon review of imaging from April 2019, she has a significantly enlarged right ventricle. Imaging also did show a significantly enlarged pulmonary artery, as well as some reflux of IV contrast. These findings are indicative of increased pressure, and are likely a manifestation of fibrosis. At this point, it is felt that the pulmonary hypertension is most likely a combination of Group 2 pulmonary hypertension associated with left sided heart disease, as well as a component of Group 3 pulmonary hypertension due to the long-term hypoxia from the etiology discussed above. She did report today recently having outpatient workup with Cardiology (believed to be done with Dr. Gian Field). Upon discharge, it will be prudent for her to follow-up with her PCP and obtain records of said cardiology work-up. 4. Right sided diastolic heart failure. As mentioned above, there are likely HFpEF indicators from recent outpatient cardiology work-up. What is important for her is that she remain either net neutral or net negative for Is & Os. She did not appear to be too fluid overloaded on exam today, and is likely near her baseline. Therefore, it does not seem as though diuretics would be warranted at this time. 5. Possible aspiration pneumonia. As discussed above, she did report increase in cough over the past 24 hours with some scant hemoptysis. We did discussed this with Dr. Correa, and he will likely start her on a short course of antibiotics to provide coverage for possible aspiration pneumonia. This is likely a manifestation of her significant hiatal hernia. BABS
--- NOTE | 2020-06-13 13:22 | IPNPDOC ---
Date Seen The patient was seen on 06/12/20. Progress Note SUBJECTIVE: Patient lying comfortably in bed, reports improvement in dyspnea compared to yesterday, no new complaints today. PHYSICAL EXAMINATION: VITAL SIGNS: Please see below. GENERAL: No distress HEENT: Normocephalic, atraumatic, moist mucous membranes NECK: Supple CARDIOVASCULAR EXAMINATION: S1, S2, no murmurs RESPIRATORY EXAMINATION: Scattered rhonchi, left greater than right ABDOMINAL EXAMINATION: Soft, nontender, nondistended, positive bowel sounds EXTREMITIES: Range of motion intact SKIN: No rash NEUROLOGICAL EXAMINATION: Alert and oriented 3, no focal deficits PSYCHIATRIC EXAMINATION: Calm and cooperative LABORATORY DATA, IMAGING STUDIES, MICROBIOLOGY: Please see below. PLAN: 1. Hypoxemic respiratory failure. Worsening hypoxemia, dyspnea and CAT scan findings CTA negative for PE Low suspicion for active infectious process, inflammatory etiology is more likely, improving with steroids. Likely chronic silent aspiration which may have led to pulmonary fibrosis. Pro-calcitonin negative. Respiratory viral panel negative. Blood cultures negative. Pulmonary recommendations appreciated, remains on prednisone 40 mg daily. 2. Hypertension. Continue metoprolol, triamterene and hydrochlorothiazide DVT prophylaxis: Heparin subcutaneous GI prophylaxis: Not needed VS, I&O, 24H, Fishbone Vital Signs/I&O Vital Signs Date Time Temp Pulse Resp B/P (MAP) Pulse Ox O2 Delivery O2 Flow Rate FiO2 06/13/20 09:00 3.0 06/13/20 08:54 78 121/81 06/13/20 06:00 97.6 19 92 Nasal Cannula 06/10/20 19:55 92 I&O- Last 24 Hours up to 6 AM 06/13/20 06:00 Intake Total 1420 ml Output Total 2475 ml Balance -1055 ml Laboratory Data Microbiology Microbiology 06/10/20 Respiratory Virus Panel (PCR) ([facility]) - Final, Complete 06/10/20 Blood Culture - Preliminary, Resulted No Growth after 72 hours. All specime... 06/10/20 Blood Culture - Preliminary, Resulted No Growth after 72 hours. All specime... SANTIAGO NGO MD Jun 13, 2020 13:22
[2020-06-14 12:08] LABS: RNP ANTIBODY < 0.2 AI (0.0-0.9); SMITHS ANTIBODY < 0.2 AI (0.0-0.9)
== END 2020-06-13 13:16 | disposition home health service (06) | DRG 189 ==
LOC: M ED 10:54 → M ED INP 16:48 → M MSPAV 19:56
PROVIDERS: ADMIT Internal Medicine; ATTEND Internal Medicine
DX: J96.21 Acute and chronic respiratory failure with hypoxia (principal); J69.0 Pneumonitis due to inhalation of food and vomit; E87.3 Alkalosis; I50.32 Chronic diastolic (congestive) heart failure; E66.9 Obesity, unspecified; I11.0 Hypertensive heart disease with heart failure; E83.42 Hypomagnesemia; D47.3 Essential (hemorrhagic) thrombocythemia; J84.10 Pulmonary fibrosis, unspecified; K44.9 Diaphragmatic hernia without obstruction or gangrene; Z66 Do not resuscitate; Z86.16 Personal history of COVID-19; Z87.891 Personal history of nicotine dependence; Z99.81 Dependence on supplemental oxygen; Z79.899 Other long term (current) drug therapy; Z88.6 Allergy status to analgesic agent; Z68.37 Body mass index [BMI] 37.0-37.9, adult

== ENCOUNTER → 2020-07-04 | Outpatient (CLI) | payer MEDICARE ==
[~2020-07-04] MED LIST changes: +ALBU83IN NEB; +AUGM500T34 PO; +CETI-24 PO; +CETI10CH PO; +FLON1SPR NARES; +PRED10TA2 PO
--- NOTE | 2020-07-07 17:33 | SLEEPCENT ---
NOCTURNAL POLYSOMNOGRAPHY DATE: 07/04/2020 ORDERED BY: Hugo Duvall D.O. Nocturnal polysomnography was performed evaluation of sleep physiology in this patient with a history of excessive somnolence. 7 hours and 26 minutes of data were reviewed. There were 392.5 minutes of sleep identified. Sleep latency was short at 8.5 minutes. REM latency was prolonged at 200 minutes. Sleep architecture showed fragmentation and poor progression. Two REM cycles were appreciated. Overall sleep efficiency was 89.5%. The electrocardiogram showed a sinus rhythm with an average heart rate of 80 beats per minute. EEG showed fairly normal waveforms for wake and sleep. Testing was performed on supplemental oxygen and despite supplemental oxygen; there were 261 respiratory events identified of 10 seconds in duration or greater for an apnea-hypopnea index of 39.9. The events were not exclusive to sleep stage nor body posture. Arousals from respiratory events occurred 23.2 times per hour, and oxygen desaturations despite supplemental oxygen were seen into the 70s. There was some minor limb activity. Limb movement arousal index was 0.3. IMPRESSION: Severe Obstructive sleep apnea syndrome (G47.33), apnea-hypopnea index 39.9. RECOMMENDATION: The patient should be encouraged to return [facility]. In the interim, alcohol and sedative avoidance should be practiced and caution exercised during the operation of motor vehicles.
== END ==
LOC: M SLEEP 20:00
PROVIDERS: ATTEND Internal Medicine Pulmonary Disease
DX: G47.33 Obstructive sleep apnea (adult) (pediatric) (principal)

== ENCOUNTER → 2020-07-15 | Outpatient (CLI) | payer MEDICARE ==
--- NOTE | 2020-07-16 13:33 | SLEEPCENT ---
NOCTURNAL POLYSOMNOGRAPHY CPAP TITRATION DATE: 07/15/2020 ORDERED BY: TIFAFNY Gifford Nocturnal polysomnography was performed for the titration of pressure therapy in this patient with obstructive sleep apnea syndrome with apnea-hypopnea index of 39.9. For testing, a ResMed AirFit F20 full face mask of small size was used, 5 cm of water pressure were applied to the circuit, and the lights were extinguished. 7 hours and 41 minutes of data were reviewed. There were 418.5 minutes of sleep identified. Sleep latency was short at 3 minutes. REM latency was short at 8 minutes. Sleep architecture was good with six REM cycles. Overall sleep efficiency was 92.2%. The electrocardiogram showed a sinus rhythm with an average heart rate of 88 beats per minute. EEG showed reasonably normal waveforms for wake and sleep. Persistence of obstructive respiratory events prompted an increase in CPAP pressure to 19. Despite optimal CPAP pressure, hypoventilatory oxygen desaturations were seen prompting the addition of supplemental oxygen. Best sleep was seen on a CPAP pressure of 19. Supplemental oxygen was necessary to address hypoventilatory desaturations. There was also significant activity in the limb leads on this study; however, the limb movement arousal index was 2.6. IMPRESSION: 1. Severe obstructive sleep apnea syndrome (G47.33). 2. Hypoventilatory oxygen desaturations. RECOMMENDATION: Nightly use of pressure therapy at 19 cm of water will be sufficient to overcome the obstructive respiratory events. Supplemental oxygen at 3 L/min will be necessary to address the hypoventilatory oxygen desaturations.
== END ==
LOC: M SLEEP 20:00
PROVIDERS: ATTEND Physician Assistant
DX: G47.33 Obstructive sleep apnea (adult) (pediatric) (principal)

== ENCOUNTER → 2020-08-05 | Outpatient (CLI) | payer MEDICARE ==
--- NOTE | 2020-08-05 15:19 | REP ---
INDICATION: ACUTE ON CHRONIC SYSTOLIC (CONGESTIVE) HEART FAILURE COMPARISON: 06/10/2020 as well as other prior exams. TECHNIQUE: PA/Lateral FINDINGS: The previously noted right lung infiltrates have improved but there are diffuse residual infiltrates still present in the right lung. Chronic fibro atelectatic change in the left lung base is unchanged. Very large hiatal hernia is again noted. The heart and mediastinum appear unchanged. There are degenerative changes of the spine. IMPRESSION: Moderate diffuse right lung infiltrates are still present, improved since the prior study of 06/10/2020. <Electronically signed by Alcides Mari > 08/05/20 [id number]
[2020-08-05 15:45] LABS: ALBUMIN 3.3 GM/DL (3.2-5.2); BILIRUBIN,TOTAL 0.5 MG/DL (0.2-1.0); CALCIUM LEVEL 8.8 MG/DL (8.8-10.2); CREATININE FOR GFR 1.24 MG/DL (0.55-1.30); GLOMERULAR FILTRATION RATE 44.9 (>39); POTASSIUM SERUM 4.2 MEQ/L (3.5-5.1); TOTAL PROTEIN 7.2 GM/DL (6.4-8.2)
== END ==
LOC: M LAB 14:33
PROVIDERS: ATTEND Nurse Practitioner Family
DX: I50.23 Acute on chronic systolic (congestive) heart failure (principal)

== ENCOUNTER → 2020-08-25 | Outpatient (CLI) | payer MEDICARE ==
--- NOTE | 2020-08-25 13:59 | REP ---
INDICATION: CHRONIC RESPIRATORY FAILURE. COMPARISON: 06/10/2020 as well as other prior exams. TECHNIQUE: CT chest performed without the use of intravenous contrast. Sagittal and coronal reconstruction images are performed. FINDINGS: Lungs: The diffuse bilateral infiltrates seen on the most recent exam have improved with mild scattered residual infiltrate remaining in areas of both lungs. There are underlying chronic fibrotic changes throughout both lungs. Mediastinum: A right pericarinal lymph node measures 1.5 cm in diameter unchanged. Few other smaller mediastinal lymph nodes are present, also unchanged. Sharron: No gross adenopathy. Axilla: No gross adenopathy. Pleura: No effusion. Heart: Heart is mildly enlarged. Thoracic aorta: No aneurysm. Upper abdominal structures: There is a very large hiatal hernia. Visualized osseous structures: There are degenerative changes of the spine without compression deformity. IMPRESSION: The diffuse bilateral infiltrates seen on the most recent exam have improved with mild scattered residual infiltrate remaining in areas of both lungs. <Electronically signed by Alcides Mari > 08/25/20 1998
== END ==
LOC: M RAD 11:09
PROVIDERS: ATTEND Internal Medicine Pulmonary Disease
DX: J96.12 Chronic respiratory failure with hypercapnia (principal)

== ENCOUNTER → 2020-09-22 | Outpatient (CLI) | payer MEDICARE ==
--- NOTE | 2020-09-23 15:52 | SLEEPCENT ---
NOCTURNAL POLYSOMNOGRAPHY DATE: 09/22/2020 ORDERED BY: Hugo Duvall D.O. Nocturnal polysomnography was performed for retitration of pressure therapy in this patient with obstructive sleep apnea syndrome. For testing a ResMed AirFit F20 full face mask of medium size was used, 3 liters of oxygen was initially bled into the circuit and the lights were extinguished. 7 hours and 20 minutes of data were reviewed. There were 265.5 minutes of sleep identified. Sleep latency was normal at 34 minutes. REM latency was short at 7.5 minutes. Sleep architecture improved later in the study and optimal pressure therapy. There were three REM cycles noted. Overall sleep efficiency was 61%. The electrocardiogram showed a sinus rhythm with frequent PVCs. Average heart rate of 70 beats per minute. EEG showed fairly normal waveforms for wake and sleep. There were no focal events identified. 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 Pressures were escalated and optimal sleep was seen on a BiLevel device inspiratory pressure/expiratory of 12. 4 liters of oxygen was necessary to be bled through the system to maintain a borderline saturation. IMPRESSION: Obstructive sleep apnea syndrome (G47.33). RECOMMENDATION: Nightly use of pressure therapy via BiLevel device inspiratory pressure 18/expiratory 12 with 4 liters of oxygen bled in through the system.
== END ==
LOC: M SLEEP 20:00
PROVIDERS: ATTEND Internal Medicine Pulmonary Disease
DX: G47.33 Obstructive sleep apnea (adult) (pediatric) (principal)

== ENCOUNTER → 2021-03-20 | Outpatient (CLI) | payer MEDICARE ==
[2021-03-20 12:02] LABS: BILIRUBIN,TOTAL 0.6 MG/DL (0.2-1.0); CALCIUM LEVEL 9.3 MG/DL (8.8-10.2); CREATININE FOR GFR 1.58 MG/DL (0.55-1.30); GLOMERULAR FILTRATION RATE 33.9 (>39); POTASSIUM SERUM 3.9 MEQ/L (3.5-5.1)
[2021-03-20 12:03] LABS: ALBUMIN 3.5 GM/DL (3.2-5.2); CHOLESTEROL RISK RATIO 3.326 (<5); TOTAL PROTEIN 7.8 GM/DL (6.4-8.2)
[2021-03-20 12:09] LABS: CREATININE, URINE 48.6 MG/DL; MALB URINE SIEMENS 9.4 MG/L; MAU/CREAT RATIO 19.3 MCG/MG (0.0-30.0)
[2021-03-20 13:17] LABS: HEMOGLOBIN A1c 5.5 %
== END ==
LOC: M LAB 10:23
PROVIDERS: ATTEND Nurse Practitioner Family
DX: R73.03 Prediabetes (principal); Z79.899 Other long term (current) drug therapy

== ENCOUNTER → 2021-06-22 | Outpatient (CLI) | payer MEDICARE ==
[2021-06-22 17:50] LABS: CALCIUM LEVEL 9.8 MG/DL (8.8-10.2); CREATININE FOR GFR 1.48 MG/DL (0.55-1.30); GLOMERULAR FILTRATION RATE 36.5 (>39); POTASSIUM SERUM 4.3 MEQ/L (3.5-5.1)
== END ==
LOC: M LAB 15:53
PROVIDERS: ATTEND Nurse Practitioner Family
DX: I10 Essential (primary) hypertension (principal)

== ENCOUNTER → 2021-07-21 | Outpatient (REF) | payer MEDICARE ==
[2021-07-21 18:14] LABS: TOTAL PROTEIN 7.9 GM/DL (6.4-8.2)
== END ==
LOC: M LAB REF 17:06
PROVIDERS: ATTEND Internal Medicine Nephrology
DX: N18.9 Chronic kidney disease, unspecified (principal); D63.1 Anemia in chronic kidney disease

== ENCOUNTER → 2021-08-11 | Outpatient (CLI) | payer MEDICARE | LOC: M RAD 13:33 | PROVIDERS: ATTEND Internal Medicine Nephrology | DX: N18.32 Chronic kidney disease, stage 3b (principal) ==

== ENCOUNTER → 2021-10-07 | Outpatient (CLI) | payer MEDICARE ==
[~2021-10-07] MED LIST changes: +ALBU2.5V10 NEB; -ALBU83IN NEB; +ISOVUE-370 76% 100ML VIAL As Ordered ONE; -TRIA37.53 PO; +TRIA37.577 PO
== END ==
LOC: M RAD 08:18
PROVIDERS: ATTEND Internal Medicine Nephrology
DX: D41.02 Neoplasm of uncertain behavior of left kidney (principal)
CPT/HCPCS: 74177; Q9967

== ENCOUNTER → 2022-03-22 | Outpatient (CLI) | payer MEDICARE ==
[~2022-03-22] MED LIST changes: -ISOVUE-370 76% 100ML VIAL As Ordered ONE
[2022-03-22 16:25] LABS: ALBUMIN 3.7 G/DL (3.2-5.2); CARBON DIOXIDE LEVEL 32 MMOL/L (20-31); CHLORIDE LEVEL 99 MMOL/L (98-107); POTASSIUM SERUM 4.4 MMOL/L (3.5-5.1); SODIUM LEVEL 140 MMOL/L (136-145)
[2022-03-22 16:30] LABS: ALKALINE PHOSPHATASE 91 U/L (46-116); CALCIUM LEVEL 9.4 MG/DL (8.3-10.6); GLUCOSE, FASTING 116 MG/DL (74-106)
[2022-03-22 16:31] LABS: BLOOD UREA NITROGEN 21 MG/DL (9-23); TRIGLYCERIDES LEVEL 192 MG/DL (<150)
[2022-03-22 16:32] LABS: AST/SGOT 26 U/L (<34)
[2022-03-22 16:33] LABS: BILIRUBIN,TOTAL 0.4 MG/DL (0.3-1.2); CHOLESTEROL LEVEL 180 MG/DL (<200); CHOLESTEROL RISK RATIO 3.71 (<5); GLOMERULAR FILTRATION RATE 38.9 (>39); HDL CHOLESTEROL 48.4 MG/DL (>40); LDL CHOLESTEROL 93.2 MG/DL (<100); NON-HDL-C 132 MG/DL; TOTAL PROTEIN 7.2 G/DL (5.7-8.2)
[2022-03-22 16:51] LABS: ALT/SGPT < 9 U/L (7.0-40)
[2022-03-22 19:41] LABS: HEMOGLOBIN A1c 5.1 % (4.0-6.0)
== END ==
LOC: M LAB 14:56
PROVIDERS: ATTEND Nurse Practitioner Family
DX: I10 Essential (primary) hypertension (principal); R73.03 Prediabetes

== ENCOUNTER → 2023-04-26 | Outpatient (CLI) | payer MEDICARE ==
[2023-04-26 10:12] LABS: BASO # 0.1 10^3/uL (0.0-0.2); BASO % 0.6 % (0.0-1.0); EOS # 0.2 10^3/uL (0.0-0.5); EOS % 1.8 % (0.0-3.0); HEMOGLOBIN 13.9 g/dl (12.0-15.5); LYMPH # 1.7 10^3/uL (1.5-5.0); LYMPH % 18.4 % (24.0-44.0); MEAN CORPUSCULAR HEMOGLOBIN 31.9 pg (27.0-33.0); MEAN CORPUSCULAR HGB CONC 31.6 g/dl (32.0-36.5); MEAN CORPUSCULAR VOLUME 100.9 fl (80.0-96.0); MONO % 11.1 % (2.0-8.0); NEUTROPHILS # 6.1 10^3/uL (1.5-8.5); NEUTROPHILS % 67.7 % (36.0-66.0); PLATELET COUNT, AUTOMATED 308 10^3/uL (150-450); RED BLOOD COUNT 4.36 10^6/uL (4.00-5.40); WHITE BLOOD COUNT 9.1 10^3/uL (4.0-10.0)
[2023-04-26 10:21] LABS: HEMOGLOBIN A1c 5.2 % (4.0-6.0)
[2023-04-26 10:38] LABS: ALBUMIN 3.6 G/DL (3.2-5.2); ALKALINE PHOSPHATASE 97 U/L (46-116); ALT/SGPT < 9 U/L (7.0-40); AST/SGOT 18 U/L (<34); BILIRUBIN,TOTAL 0.4 MG/DL (0.3-1.2); BLOOD UREA NITROGEN 25 MG/DL (9-23); CALCIUM LEVEL 9.1 MG/DL (8.3-10.6); CARBON DIOXIDE LEVEL 30 MMOL/L (20-31); CHLORIDE LEVEL 102 MMOL/L (98-107); CREATININE FOR GFR 1.41 MG/DL (0.55-1.30); GLOMERULAR FILTRATION RATE 38.5 (>39); GLUCOSE, FASTING 97 MG/DL (74-106); POTASSIUM SERUM 4.2 MMOL/L (3.5-5.1); SODIUM LEVEL 140 MMOL/L (136-145); TOTAL PROTEIN 7.4 G/DL (5.7-8.2)
== END ==
LOC: M LAB 09:31
PROVIDERS: ATTEND Nurse Practitioner Family
DX: I10 Essential (primary) hypertension (principal); R73.03 Prediabetes

== ENCOUNTER 2023-05-27 05:37 | Emergency (ER) | payer MEDICARE ==
[~2023-05-27] VITALS: Ht 157.5 cm; Wt 102.8 kg
[2023-05-27 06:22] LABS: BASO % 0.2 % (0.0-1.0); EOS # 0.1 10^3/uL (0.0-0.5); EOS % 0.4 % (0.0-3.0); HEMATOCRIT 43.2 % (36.0-47.0); HEMOGLOBIN 13.9 g/dl (12.0-15.5); LYMPH # 1.2 10^3/uL (1.5-5.0); LYMPH % 7.1 % (24.0-44.0); MEAN CORPUSCULAR HEMOGLOBIN 32.2 pg (27.0-33.0); MEAN CORPUSCULAR HGB CONC 32.2 g/dl (32.0-36.5); MONO # 1.4 10^3/uL (0.0-0.8); MONO % 8.5 % (2.0-8.0); NEUTROPHILS # 13.7 10^3/uL (1.5-8.5); NEUTROPHILS % 83.4 % (36.0-66.0); PLATELET COUNT, AUTOMATED 277 10^3/uL (150-450); RED BLOOD COUNT 4.32 10^6/uL (4.00-5.40); WHITE BLOOD COUNT 16.4 10^3/uL (4.0-10.0)
[2023-05-27 06:45] LABS: ALBUMIN 3.4 G/DL (3.2-5.2); ALKALINE PHOSPHATASE 84 U/L (46-116); ALT/SGPT < 9 U/L (7.0-40); AST/SGOT 19 U/L (<34); BILIRUBIN,DIRECT 0.5 MG/DL (<0.4); BILIRUBIN,TOTAL 1.4 MG/DL (0.3-1.2); BLOOD UREA NITROGEN 19 MG/DL (9-23); CALCIUM LEVEL 8.9 MG/DL (8.3-10.6); CARBON DIOXIDE LEVEL 30 MMOL/L (20-31); CHLORIDE LEVEL 101 MMOL/L (98-107); CREATININE FOR GFR 1.38 MG/DL (0.55-1.30); GLOMERULAR FILTRATION RATE 39.4 (>39); GLUCOSE, FASTING 147 MG/DL (74-106); SODIUM LEVEL 138 MMOL/L (136-145); TOTAL PROTEIN 7.7 G/DL (5.7-8.2)
[2023-05-27] MEDS ORDERED: MORPHINE 2 MG/ML 1ML VIAL IV ONE (07:35)
[2023-05-27] MEDS: IPRATROPIUM 0.5MG/ALBUTEROL 2.5MG INH SOL UD 3ML (DUONEB) NEB SCH ×3 (07:50→08:51)
[2023-05-27 07:59] LABS: CPK CREATINE PHOSPHOKINASE 55 U/L (34-145)
[2023-05-27 08:03] LABS: CK-MB VALUE MASS < 1.0 NG/ML (<3.6); MB/CK RELATIVE INDEX 1.81 (< OR =4)
[2023-05-27] MEDS ORDERED: ISOVUE-370 76% 100ML VIAL As Ordered ONE (08:03)
[2023-05-27] MEDS ORDERED: MED REC IN PROGRESS XX SCH (09:55)
[2023-05-27] MEDS ORDERED: ALBU8.5H INH (10:45)
[2023-05-27] MEDS ORDERED: PANT40TA29 PO (10:46)
[2023-05-27] MEDS ORDERED: MAXZTAB PO (11:00)
[2023-05-27] MEDS ORDERED: HOME MED LIST COMPLETE! XX SCH (11:00)
[2023-05-27] MEDS ORDERED: CEFD300C PO (11:11)
[2023-05-27] MEDS ORDERED: PRED10TA2 PO (11:11)
[2023-05-27] MEDS ORDERED: DOXY100C82 PO (11:11)
[2023-05-27] MEDS ORDERED: ALB2.5NEB NEB (11:11)
[2023-05-27 11:27] VITALS: BP 110/64; TEMP 98.9; O2SAT 95
== END 2023-05-27 11:40 | disposition home or self-care (01) ==
LOC: M ED 05:37
DX: J18.1 Lobar pneumonia, unspecified organism (principal); J84.9 Interstitial pulmonary disease, unspecified; I50.9 Heart failure, unspecified; I27.22 Pulmonary hypertension due to left heart disease; E66.9 Obesity, unspecified; Z79.899 Other long term (current) drug therapy; Z88.8 Allergy status to other drugs, medicaments and biological substances
CPT/HCPCS: 71045; 71275; 80048; 80076; 82550; 82553; 83605; 83880; 84484; 85025; 87486; 87581; 87633; 87798; 93005; 93041; 94640; 94760; 96374; 99285; Q9967

== ENCOUNTER 2023-06-14 21:22 | Emergency (ER) | payer MEDICARE ==
[~2023-06-14] VITALS: Ht 162.6 cm; Wt 100.0 kg
[~2023-06-14 21:22] MED LIST changes: +ALB2.5NEB NEB; +ALBU8.5H INH; +CEFD300C PO; +DOXY100C82 PO; +MAXZTAB PO
[2023-06-14 22:05] LABS: VENOUS HCO3 30.4 MMOL/L (23.0-27.0); VENOUS O2 SATURATION 81.3 % (60.0-80.0); VENOUS PARTIAL PRESSURE CO2 52.4 mmHg (38.0-50.0); VENOUS PARTIAL PRESSURE O2 42.1 mmHg (30.0-50.0); VENOUS PH 7.381 UNITS (7.330-7.430); VENOUS STANDARD HCO3 27.6 MMOL/L
[2023-06-14 22:08] LABS: BASO % 0.2 % (0.0-1.0); EOS % 0.2 % (0.0-3.0); HEMATOCRIT 41.5 % (36.0-47.0); HEMOGLOBIN 13.5 g/dl (12.0-15.5); LYMPH # 1.3 10^3/uL (1.5-5.0); LYMPH % 10.7 % (24.0-44.0); MEAN CORPUSCULAR HEMOGLOBIN 32.5 pg (27.0-33.0); MEAN CORPUSCULAR HGB CONC 32.5 g/dl (32.0-36.5); MEAN CORPUSCULAR VOLUME 99.8 fl (80.0-96.0); MONO # 1.3 10^3/uL (0.0-0.8); MONO % 10.6 % (2.0-8.0); NEUTROPHILS # 9.6 10^3/uL (1.5-8.5); NEUTROPHILS % 77.5 % (36.0-66.0); PLATELET COUNT, AUTOMATED 218 10^3/uL (150-450); RED BLOOD COUNT 4.16 10^6/uL (4.00-5.40); WHITE BLOOD COUNT 12.4 10^3/uL (4.0-10.0)
[2023-06-14 22:20] LABS: INR 1.18; PROTHROMBIN TIME 14.6 SECONDS (12.5-14.5)
[2023-06-14] MEDS: IPRATROPIUM 0.5MG/ALBUTEROL 2.5MG INH SOL UD 3ML (DUONEB) NEB ONE (22:21)
[2023-06-14 22:28] VITALS: O2SAT 93
[2023-06-14 22:35] LABS: ALBUMIN 2.8 G/DL (3.2-5.2); ALKALINE PHOSPHATASE 80 U/L (46-116); ALT/SGPT < 9 U/L (7.0-40); AST/SGOT 19 U/L (<34); BILIRUBIN,DIRECT 0.3 MG/DL (<0.4); BILIRUBIN,TOTAL 0.9 MG/DL (0.3-1.2); BLOOD UREA NITROGEN 22 MG/DL (9-23); CALCIUM LEVEL 8.4 MG/DL (8.3-10.6); CARBON DIOXIDE LEVEL 31 MMOL/L (20-31); CHLORIDE LEVEL 99 MMOL/L (98-107); CK-MB VALUE MASS < 1.0 NG/ML (<3.6); CREATININE FOR GFR 1.52 MG/DL (0.55-1.30); GLOMERULAR FILTRATION RATE 35.2 (>39); GLUCOSE, FASTING 168 MG/DL (74-106); POTASSIUM SERUM 3.7 MMOL/L (3.5-5.1); SODIUM LEVEL 136 MMOL/L (136-145); TOTAL PROTEIN 6.4 G/DL (5.7-8.2)
[2023-06-14 22:37] LABS: THYROXINE (T4) 6.1 UG/DL (4.5-10.9)
[2023-06-14 22:38] LABS: THYROID STIMULATING HORMONE 5.699 uIU/ML (0.55-4.78)
[2023-06-14 22:41] LABS: CPK CREATINE PHOSPHOKINASE 86 U/L (34-145); MB/CK RELATIVE INDEX 1.16 (< OR =4)
[2023-06-14] MEDS ORDERED: ISOVUE-370 76% 100ML VIAL As Ordered ONE (22:43)
[2023-06-15 00:46] VITALS: BP 132/92; TEMP 98.8; O2SAT 92
== END 2023-06-15 00:58 | disposition home or self-care (01) ==
LOC: M ED 21:22
DX: R06.02 Shortness of breath (principal); I11.0 Hypertensive heart disease with heart failure; I50.22 Chronic systolic (congestive) heart failure; I45.10 Unspecified right bundle-branch block; R00.0 Tachycardia, unspecified; Z88.8 Allergy status to other drugs, medicaments and biological substances; Z79.51 Long term (current) use of inhaled steroids; Z79.52 Long term (current) use of systemic steroids; Z79.899 Other long term (current) drug therapy; Z79.2 Long term (current) use of antibiotics
CPT/HCPCS: 36415; 71045; 71275; 80048; 80076; 82550; 82553; 82803; 83605; 83880; 84436; 84443; 84484; 85025; 85610; 87040; 87486; 87581; 87633; 87798; 93005; 93041; 94640; 94760; 99285; Q9967

== ENCOUNTER 2023-11-17 16:26 | Inpatient (IN) | payer MEDICARE ==
[~2023-11-17] VITALS: Ht 154.9 cm; Wt 109.7 kg
[2023-11-17] MEDS: methylPREDNISolone 125MG 2ML VIAL IV ONE (17:19)
[2023-11-17] MEDS: IPRATROPIUM 0.5MG/ALBUTEROL 2.5MG INH SOL UD 3ML (DUONEB) NEB ONE (17:23)
[2023-11-17] MEDS: ALBUTEROL SULFATE 2.5MG/0.5ML INH NEB SOLN INH ONE (17:23)
[2023-11-17 17:24] LABS: BASO # 0.1 10^3/uL (0.0-0.2); BASO % 0.5 % (0.0-1.0); EOS % 0.4 % (0.0-3.0); HEMATOCRIT 51.1 % (36.0-47.0); HEMOGLOBIN 15.5 g/dl (12.0-15.5); LYMPH # 1.5 10^3/uL (1.5-5.0); LYMPH % 13.7 % (24.0-44.0); MEAN CORPUSCULAR HEMOGLOBIN 31.7 pg (27.0-33.0); MEAN CORPUSCULAR HGB CONC 30.3 g/dl (32.0-36.5); MEAN CORPUSCULAR VOLUME 104.5 fl (80.0-96.0); MONO % 9.1 % (2.0-8.0); NEUTROPHILS % 75.1 % (36.0-66.0); PLATELET COUNT, AUTOMATED 284 10^3/uL (150-450); RED BLOOD COUNT 4.89 10^6/uL (4.00-5.40); WHITE BLOOD COUNT 10.6 10^3/uL (4.0-10.0)
[2023-11-17 17:26] LABS: ETHYL ALCOHOL (ETHANOL) < 0.003 % (0.000-0.010)
[2023-11-17 17:27] LABS: CPK CREATINE PHOSPHOKINASE 53 U/L (34-145); SALICYLATE LEVEL < 3.0 MG/DL (<30)
[2023-11-17 17:28] LABS: ALBUMIN 3.9 G/DL (3.2-5.2); ALKALINE PHOSPHATASE 73 U/L (46-116); ALT/SGPT 19 U/L (7.0-40); AST/SGOT 24 U/L (<34); BILIRUBIN,DIRECT 0.4 MG/DL (<0.4); BLOOD UREA NITROGEN 38 MG/DL (9-23); CALCIUM LEVEL 9.1 MG/DL (8.3-10.6); CARBON DIOXIDE LEVEL 31 MMOL/L (20-31); CHLORIDE LEVEL 103 MMOL/L (98-107); CK-MB VALUE MASS 3.4 NG/ML (<3.6); CREATININE FOR GFR 1.82 MG/DL (0.55-1.30); GLOMERULAR FILTRATION RATE 28.6 (>39); GLUCOSE, FASTING 145 MG/DL (74-106); MB/CK RELATIVE INDEX 6.41 (< OR =4); POTASSIUM SERUM 5.8 MMOL/L (3.5-5.1); SODIUM LEVEL 138 MMOL/L (136-145); TOTAL PROTEIN 7.1 G/DL (5.7-8.2)
[2023-11-17 17:29] LABS: THYROID STIMULATING HORMONE 4.529 uIU/ML (0.55-4.78)
[2023-11-17] MEDS: LIDOCAINE 2% 5ML JELLY UROJET TOP ONE (17:33)
[2023-11-17 17:50] LABS: ABG HCO3 27.1 MMOL/L (22.0-26.0); ABG O2 SATURATION 99.6 % (95.0-99.0); ABG PARTIAL PRESSURE O2 317.8 mmHg (75.0-100.0); ABG STANDARD HCO3 21.2 MMOL/L. (22.0-26.0); ABG TOTAL CO2 29.5 MMOL/L (23.0-31.0)
[2023-11-17 17:54] LABS: ABG pH (ARTERIAL) 7.156 UNITS (7.350-7.450)
[2023-11-17 17:55] LABS: ABG PARTIAL PRESSURE CO2 78.4 mmHg (35.0-45.0)
[2023-11-17] MEDS: PIPERACILLIN/TAZOBACTAM SOD 4.5 GM in D5W MINI-BAG PLUS 50 ML IV ONE (18:23)
[2023-11-17 19:02] LABS: MB/CK RELATIVE INDEX 5.45 (< OR =4)
[2023-11-17] MEDS: NS 1,000 ML IV ONE (19:43)
[2023-11-17 19:47] LABS: ABG BASE EXCESS 0.1 (-2.0-2.0); ABG HCO3 29.5 MMOL/L (22.0-26.0); ABG O2 SATURATION 98.3 % (95.0-99.0); ABG PARTIAL PRESSURE O2 129.6 mmHg (75.0-100.0); ABG STANDARD HCO3 24.6 MMOL/L. (22.0-26.0); ABG TOTAL CO2 31.6 MMOL/L (23.0-31.0)
[2023-11-17 19:48] LABS: ABG PARTIAL PRESSURE CO2 69.9 mmHg (35.0-45.0); ABG pH (ARTERIAL) 7.243 UNITS (7.350-7.450)
[2023-11-17] MEDS ORDERED: MOM 30ML SUSPENSION UDC PO PRN (21:10)
[2023-11-17] MEDS: cefTRIAXone SOD 1 GM in D5W MINI-BAG PLUS 50 ML IV SCH (21:56)
[2023-11-17 22:05] LABS: PROCALCITONIN 0.07 ng/ml
[2023-11-17] MEDS ORDERED: PRED5TA PO (22:26)
[2023-11-17] MEDS ORDERED: ALBU2.5V10 INH (22:26)
[2023-11-17] MEDS ORDERED: TRIA37.5 PO (22:26)
[2023-11-17] MEDS ORDERED: HOME MED LIST COMPLETE! XX SCH (22:30)
[2023-11-17 23:00] VITALS: BP 123/81; TEMP 98.7; O2SAT 99
[2023-11-17] MEDS: AZITHROMYCIN INJ 500 MG, VIAL MATE ADAPTER 1 EACH in D5W 250 ML IV SCH (23:57)
[2023-11-18] VITALS (13 sets, daily range): BP systolic 112–138; BP diastolic 59–71; TEMP 97–98.9; O2SAT 92–100
[2023-11-18] MEDS: IPRATROPIUM 0.5MG/ALBUTEROL 2.5MG INH SOL UD 3ML (DUONEB) INH PRN (00:57)
[2023-11-18 01:03] LABS: VENOUS BASE EXCESS -0.4 (-2.0-2.0); VENOUS HCO3 27.9 MMOL/L (23.0-27.0); VENOUS O2 SATURATION 64.2 % (60.0-80.0); VENOUS PARTIAL PRESSURE CO2 61.3 mmHg (38.0-50.0); VENOUS PARTIAL PRESSURE O2 31.8 mmHg (30.0-50.0); VENOUS PH 7.276 UNITS (7.330-7.430); VENOUS STANDARD HCO3 23.3 MMOL/L; VENOUS TOTAL CO2 29.8 MMOL/L (24.0-28.0)
[2023-11-18 05:04] LABS: HEMATOCRIT 45.6 % (36.0-47.0); HEMOGLOBIN 14.1 g/dl (12.0-15.5); MEAN CORPUSCULAR HEMOGLOBIN 31.6 pg (27.0-33.0); MEAN CORPUSCULAR HGB CONC 30.9 g/dl (32.0-36.5); MEAN CORPUSCULAR VOLUME 102.2 fl (80.0-96.0); PLATELET COUNT, AUTOMATED 237 10^3/uL (150-450); RED BLOOD COUNT 4.46 10^6/uL (4.00-5.40); WHITE BLOOD COUNT 5.8 10^3/uL (4.0-10.0)
[2023-11-18] MEDS ORDERED: FLUTICASONE PROP 0.05% NASAL SPRAY 16 GM (FLONASE) NARES PRN (05:10)
[2023-11-18] MEDS ORDERED: LR 1,000 ML IV SCH (05:10)
[2023-11-18 05:26] LABS: CREATININE FOR GFR 1.86 MG/DL (0.55-1.30); GLOMERULAR FILTRATION RATE 27.9 (>39); MAGNESIUM LEVEL 1.8 MG/DL (1.8-2.4); POTASSIUM SERUM 6.2 MMOL/L (3.5-5.1)
[2023-11-18] MEDS: HumuLIN R (REGULAR) INSULIN (NovoLIN R) **100U/ML** PER UNIT IV STA (05:50)
[2023-11-18] MEDS: DEXTROSE 50% 50ML SYRINGE IV STA (05:50)
[2023-11-18 05:59] LABS: URIC ACID 10.3 MG/DL (3.1-7.8)
[2023-11-18] MEDS: CALCIUM GLUCONATE 1,000 MG in D5W MINI-BAG PLUS 100 ML IV ONE ×2 (05:59→11:07)
[2023-11-18] MEDS: methylPREDNISolone 125MG 2ML VIAL IV SCH (06:00)
[2023-11-18] MEDS ORDERED: ALBUTEROL SULFATE 2.5MG/0.5ML INH NEB SOLN INH PRN (06:25)
[2023-11-18] MEDS: HEPARIN SOD (PORCINE) 5000UNITS/ML 1ML VIAL/SYRINGE SC SCH (08:15)
[2023-11-18] MEDS ORDERED: predniSONE 5 MG TAB PO SCH (09:00)
[2023-11-18] MEDS: PANTOPRAZOLE 40MG TAB (PROTONIX) PO SCH (09:19)
[2023-11-18 11:29] LABS: POTASSIUM SERUM 5.2 MMOL/L (3.5-5.1)
[2023-11-18] MEDS: PATIROMER SORBITEX CALCIUM 8.4 GM POWDER PACKET (VELTASSA) PO ONE (12:17)
[2023-11-18 14:54] LABS: ALBUMIN 3.4 G/DL (3.2-5.2); BILIRUBIN,TOTAL 1.1 MG/DL (0.3-1.2); CALCIUM LEVEL 9.8 MG/DL (8.3-10.6); CREATININE FOR GFR 1.74 MG/DL (0.55-1.30); GLOMERULAR FILTRATION RATE 30.1 (>39); TOTAL PROTEIN 6.4 G/DL (5.7-8.2)
[2023-11-18] MEDS: ACETAMINOPHEN TAB 650MG DOSE (2X325MG) PO PRN (16:49)
[2023-11-18] MEDS: CETIRIZINE (ZyrTEC) 10 MG TAB PO SCH (22:09)
[2023-11-19 04:00] VITALS: BP 133/80; TEMP 97.5; O2SAT 95
[2023-11-19] MEDS: CALCIUM GLUCONATE 1,000 MG in D5W MINI-BAG PLUS 100 ML IV ONE ×2 (06:03→13:36)
[2023-11-19 07:04] VITALS: BP 135/87; O2SAT 95
[2023-11-19 07:33] VITALS: TEMP 97.5
[2023-11-19] MEDS: methylPREDNISolone 40MG 1ML VIAL IV SCH (08:56)
[2023-11-19 12:00] VITALS: BP 141/81; TEMP 97.7; O2SAT 95
[2023-11-19 13:05] LABS: BASO % 0.2 % (0.0-1.0); HEMATOCRIT 48.3 % (36.0-47.0); HEMOGLOBIN 14.6 g/dl (12.0-15.5); LYMPH # 0.3 10^3/uL (1.5-5.0); LYMPH % 2.4 % (24.0-44.0); MEAN CORPUSCULAR HEMOGLOBIN 31.5 pg (27.0-33.0); MEAN CORPUSCULAR HGB CONC 30.2 g/dl (32.0-36.5); MEAN CORPUSCULAR VOLUME 104.3 fl (80.0-96.0); MONO # 0.4 10^3/uL (0.0-0.8); MONO % 3.4 % (2.0-8.0); NEUTROPHILS # 11.6 10^3/uL (1.5-8.5); PLATELET COUNT, AUTOMATED 244 10^3/uL (150-450); RED BLOOD COUNT 4.63 10^6/uL (4.00-5.40); WHITE BLOOD COUNT 12.5 10^3/uL (4.0-10.0)
[2023-11-19 13:31] LABS: CALCIUM LEVEL 9.2 MG/DL (8.3-10.6); CREATININE FOR GFR 1.93 MG/DL (0.55-1.30); GLOMERULAR FILTRATION RATE 26.7 (>39); POTASSIUM SERUM 5.3 MMOL/L (3.5-5.1)
[2023-11-19 14:45] LABS: ABG BASE EXCESS -4.1 (-2.0-2.0); ABG HCO3 26.6 MMOL/L (22.0-26.0); ABG O2 SATURATION 96.9 % (95.0-99.0); ABG PARTIAL PRESSURE O2 94.2 mmHg (75.0-100.0); ABG STANDARD HCO3 21.1 MMOL/L. (22.0-26.0)
[2023-11-19 14:46] LABS: ABG PARTIAL PRESSURE CO2 76.8 mmHg (35.0-45.0); ABG pH (ARTERIAL) 7.158 UNITS (7.350-7.450)
[2023-11-19] MEDS: PATIROMER SORBITEX CALCIUM 8.4 GM POWDER PACKET (VELTASSA) PO ONE (16:16)
[2023-11-19] MEDS: SOD POLYSTYRENE SULFONATE SUSP 30GM 120ML ENEMA PR ONE (17:05)
[2023-11-19 18:25] LABS: ABG BASE EXCESS -1.2 (-2.0-2.0); ABG HCO3 25.9 MMOL/L (22.0-26.0); ABG O2 SATURATION 95.1 % (95.0-99.0); ABG PARTIAL PRESSURE CO2 52.4 mmHg (35.0-45.0); ABG PARTIAL PRESSURE O2 71.6 mmHg (75.0-100.0); ABG STANDARD HCO3 23.4 MMOL/L. (22.0-26.0); ABG TOTAL CO2 27.5 MMOL/L (23.0-31.0); ABG pH (ARTERIAL) 7.311 UNITS (7.350-7.450)
[2023-11-19 20:00] VITALS: BP 130/64; TEMP 97.7; O2SAT 94
[2023-11-20 03:29] VITALS: BP 106/62; TEMP 97.3; O2SAT 92
[2023-11-20 06:21] LABS: BASO % 0.2 % (0.0-1.0); HEMATOCRIT 43.3 % (36.0-47.0); HEMOGLOBIN 13.8 g/dl (12.0-15.5); LYMPH % 10.3 % (24.0-44.0); MEAN CORPUSCULAR HEMOGLOBIN 31.7 pg (27.0-33.0); MEAN CORPUSCULAR HGB CONC 31.9 g/dl (32.0-36.5); MEAN CORPUSCULAR VOLUME 99.3 fl (80.0-96.0); MONO # 1.2 10^3/uL (0.0-0.8); MONO % 12.2 % (2.0-8.0); NEUTROPHILS # 7.6 10^3/uL (1.5-8.5); NEUTROPHILS % 76.7 % (36.0-66.0); PLATELET COUNT, AUTOMATED 237 10^3/uL (150-450); RED BLOOD COUNT 4.36 10^6/uL (4.00-5.40); WHITE BLOOD COUNT 9.9 10^3/uL (4.0-10.0)
[2023-11-20 06:45] LABS: CALCIUM LEVEL 9.5 MG/DL (8.3-10.6); CREATININE FOR GFR 1.62 MG/DL (0.55-1.30); GLOMERULAR FILTRATION RATE 32.7 (>39); POTASSIUM SERUM 4.6 MMOL/L (3.5-5.1)
[2023-11-20 08:52] VITALS: BP 116/72; O2SAT 93
[2023-11-20 10:27] LABS: ABG BASE EXCESS 2.9 (-2.0-2.0); ABG HCO3 31.2 MMOL/L (22.0-26.0); ABG O2 SATURATION 94.5 % (95.0-99.0); ABG PARTIAL PRESSURE O2 74.3 mmHg (75.0-100.0); ABG TOTAL CO2 33.1 MMOL/L (23.0-31.0); ABG pH (ARTERIAL) 7.309 UNITS (7.350-7.450)
[2023-11-20 10:28] LABS: ABG PARTIAL PRESSURE CO2 63.5 mmHg (35.0-45.0)
[2023-11-20 11:54] VITALS: BP 118/68; TEMP 97.3; O2SAT 89
[2023-11-20] MEDS: MIDODRINE 5 MG TAB PO ONE (16:04)
[2023-11-20] MEDS: CEFDINIR 300 MG CAP (OMNICEF) PO SCH (16:04)
[2023-11-20] MEDS: FUROSEMIDE 40MG/4ML VIAL IV ONE (16:05)
[2023-11-20 20:23] VITALS: BP 116/73; TEMP 97.5; O2SAT 95
[2023-11-21] VITALS (9 sets, daily range): BP systolic 112–123; BP diastolic 69–77; TEMP 96.8–97.3; O2SAT 84–95
[2023-11-21 07:17] LABS: BASO % 0.2 % (0.0-1.0); EOS % 0.1 % (0.0-3.0); HEMATOCRIT 46.4 % (36.0-47.0); HEMOGLOBIN 14.7 g/dl (12.0-15.5); LYMPH % 9.3 % (24.0-44.0); MEAN CORPUSCULAR HEMOGLOBIN 31.2 pg (27.0-33.0); MEAN CORPUSCULAR HGB CONC 31.7 g/dl (32.0-36.5); MEAN CORPUSCULAR VOLUME 98.5 fl (80.0-96.0); MONO # 1.4 10^3/uL (0.0-0.8); MONO % 12.4 % (2.0-8.0); NEUTROPHILS # 8.6 10^3/uL (1.5-8.5); NEUTROPHILS % 77.5 % (36.0-66.0); PLATELET COUNT, AUTOMATED 239 10^3/uL (150-450); RED BLOOD COUNT 4.71 10^6/uL (4.00-5.40); WHITE BLOOD COUNT 11.1 10^3/uL (4.0-10.0)
[2023-11-21 07:46] LABS: CALCIUM LEVEL 9.5 MG/DL (8.3-10.6); CREATININE FOR GFR 1.59 MG/DL (0.55-1.30); GLOMERULAR FILTRATION RATE 33.4 (>39); POTASSIUM SERUM 4.2 MMOL/L (3.5-5.1)
[2023-11-21] MEDS: MIDODRINE 5 MG TAB PO SCH (08:00)
[2023-11-21] MEDS: FUROSEMIDE 40MG/4ML VIAL IV SCH ×2 (08:34→16:49)
[2023-11-21] MEDS: METOPROLOL SUCC *XL* 25MG TAB (TopROL *XL*) PO SCH (11:55)
[2023-11-21 12:02] LABS: FREE T4 0.93 NG/DL (0.89-1.76); THYROID STIMULATING HORMONE 3.19 uIU/ML (0.55-4.78)
[2023-11-21 12:05] LABS: FREE T3 1.8 PG/ML (2.3-4.2)
[2023-11-21] MEDS: FUROSEMIDE 40MG/4ML VIAL IV ONE (13:12)
[2023-11-21] MEDS: predniSONE 20 MG TAB PO ONE (13:55)
[2023-11-21 18:25] LABS: IONIZED CALCIUM 4.1 MG/DL (4.5-5.3)
[2023-11-21 19:01] LABS: BLOOD UREA NITROGEN 45 MG/DL (9-23); CALCIUM LEVEL 8.8 MG/DL (8.3-10.6); CARBON DIOXIDE LEVEL > 40.0 MMOL/L (20-31); CHLORIDE LEVEL 95 MMOL/L (98-107); CREATININE FOR GFR 1.65 MG/DL (0.55-1.30); GLUCOSE, FASTING 128 MG/DL (74-106); MAGNESIUM LEVEL 1.7 MG/DL (1.8-2.4); POTASSIUM SERUM 4.3 MMOL/L (3.5-5.1); SODIUM LEVEL 138 MMOL/L (136-145)
[2023-11-22 04:12] VITALS: BP 116/63; TEMP 97.3; O2SAT 94
[2023-11-22 06:21] LABS: BASO % 0.2 % (0.0-1.0); HEMATOCRIT 50.7 % (36.0-47.0); HEMOGLOBIN 15.8 g/dl (12.0-15.5); LYMPH # 0.6 10^3/uL (1.5-5.0); LYMPH % 5.3 % (24.0-44.0); MEAN CORPUSCULAR HEMOGLOBIN 31.2 pg (27.0-33.0); MEAN CORPUSCULAR HGB CONC 31.2 g/dl (32.0-36.5); MEAN CORPUSCULAR VOLUME 100.2 fl (80.0-96.0); MONO # 0.9 10^3/uL (0.0-0.8); MONO % 7.8 % (2.0-8.0); NEUTROPHILS # 9.7 10^3/uL (1.5-8.5); NEUTROPHILS % 86.2 % (36.0-66.0); PLATELET COUNT, AUTOMATED 246 10^3/uL (150-450); RED BLOOD COUNT 5.06 10^6/uL (4.00-5.40); WHITE BLOOD COUNT 11.2 10^3/uL (4.0-10.0)
[2023-11-22 06:49] LABS: BLOOD UREA NITROGEN 46 MG/DL (9-23); CALCIUM LEVEL 9.2 MG/DL (8.3-10.6); CARBON DIOXIDE LEVEL > 40.0 MMOL/L (20-31); CHLORIDE LEVEL 93 MMOL/L (98-107); CREATININE FOR GFR 1.69 MG/DL (0.55-1.30); GLOMERULAR FILTRATION RATE 31.2 (>39); GLUCOSE, FASTING 106 MG/DL (74-106); SODIUM LEVEL 142 MMOL/L (136-145)
[2023-11-22] MEDS: predniSONE 10MG TAB PO SCH (08:28)
[2023-11-22] MEDS: IPRATROPIUM 0.5MG/ALBUTEROL 2.5MG INH SOL UD 3ML (DUONEB) INH SCH (11:18)
[2023-11-22 11:48] LABS: MAGNESIUM LEVEL 1.7 MG/DL (1.8-2.4)
[2023-11-22 12:00] VITALS: BP 112/67; TEMP 97.2; O2SAT 92
[2023-11-22 12:05] LABS: ABG BASE EXCESS 15.3 (-2.0-2.0); ABG HCO3 46.3 MMOL/L (22.0-26.0); ABG O2 SATURATION 95.9 % (95.0-99.0); ABG PARTIAL PRESSURE CO2 86.4 mmHg (35.0-45.0); ABG STANDARD HCO3 39.3 MMOL/L. (22.0-26.0); ABG pH (ARTERIAL) 7.347 UNITS (7.350-7.450)
[2023-11-22] MEDS: MAG SULF 1GM/100ML (MAG RUN) 1 GM in IV 1 EA IV ONE (12:21)
[2023-11-22 14:30] VITALS: O2SAT 89
[2023-11-22 15:13] VITALS: O2SAT 90
[2023-11-22 18:39] VITALS: O2SAT 91
[2023-11-22 20:12] VITALS: BP 101/71; TEMP 97; O2SAT 91
[2023-11-23 03:44] VITALS: BP 134/83; TEMP 97.3; O2SAT 96
[2023-11-23 04:43] LABS: ABG BASE EXCESS 11.5 (-2.0-2.0); ABG HCO3 39.5 MMOL/L (22.0-26.0); ABG O2 SATURATION 98.6 % (95.0-99.0); ABG PARTIAL PRESSURE O2 123.6 mmHg (75.0-100.0); ABG STANDARD HCO3 35.4 MMOL/L. (22.0-26.0); ABG TOTAL CO2 41.5 MMOL/L (23.0-31.0); ABG pH (ARTERIAL) 7.405 UNITS (7.350-7.450)
[2023-11-23 04:45] LABS: ABG PARTIAL PRESSURE CO2 64.5 mmHg (35.0-45.0)
[2023-11-23 06:43] LABS: BASO % 0.2 % (0.0-1.0); EOS % 0.2 % (0.0-3.0); HEMATOCRIT 49.2 % (36.0-47.0); HEMOGLOBIN 15.7 g/dl (12.0-15.5); LYMPH # 1.2 10^3/uL (1.5-5.0); LYMPH % 8.7 % (24.0-44.0); MEAN CORPUSCULAR HEMOGLOBIN 31.1 pg (27.0-33.0); MEAN CORPUSCULAR HGB CONC 31.9 g/dl (32.0-36.5); MEAN CORPUSCULAR VOLUME 97.4 fl (80.0-96.0); MONO # 1.4 10^3/uL (0.0-0.8); MONO % 10.3 % (2.0-8.0); NEUTROPHILS # 10.6 10^3/uL (1.5-8.5); NEUTROPHILS % 80.1 % (36.0-66.0); PLATELET COUNT, AUTOMATED 236 10^3/uL (150-450); RED BLOOD COUNT 5.05 10^6/uL (4.00-5.40); WHITE BLOOD COUNT 13.3 10^3/uL (4.0-10.0)
[2023-11-23 07:09] LABS: BLOOD UREA NITROGEN 49 MG/DL (9-23); CALCIUM LEVEL 9.6 MG/DL (8.3-10.6); CARBON DIOXIDE LEVEL > 40.0 MMOL/L (20-31); CHLORIDE LEVEL 92 MMOL/L (98-107); CREATININE FOR GFR 1.66 MG/DL (0.55-1.30); GLOMERULAR FILTRATION RATE 31.8 (>39); GLUCOSE, FASTING 92 MG/DL (74-106); POTASSIUM SERUM 3.7 MMOL/L (3.5-5.1); SODIUM LEVEL 141 MMOL/L (136-145)
[2023-11-23 08:00] VITALS: BP 129/81; TEMP 97.3; O2SAT 91
[2023-11-23] MEDS: MAGNESIUM OXIDE 400MG TAB (MAG-OX) PO SCH (08:35)
[2023-11-23 08:36] VITALS: BP 124/81
[2023-11-23] MEDS: METOPROLOL SUCC *XL* 12.5MG PER 1/2 TAB (TopROL *XL*) PO SCH (08:36)
[2023-11-23 12:00] VITALS: BP 127/79; TEMP 97.3; O2SAT 94
[2023-11-23 15:43] VITALS: O2SAT 92
[2023-11-23 19:30] VITALS: BP 121/90; TEMP 97.5; O2SAT 93
[2023-11-23 20:12] LABS: URINE STREP PNEUMONIAE ANTIGEN NOT DETECTED (NOT DETECT)
[2023-11-24 03:50] VITALS: BP 141/80; TEMP 97.7; O2SAT 90
[2023-11-24 06:20] LABS: BASO % 0.2 % (0.0-1.0); EOS % 0.1 % (0.0-3.0); HEMATOCRIT 50.3 % (36.0-47.0); LYMPH # 0.8 10^3/uL (1.5-5.0); LYMPH % 5.8 % (24.0-44.0); MEAN CORPUSCULAR HEMOGLOBIN 31.2 pg (27.0-33.0); MEAN CORPUSCULAR HGB CONC 31.8 g/dl (32.0-36.5); MEAN CORPUSCULAR VOLUME 98.1 fl (80.0-96.0); MONO # 1.2 10^3/uL (0.0-0.8); MONO % 9.2 % (2.0-8.0); NEUTROPHILS # 11.1 10^3/uL (1.5-8.5); PLATELET COUNT, AUTOMATED 231 10^3/uL (150-450); RED BLOOD COUNT 5.13 10^6/uL (4.00-5.40); WHITE BLOOD COUNT 13.2 10^3/uL (4.0-10.0)
[2023-11-24 06:42] LABS: CALCIUM LEVEL 9.4 MG/DL (8.3-10.6); CREATININE FOR GFR 1.5 MG/DL (0.55-1.30); GLOMERULAR FILTRATION RATE 35.8 (>39); POTASSIUM SERUM 3.8 MMOL/L (3.5-5.1)
[2023-11-24 13:00] VITALS: BP 136/60; TEMP 97.5; O2SAT 95
[2023-11-24 19:26] VITALS: O2SAT 94
[2023-11-24 19:45] VITALS: BP 117/77; TEMP 96.9
[2023-11-25 04:00] VITALS: BP 140/89; TEMP 96.9; O2SAT 92
[2023-11-25 12:00] VITALS: BP 115/75; TEMP 97.3; O2SAT 92
[2023-11-25 20:30] VITALS: BP 120/77; TEMP 97.2; O2SAT 93
[2023-11-26 04:02] VITALS: BP 125/83; TEMP 97; O2SAT 95
[2023-11-26 12:00] VITALS: BP 110/64; TEMP 97.3; O2SAT 94
[2023-11-26 20:15] VITALS: BP 112/71; TEMP 97.3; O2SAT 93
[2023-11-27 03:36] VITALS: BP 116/74; TEMP 97.5; O2SAT 92
[2023-11-27 12:00] VITALS: BP 118/76; TEMP 97.7; O2SAT 97
[2023-11-27 21:01] VITALS: BP 119/72; TEMP 97.7; O2SAT 18; O2SAT 94
[2023-11-28 03:47] VITALS: BP 122/73; TEMP 98.6; O2SAT 95
[2023-11-28] MEDS: FUROSEMIDE 20 MG TAB PO ONE (11:52)
[2023-11-28 12:00] VITALS: BP 121/70; TEMP 97.2; O2SAT 93
[2023-11-28 20:00] VITALS: BP 139/74; TEMP 97.7; O2SAT 93
[2023-11-29 04:00] VITALS: BP 141/76; TEMP 97.6; O2SAT 96
[2023-11-29 11:16] LABS: BASO # 0.2 10^3/uL (0.0-0.2); BASO % 1.1 % (0.0-1.0); EOS # 0.2 10^3/uL (0.0-0.5); EOS % 1.2 % (0.0-3.0); HEMATOCRIT 51.7 % (36.0-47.0); HEMOGLOBIN 15.8 g/dl (12.0-15.5); LYMPH # 1.7 10^3/uL (1.5-5.0); LYMPH % 11.7 % (24.0-44.0); MEAN CORPUSCULAR HEMOGLOBIN 31.2 pg (27.0-33.0); MEAN CORPUSCULAR HGB CONC 30.6 g/dl (32.0-36.5); MEAN CORPUSCULAR VOLUME 102.2 fl (80.0-96.0); MONO # 1.3 10^3/uL (0.0-0.8); MONO % 8.7 % (2.0-8.0); NEUTROPHILS # 10.6 10^3/uL (1.5-8.5); NEUTROPHILS % 72.8 % (36.0-66.0); PLATELET COUNT, AUTOMATED 222 10^3/uL (150-450); RED BLOOD COUNT 5.06 10^6/uL (4.00-5.40); WHITE BLOOD COUNT 14.6 10^3/uL (4.0-10.0)
[2023-11-29 11:43] LABS: ALBUMIN 3.6 G/DL (3.2-5.2); BILIRUBIN,TOTAL 1.1 MG/DL (0.3-1.2); CALCIUM LEVEL 9.2 MG/DL (8.3-10.6); CREATININE FOR GFR 1.42 MG/DL (0.55-1.30); GLOMERULAR FILTRATION RATE 38.1 (>39); POTASSIUM SERUM 4.2 MMOL/L (3.5-5.1); TOTAL PROTEIN 6.6 G/DL (5.7-8.2)
[2023-11-29 12:00] VITALS: BP 115/79; TEMP 97.5; O2SAT 94
[2023-11-29 15:33] LABS: ABG BASE EXCESS 7.7 (-2.0-2.0); ABG HCO3 32.6 MMOL/L (22.0-26.0); ABG O2 SATURATION 96.8 % (95.0-99.0); ABG PARTIAL PRESSURE CO2 45.7 mmHg (35.0-45.0); ABG STANDARD HCO3 31.5 MMOL/L. (22.0-26.0); ABG pH (ARTERIAL) 7.471 UNITS (7.350-7.450)
[2023-11-29 20:30] VITALS: BP 134/93; TEMP 97.9; O2SAT 92
[2023-11-30 04:11] VITALS: BP 130/73; TEMP 97.3; O2SAT 91
[2023-11-30 12:00] VITALS: BP 115/70; TEMP 97.5; O2SAT 93
[2023-11-30 20:03] VITALS: BP 116/72; TEMP 97.2; O2SAT 93
[2023-12-01 04:14] VITALS: BP 117/70; TEMP 97.2; O2SAT 90
[2023-12-01 12:00] VITALS: BP 114/71; TEMP 97.3; O2SAT 93
[2023-12-01] MEDS ORDERED: PRED10TA2 PO (17:35)
[2023-12-01 18:11] LABS: BASO # 0.1 10^3/uL (0.0-0.2); BASO % 0.9 % (0.0-1.0); EOS # 0.1 10^3/uL (0.0-0.5); EOS % 0.6 % (0.0-3.0); HEMATOCRIT 47.2 % (36.0-47.0); HEMOGLOBIN 14.8 g/dl (12.0-15.5); LYMPH # 0.7 10^3/uL (1.5-5.0); LYMPH % 5.6 % (24.0-44.0); MEAN CORPUSCULAR HEMOGLOBIN 31.4 pg (27.0-33.0); MEAN CORPUSCULAR HGB CONC 31.4 g/dl (32.0-36.5); MEAN CORPUSCULAR VOLUME 100.2 fl (80.0-96.0); MONO # 0.8 10^3/uL (0.0-0.8); NEUTROPHILS # 10.8 10^3/uL (1.5-8.5); PLATELET COUNT, AUTOMATED 234 10^3/uL (150-450); RED BLOOD COUNT 4.71 10^6/uL (4.00-5.40); WHITE BLOOD COUNT 13.2 10^3/uL (4.0-10.0)
[2023-12-01 18:25] LABS: C REACTIVE PROTEIN QUANTITATIV < 0.40 MG/DL (<1.0)
[2023-12-01 18:26] LABS: BLOOD UREA NITROGEN 37 MG/DL (9-23); CALCIUM LEVEL 9.3 MG/DL (8.3-10.6); CARBON DIOXIDE LEVEL 36 MMOL/L (20-31); CHLORIDE LEVEL 98 MMOL/L (98-107); CREATININE FOR GFR 1.48 MG/DL (0.55-1.30); GLOMERULAR FILTRATION RATE 36.3 (>39); GLUCOSE, FASTING 142 MG/DL (74-106); POTASSIUM SERUM 4.7 MMOL/L (3.5-5.1); SODIUM LEVEL 136 MMOL/L (136-145)
[2023-12-01 18:39] LABS: PROCALCITONIN 0.08 ng/ml
[2023-12-01 18:47] LABS: ERYTHROCYTE SEDIMENTATION RATE 13 mm/hr (0-30)
[2023-12-01 20:21] VITALS: BP 109/63; TEMP 97.3; O2SAT 93
[2023-12-02 04:19] VITALS: BP 122/78; TEMP 97.2; O2SAT 87
[2023-12-02 07:30] VITALS: O2SAT 95
[2023-12-02] MEDS: predniSONE 5 MG TAB PO SCH (08:53)
[2023-12-02 12:00] VITALS: BP 105/65; TEMP 97.7; O2SAT 94
[2023-12-02 13:24] VITALS: O2SAT 93
== END 2023-12-02 16:30 | DRG 196 ==
LOC: M ED 16:26 → M ED INP 21:08 → M ICU 22:40 → M MSPAV 11-18 18:27
PROVIDERS: ADMIT Internal Medicine; ATTEND General Practice
PROC: B246ZZZ Ultrasonography of Right and Left Heart (ICD-10-PCS; principal; 2023-11-18)
DX: J84.9 Interstitial pulmonary disease, unspecified (principal); J96.21 Acute and chronic respiratory failure with hypoxia; J96.22 Acute and chronic respiratory failure with hypercapnia; G93.41 Metabolic encephalopathy; I50.33 Acute on chronic diastolic (congestive) heart failure; E87.4 Mixed disorder of acid-base balance; N17.9 Acute kidney failure, unspecified; I24.89 Other forms of acute ischemic heart disease; I13.0 Hypertensive heart and chronic kidney disease with heart failure and stage 1 through stage 4 chronic kidney disease, or unspecified chronic kidney disease; Z68.42 Body mass index [BMI] 45.0-49.9, adult; R41.0 Disorientation, unspecified; Z99.81 Dependence on supplemental oxygen; E66.01 Morbid (severe) obesity due to excess calories; Z66 Do not resuscitate; K44.9 Diaphragmatic hernia without obstruction or gangrene; R26.89 Other abnormalities of gait and mobility; D75.1 Secondary polycythemia; N18.30 Chronic kidney disease, stage 3 unspecified; E87.5 Hyperkalemia; R51.9 Headache, unspecified; Z79.52 Long term (current) use of systemic steroids; Z79.899 Other long term (current) drug therapy; Z88.6 Allergy status to analgesic agent

== ENCOUNTER → 2024-02-29 | Outpatient (CLI) | payer MEDICARE ==
[~2024-02-29] MED LIST changes: +ALBU2.5V10 INH; +PRED5TA PO; +TRIA37.5 PO
== END ==
LOC: M PLAIMG 14:05
PROVIDERS: ATTEND Internal Medicine Pulmonary Disease
DX: R91.8 Other nonspecific abnormal finding of lung field (principal)

== ENCOUNTER 2024-03-26 13:18 | Emergency (ER) | payer MEDICARE ==
[~2024-03-26] VITALS: Ht 152.4 cm; Wt 118.2 kg
[2024-03-26 13:24] VITALS: TEMP 97.2
[2024-03-26 14:17] LABS: BASO # 0.1 10^3/uL (0.0-0.2); BASO % 0.7 % (0.0-1.0); EOS # 0.1 10^3/uL (0.0-0.5); EOS % 1.1 % (0.0-3.0); HEMATOCRIT 47.5 % (36.0-47.0); LYMPH # 1.3 10^3/uL (1.5-5.0); LYMPH % 15.2 % (24.0-44.0); MEAN CORPUSCULAR HEMOGLOBIN 32.5 pg (27.0-33.0); MEAN CORPUSCULAR HGB CONC 31.6 g/dl (32.0-36.5); MONO # 0.4 10^3/uL (0.0-0.8); MONO % 4.5 % (2.0-8.0); NEUTROPHILS # 6.8 10^3/uL (1.5-8.5); NEUTROPHILS % 77.6 % (36.0-66.0); PLATELET COUNT, AUTOMATED 327 10^3/uL (150-450); RED BLOOD COUNT 4.61 10^6/uL (4.00-5.40); WHITE BLOOD COUNT 8.7 10^3/uL (4.0-10.0)
[2024-03-26 14:21] LABS: ABG HCO3 31.5 MMOL/L (22.0-26.0); ABG O2 SATURATION 96.1 % (95.0-99.0); ABG PARTIAL PRESSURE CO2 48.5 mmHg (35.0-45.0); ABG STANDARD HCO3 29.8 MMOL/L. (22.0-26.0)
[2024-03-26 14:31] LABS: PROTHROMBIN TIME 13.5 SECONDS (12.5-14.5)
[2024-03-26 14:41] LABS: C REACTIVE PROTEIN QUANTITATIV 0.4 MG/DL (<1.0)
[2024-03-26 14:43] LABS: ALBUMIN 3.8 G/DL (3.2-5.2); BILIRUBIN,DIRECT 0.2 MG/DL (<0.4); BILIRUBIN,TOTAL 0.6 MG/DL (0.3-1.2); CALCIUM LEVEL 10.3 MG/DL (8.3-10.6); CK-MB VALUE MASS 1.2 NG/ML (<3.6); CREATININE FOR GFR 1.64 MG/DL (0.55-1.30); GLOMERULAR FILTRATION RATE 32.3 (>39); MB/CK RELATIVE INDEX 1.16 (< OR =4); POTASSIUM SERUM 4.4 MMOL/L (3.5-5.1); TOTAL PROTEIN 7.8 G/DL (5.7-8.2)
[2024-03-26 14:44] LABS: THYROXINE (T4) 8.6 UG/DL (4.5-10.9)
[2024-03-26 14:45] LABS: THYROID STIMULATING HORMONE 3.902 uIU/ML (0.55-4.78)
[2024-03-26] MEDS: NORCO, ANEXSIA 5/325MG TABLET (HYDROcodone/ACETAMINOPHEN) PO ONE (14:57)
[2024-03-26 21:21] VITALS: BP 122/78; O2SAT 94
[2024-03-26] MEDS ORDERED: HYDR-3713 PO (21:31)
[2024-03-26] MEDS: NORCO 5/325MG TABLET (HOME DOSE PACK) PO ONE (21:39)
== END 2024-03-26 21:43 | disposition home or self-care (01) ==
LOC: M ED 13:18
DX: S22.050A Wedge compression fracture of T5-T6 vertebra, initial encounter for closed fracture (principal); R94.31 Abnormal electrocardiogram [ECG] [EKG]; Y92.9 Unspecified place or not applicable; Y93.9 Activity, unspecified; Y99.9 Unspecified external cause status; I10 Essential (primary) hypertension; Z88.8 Allergy status to other drugs, medicaments and biological substances; Z79.51 Long term (current) use of inhaled steroids; Z79.1 Long term (current) use of non-steroidal anti-inflammatories (NSAID); Z79.52 Long term (current) use of systemic steroids; Z79.899 Other long term (current) drug therapy
CPT/HCPCS: 36415; 36600; 71045; 72072; 72146; 80047; 80048; 80076; 82550; 82553; 82803; 83880; 84436; 84443; 84484; 85025; 85610; 86140; 87040; 87486; 87581; 87633; 87798; 93005; 93041; 94760; 99285; G0463

== ENCOUNTER → 2024-04-17 | Outpatient (CLI) | payer MEDICARE ==
[~2024-04-17] MED LIST changes: +HYDR-3713 PO
[2024-04-17 15:31] LABS: BASO # 0.1 10^3/uL (0.0-0.2); BASO % 0.6 % (0.0-1.0); EOS # 0.3 10^3/uL (0.0-0.5); EOS % 2.4 % (0.0-3.0); HEMATOCRIT 46.7 % (36.0-47.0); HEMOGLOBIN 14.5 g/dl (12.0-15.5); LYMPH # 1.4 10^3/uL (1.5-5.0); LYMPH % 13.3 % (24.0-44.0); MEAN CORPUSCULAR HEMOGLOBIN 31.9 pg (27.0-33.0); MEAN CORPUSCULAR VOLUME 102.9 fl (80.0-96.0); MONO # 0.9 10^3/uL (0.0-0.8); NEUTROPHILS % 74.7 % (36.0-66.0); PLATELET COUNT, AUTOMATED 332 10^3/uL (150-450); RED BLOOD COUNT 4.54 10^6/uL (4.00-5.40); WHITE BLOOD COUNT 10.7 10^3/uL (4.0-10.0)
[2024-04-17 15:33] LABS: ALBUMIN 3.8 G/DL (3.2-5.2); ALKALINE PHOSPHATASE 84 U/L (35-104); ALT/SGPT < 9 U/L (7.0-40); AST/SGOT 25 U/L (<34); BILIRUBIN,TOTAL 0.5 MG/DL (0.3-1.2); BLOOD UREA NITROGEN 33 MG/DL (9-23); CALCIUM LEVEL 9.7 MG/DL (8.3-10.6); CARBON DIOXIDE LEVEL 32 MMOL/L (20-31); CHLORIDE LEVEL 100 MMOL/L (98-107); CREATININE FOR GFR 1.55 MG/DL (0.55-1.30); GLOMERULAR FILTRATION RATE 34.4 (>39); GLUCOSE, FASTING 116 MG/DL (74-106); POTASSIUM SERUM 4.6 MMOL/L (3.5-5.1); SODIUM LEVEL 141 MMOL/L (136-145); TOTAL PROTEIN 7.4 G/DL (5.7-8.2)
[2024-04-17 15:52] LABS: HEMOGLOBIN A1c 5.6 % (4.0-6.0)
== END ==
LOC: M PLALAB 11:58
PROVIDERS: ATTEND Nurse Practitioner Family
DX: I10 Essential (primary) hypertension (principal); R73.03 Prediabetes

== ENCOUNTER → 2024-05-16 | Outpatient (CLI) | payer MEDICARE | LOC: M PLAIMG 15:53 | PROVIDERS: ATTEND Nurse Practitioner Family | DX: M19.90 Unspecified osteoarthritis, unspecified site (principal) ==

== ENCOUNTER 2024-10-26 09:33 | Inpatient (IN) | payer MEDICARE ==
[~2024-10-26] VITALS: Ht 165.1 cm; Wt 97.4 kg
[~2024-10-26 09:33] MED LIST changes: +DOXY-442 PO; -DOXY100C82 PO
[2024-10-26 10:33] LABS: VENOUS BASE EXCESS 2.2 (-2.0-2.0); VENOUS HCO3 30.8 MMOL/L (23.0-27.0); VENOUS O2 SATURATION 76.5 % (60.0-80.0); VENOUS PARTIAL PRESSURE CO2 67.3 mmHg (38.0-50.0); VENOUS PARTIAL PRESSURE O2 47.4 mmHg (30.0-50.0); VENOUS PH 7.279 UNITS (7.330-7.430); VENOUS STANDARD HCO3 25.9 MMOL/L; VENOUS TOTAL CO2 32.9 MMOL/L (24.0-28.0)
[2024-10-26 10:45] LABS: BASO # 0.1 10^3/uL (0.0-0.2); BASO % 0.3 % (0.0-1.0); EOS # 0.0 10^3/uL (0.0-0.5); EOS % 0.1 % (0.0-3.0); LYMPH # 1.0 10^3/uL (1.5-5.0); LYMPH % 4.8 % (24.0-44.0); MONO # 1.6 10^3/uL (0.0-0.8); MONO % 8.0 % (2.0-8.0); NEUTROPHILS # 17.1 10^3/uL (1.5-8.5); NEUTROPHILS % 84.8 % (36.0-66.0); PLATELET COUNT, AUTOMATED 325 10^3/uL (150-450)
[2024-10-26 10:58] LABS: CPK CREATINE PHOSPHOKINASE 44 U/L (34-145)
[2024-10-26 10:59] LABS: ALT/SGPT < 9 U/L (7.0-40); AST/SGOT 27 U/L (<34); CALCIUM LEVEL 8.9 MG/DL (8.3-10.6); CARBON DIOXIDE LEVEL 29 MMOL/L (20-31); CHLORIDE LEVEL 90 MMOL/L (98-107); CREATININE FOR GFR 2.19 MG/DL (0.55-1.30); GLOMERULAR FILTRATION RATE 22.4 (>39); POTASSIUM SERUM 3.9 MMOL/L (3.5-5.1); SODIUM LEVEL 137 MMOL/L (136-145)
[2024-10-26 11:02] LABS: CK-MB VALUE MASS 1.9 NG/ML (<3.6); MB/CK RELATIVE INDEX 4.31 (< OR =4)
[2024-10-26 11:07] LABS: ABG BASE EXCESS 3.8 (-2.0-2.0); ABG HCO3 30.8 MMOL/L (22.0-26.0); ABG O2 SATURATION 95.2 % (95.0-99.0); ABG PARTIAL PRESSURE CO2 57.2 mmHg (35.0-45.0); ABG PARTIAL PRESSURE O2 84.5 mmHg (75.0-100.0); ABG STANDARD HCO3 27.8 MMOL/L. (22.0-26.0); ABG TOTAL CO2 32.6 MMOL/L (23.0-31.0); ABG pH (ARTERIAL) 7.349 UNITS (7.350-7.450)
[2024-10-26] MEDS: IPRATROPIUM 0.5 MG/ALBUTEROL 2.5 MG INH SOL UD 3 ML NEB PRN (11:09)
[2024-10-26] MEDS: NS (Normal Saline) 0.9% 1,710 ML in IV 1 EA IV STA (11:24)
[2024-10-26] MEDS: cefTRIAXone SOD 2 GM in DEXTROSE 5% (D5W) ADV/MINI-BAG 50 ML IV ONE (11:24)
[2024-10-26 12:01] LABS: CK-MB VALUE MASS 2.1 NG/ML (<3.6)
[2024-10-26 12:04] LABS: CPK CREATINE PHOSPHOKINASE 47.0 U/L (34-145); MB/CK RELATIVE INDEX 4.46 (< OR =4)
[2024-10-26 15:05] VITALS: BP 118/65; TEMP 96.8; O2SAT 93
[2024-10-26] MEDS: AZITHROMYCIN INJ 500 MG, VIAL MATE ADAPTER 1 EACH in NS 250 ML IV ONE (15:25)
[2024-10-26] MEDS ORDERED: MOM 30 ML SUSPENSION UDC PO PRN (15:50)
[2024-10-26] MEDS ORDERED: FURO20TA2 PO (16:09)
[2024-10-26] MEDS ORDERED: HOME MED LIST COMPLETE! XX SCH (16:10)
[2024-10-26] MEDS ORDERED: IPRATROPIUM 0.5 MG/ALBUTEROL 2.5 MG INH SOL UD 3 ML NEB PRN (16:10)
[2024-10-26] MEDS: guaiFENesin ER TABLET 600 MG TAB PO ONE (18:03)
[2024-10-26 19:51] VITALS: BP 108/70; TEMP 97; O2SAT 95
[2024-10-26] MEDS: IPRATROPIUM 0.5 MG/ALBUTEROL 2.5 MG INH SOL UD 3 ML NEB SCH (20:56)
[2024-10-26 21:03] VITALS: O2SAT 96
[2024-10-26] MEDS: HEPARIN SOD 5000 UNITS/ML 1 ML VIAL/SYRINGE SC SCH (23:02)
[2024-10-26] MEDS: BACTRIM 160MG/800MG DS TAB PO SCH (23:02)
[2024-10-27] VITALS (8 sets, daily range): BP systolic 110–122; BP diastolic 61–73; TEMP 97–97.3; O2SAT 90–96
[2024-10-27 06:06] LABS: PLATELET COUNT, AUTOMATED 286 10^3/uL (150-450)
[2024-10-27 06:43] LABS: KETONE, URINE AUTO RFX NEGATIVE (NEGATIVE); MUCUS, URINE RFX SMALL (NEGATIVE); NITRITE, URINE AUTO RFX NEGATIVE (NEGATIVE); RBC, URINE AUTO RFX 3 /HPF (0-3); SQUAM EPITHELIAL CELL UR AURFX 6 /HPF (0-6)
[2024-10-27 06:44] LABS: ALT/SGPT < 9 U/L (7.0-40); AST/SGOT 28 U/L (<34); CALCIUM LEVEL 8.8 MG/DL (8.3-10.6); CARBON DIOXIDE LEVEL 31 MMOL/L (20-31); CHLORIDE LEVEL 98 MMOL/L (98-107); CREATININE FOR GFR 1.81 MG/DL (0.55-1.30); GLOMERULAR FILTRATION RATE 28.1 (>39); MAGNESIUM LEVEL 1.8 MG/DL (1.8-2.4); POTASSIUM SERUM 4.1 MMOL/L (3.5-5.1); SODIUM LEVEL 143 MMOL/L (136-145)
[2024-10-27 06:56] LABS: LEUKOCYTE ESTERASE UR AUTO RFX 1+ (NEGATIVE); WBC, URINE AUTO RFX 22 /HPF (0-3)
[2024-10-27] MEDS ORDERED: cefTRIAXone SOD 2 GM in DEXTROSE 5% (D5W) ADV/MINI-BAG 50 ML IV SCH (09:00)
[2024-10-27 09:42] LABS: ABG BASE EXCESS 3.0 (-2.0-2.0); ABG HCO3 30.4 MMOL/L (22.0-26.0); ABG O2 SATURATION 94.1 % (95.0-99.0); ABG PARTIAL PRESSURE CO2 59.6 mmHg (35.0-45.0); ABG PARTIAL PRESSURE O2 73.4 mmHg (75.0-100.0); ABG STANDARD HCO3 27.1 MMOL/L. (22.0-26.0); ABG TOTAL CO2 32.2 MMOL/L (23.0-31.0); ABG pH (ARTERIAL) 7.325 UNITS (7.350-7.450)
[2024-10-27] MEDS: PANTOPRAZOLE 40MG VIAL IV SCH (10:07)
[2024-10-27] MEDS: cefTRIAXone SOD 2 GM in DEXTROSE 5% (D5W) ADV/MINI-BAG 50 ML IV SCH (10:07)
[2024-10-27] MEDS: guaiFENesin ER TABLET 600 MG TAB PO SCH (10:08)
[2024-10-27] MEDS: FUROSEMIDE 40 MG/4 ML VIAL IV ONE (10:58)
[2024-10-27] MEDS: ACETAMINOPHEN 325 MG TAB PO PRN (11:34)
[2024-10-27] MEDS: AZITHROMYCIN INJ 500 MG, VIAL MATE ADAPTER 1 EACH in NS 250 ML IV SCH (15:25)
[2024-10-27] MEDS: ACETAMINOPHEN 500 MG TAB PO SCH (17:00)
[2024-10-27] MEDS: LIDOCAINE 5% PATCH TD SCH (17:01)
[2024-10-27] MEDS: OLANZapine INTRAMUSCULAR 10MG VIAL IM PRN (23:08)
[2024-10-28] VITALS (16 sets, daily range): BP systolic 113–140; BP diastolic 68–94; TEMP 96–97.4; O2SAT 89–94
[2024-10-28 00:08] LABS: VENOUS BASE EXCESS 3.3 (-2.0-2.0); VENOUS HCO3 30.7 MMOL/L (23.0-27.0); VENOUS O2 SATURATION 98.4 % (60.0-80.0); VENOUS PARTIAL PRESSURE CO2 60.1 mmHg (38.0-50.0); VENOUS PARTIAL PRESSURE O2 123.4 mmHg (30.0-50.0); VENOUS PH 7.326 UNITS (7.330-7.430); VENOUS STANDARD HCO3 27.4 MMOL/L; VENOUS TOTAL CO2 32.5 MMOL/L (24.0-28.0)
[2024-10-28] MEDS: METOPROLOL 5 MG/5 ML VIAL IV SCH ×2 (02:15→05:36)
[2024-10-28 07:40] LABS: PLATELET COUNT, AUTOMATED 343 10^3/uL (150-450)
[2024-10-28 07:42] LABS: CALCIUM LEVEL 9.3 MG/DL (8.3-10.6); CARBON DIOXIDE LEVEL 31.0 MMOL/L (20-31); CHLORIDE LEVEL 99.0 MMOL/L (98-107); CREATININE FOR GFR 2.17 MG/DL (0.55-1.30); GLOMERULAR FILTRATION RATE 22.6 (>39); POTASSIUM SERUM 4.1 MMOL/L (3.5-5.1); SODIUM LEVEL 142.0 MMOL/L (136-145)
[2024-10-28 07:52] LABS: ATYPICAL LYMPH 2 % (0-5); LYMPHOCYTES 5 % (16-44); MONOCYTES 10 % (0-5); NEUTROPHILS 83 % (28-66); PLATELET ESTIMATE NORMAL (NORMAL)
[2024-10-28] MEDS: METOPROLOL TART 25 MG TABLET PO ONE (10:14)
[2024-10-28] MEDS ORDERED: DIGOXIN 0.0625 MG PER 1/2 TABLET PO ONE (11:00)
[2024-10-28] MEDS: DIGOXIN INJ 0.5 MG/2 ML AMP IV ONE (11:01)
[2024-10-28] MEDS: METOPROLOL 5 MG/5 ML VIAL IV ONE (14:18)
[2024-10-28] MEDS: METOPROLOL TART 25 MG TABLET PO SCH (21:37)
[2024-10-28] MEDS: APIXABAN 2.5 MG TAB PO SCH (21:38)
[2024-10-29] VITALS (19 sets, daily range): BP systolic 117–148; BP diastolic 56–87; TEMP 95.2–98.6; O2SAT 84–97
[2024-10-29 07:45] LABS: BASO # 0.0 10^3/uL (0.0-0.2); BASO % 0.1 % (0.0-1.0); EOS # 0.0 10^3/uL (0.0-0.5); EOS % 0.0 % (0.0-3.0); LYMPH # 0.6 10^3/uL (1.5-5.0); LYMPH % 4.2 % (24.0-44.0); MONO # 0.7 10^3/uL (0.0-0.8); MONO % 4.3 % (2.0-8.0); NEUTROPHILS # 12.5 10^3/uL (1.5-8.5); NEUTROPHILS % 81.3 % (36.0-66.0); PLATELET COUNT, AUTOMATED 341 10^3/uL (150-450)
[2024-10-29] MEDS: SODIUM CHLORIDE HYPERTONIC 3% 4ML NEB SOL INH SCH (08:00)
[2024-10-29 09:03] LABS: CALCIUM LEVEL 9.3 MG/DL (8.3-10.6); CARBON DIOXIDE LEVEL 32.0 MMOL/L (20-31); CHLORIDE LEVEL 100.0 MMOL/L (98-107); CREATININE FOR GFR 2.2 MG/DL (0.55-1.30); GLOMERULAR FILTRATION RATE 22.3 (>39); POTASSIUM SERUM 5.0 MMOL/L (3.5-5.1); SODIUM LEVEL 142.0 MMOL/L (136-145)
[2024-10-29 11:18] LABS: ABG BASE EXCESS 5.3 (-2.0-2.0); ABG HCO3 33.7 MMOL/L (22.0-26.0); ABG O2 SATURATION 95.0 % (95.0-99.0); ABG PARTIAL PRESSURE O2 81.0 mmHg (75.0-100.0); ABG STANDARD HCO3 29.2 MMOL/L. (22.0-26.0); ABG TOTAL CO2 35.8 MMOL/L (23.0-31.0); ABG pH (ARTERIAL) 7.308 UNITS (7.350-7.450)
[2024-10-29 11:21] LABS: ABG PARTIAL PRESSURE CO2 68.7 mmHg (35.0-45.0)
[2024-10-29] MEDS: AZITHROMYCIN 250 MG TABLET PO SCH (15:00)
[2024-10-29 20:33] LABS: ABG BASE EXCESS 4.5 (-2.0-2.0); ABG HCO3 34.5 MMOL/L (22.0-26.0); ABG O2 SATURATION 99.5 % (95.0-99.0); ABG PARTIAL PRESSURE O2 232.6 mmHg (75.0-100.0); ABG STANDARD HCO3 28.5 MMOL/L. (22.0-26.0); ABG TOTAL CO2 37.1 MMOL/L (23.0-31.0)
[2024-10-29 20:35] LABS: ABG pH (ARTERIAL) 7.234 UNITS (7.350-7.450)
[2024-10-29 20:36] LABS: ABG PARTIAL PRESSURE CO2 83.6 mmHg (35.0-45.0)
[2024-10-29] MEDS: AZITHROMYCIN INJ 500 MG, VIAL MATE ADAPTER 1 EACH in NS 250 ML IV SCH (21:13)
[2024-10-30] VITALS (21 sets, daily range): BP systolic 101–140; BP diastolic 57–97; TEMP 97.2–98.3; O2SAT 92–98
[2024-10-30 00:16] LABS: ABG BASE EXCESS 5.8 (-2.0-2.0); ABG HCO3 32.5 MMOL/L (22.0-26.0); ABG O2 SATURATION 98.2 % (95.0-99.0); ABG PARTIAL PRESSURE CO2 57.5 mmHg (35.0-45.0); ABG PARTIAL PRESSURE O2 108.5 mmHg (75.0-100.0); ABG STANDARD HCO3 29.7 MMOL/L. (22.0-26.0); ABG TOTAL CO2 34.3 MMOL/L (23.0-31.0); ABG pH (ARTERIAL) 7.370 UNITS (7.350-7.450)
[2024-10-30 05:18] LABS: BASO # 0.0 10^3/uL (0.0-0.2); BASO % 0.1 % (0.0-1.0); EOS # 0.0 10^3/uL (0.0-0.5); EOS % 0.0 % (0.0-3.0); LYMPH # 0.5 10^3/uL (1.5-5.0); LYMPH % 3.4 % (24.0-44.0); MONO # 0.7 10^3/uL (0.0-0.8); MONO % 4.5 % (2.0-8.0); NEUTROPHILS # 12.7 10^3/uL (1.5-8.5); NEUTROPHILS % 81.5 % (36.0-66.0); PLATELET COUNT, AUTOMATED 326 10^3/uL (150-450)
[2024-10-30 05:26] LABS: CALCIUM LEVEL 9.3 MG/DL (8.3-10.6); CARBON DIOXIDE LEVEL 37.0 MMOL/L (20-31); CHLORIDE LEVEL 103.0 MMOL/L (98-107); CREATININE FOR GFR 1.93 MG/DL (0.55-1.30); GLOMERULAR FILTRATION RATE 26.0 (>39); POTASSIUM SERUM 5.3 MMOL/L (3.5-5.1); SODIUM LEVEL 147.0 MMOL/L (136-145)
[2024-10-30] MEDS ORDERED: cefTRIAXone SOD 1 GM in DEXTROSE 5% (D5W) ADV/MINI-BAG 50 ML IV SCH (09:00)
[2024-10-30] MEDS ORDERED: E-Z-HD 98% w/w 340 GM SUSP BTL As Ordered ONE (09:49)
[2024-10-30] MEDS ORDERED: E-Z-PAQUE 96% w/w SUSP 176 GM BTL As Ordered ONE (09:49)
[2024-10-30] MEDS: FUROSEMIDE injection 100 MG, VIAL 2 BAG 13MM ADAPTER 1 EACH in NS 100 ML IV SCH (10:45)
[2024-10-30] MEDS: cefTRIAXone SOD 1 GM in DEXTROSE 5% (D5W) ADV/MINI-BAG 50 ML IV SCH (10:46)
[2024-10-30] MEDS ORDERED: NYSTATIN 100,000 UNITS/GM TOPICAL PWD 15 GM TOP PRN (13:40)
[2024-10-30] MEDS ORDERED: HYOSCYAMINE SULFATE 0.125 MG SUBL TABLET SL PRN (15:30)
[2024-10-30] MEDS ORDERED: SALIVA SUBSTITUTE BTL MT PRN (15:30)
[2024-10-30] MEDS ORDERED: POLYVINYL ALCOHOL OPHTH SOLN 15ML (LIQUITEARS) OU PRN (15:30)
[2024-10-30] MEDS ORDERED: ATROPINE SULFATE 1% OPHTH SOLN 2 ML BTL SL PRN (15:30)
[2024-10-30] MEDS ORDERED: MORPHINE 10 MG/0.5 ML ORAL CONCENTRATE SOLUTION U/D SL PRN (15:30)
[2024-10-30] MEDS ORDERED: LORazepam 1 MG TAB PO SCH (15:30)
[2024-10-30] MEDS: LORazepam 1 MG TAB PO PRN (15:54)
[2024-10-30] MEDS: MORPHINE 10 MG/0.5 ML ORAL CONCENTRATE SOLUTION U/D SL SCH (16:36)
[2024-10-30] MEDS ORDERED: IPRATROPIUM 0.5 MG/ALBUTEROL 2.5 MG INH SOL UD 3 ML NEB SCH ×2 (20:00)
[2024-10-30 20:15] LABS: FUNGITELL, SERUM < 31 pg/mL (<60)
[2024-10-30] MEDS ORDERED: OLANZapine ORAL DISINTEGRATING TAB 5MG PO SCH (21:00)
[2024-10-30] MEDS: LORazepam 1 MG TAB PO SCH (21:41)
[2024-10-30] MEDS ORDERED: ONDANSETRON 4MG ORAL DISINTEGRATING TAB PO SCH (22:00)
[2024-10-31] MEDS ORDERED: PANTOPRAZOLE 40MG TAB PO SCH (09:00)
[2024-10-31] MEDS ORDERED: FUROSEMIDE 40 MG TAB PO SCH (09:00)
[2024-10-31] MEDS ORDERED: predniSONE 20 MG TAB PO SCH (09:00)
[2024-10-31] MEDS ORDERED: ACETAMINOPHEN 325 MG TAB PO PRN (10:40)
[2024-10-31] MEDS ORDERED: POLYVINYL ALCOHOL OPHTH SOLN 15ML (LIQUITEARS) OU PRN (10:40)
[2024-10-31] MEDS ORDERED: HYOSCYAMINE SULFATE 0.125 MG SUBL TABLET SL PRN (10:40)
[2024-10-31] MEDS ORDERED: ACETAMINOPHEN 650 MG SUPP PR PRN (10:40)
[2024-10-31] MEDS ORDERED: ATROPINE SULFATE 1% OPHTH SOLN 2 ML BTL SL PRN (10:40)
[2024-10-31] MEDS ORDERED: SALIVA SUBSTITUTE BTL MT PRN (10:40)
[2024-10-31] MEDS: predniSONE 20 MG TAB PO SCH (11:14)
[2024-10-31] MEDS: PANTOPRAZOLE 40MG TAB PO SCH (11:18)
[2024-10-31] MEDS: ONDANSETRON 4MG ORAL DISINTEGRATING TAB PO SCH (12:13)
== END 2024-10-31 22:42 | disposition expired | DRG 871 ==
LOC: M ED 09:33 → M ED INP 13:29 → M PCU 14:50 → M ICU 10-29 21:38 → M MS4PR 10-31 15:27 → M MSPAV 10-31 15:32
PROVIDERS: ADMIT Internal Medicine; ATTEND Internal Medicine
PROC: B246ZZZ Ultrasonography of Right and Left Heart (ICD-10-PCS; principal; 2024-10-26)
DX: A41.9 Sepsis, unspecified organism (principal); J18.9 Pneumonia, unspecified organism; J96.21 Acute and chronic respiratory failure with hypoxia; J96.22 Acute and chronic respiratory failure with hypercapnia; E43 Unspecified severe protein-calorie malnutrition; E87.29 Other acidosis; N17.9 Acute kidney failure, unspecified; N39.0 Urinary tract infection, site not specified; J81.1 Chronic pulmonary edema; I24.89 Other forms of acute ischemic heart disease; I13.0 Hypertensive heart and chronic kidney disease with heart failure and stage 1 through stage 4 chronic kidney disease, or unspecified chronic kidney disease; I25.10 Atherosclerotic heart disease of native coronary artery without angina pectoris; I27.23 Pulmonary hypertension due to lung diseases and hypoxia; Z66 Do not resuscitate; I50.810 Right heart failure, unspecified; G47.33 Obstructive sleep apnea (adult) (pediatric); N18.30 Chronic kidney disease, stage 3 unspecified; K44.9 Diaphragmatic hernia without obstruction or gangrene; E11.22 Type 2 diabetes mellitus with diabetic chronic kidney disease; N28.1 Cyst of kidney, acquired; M19.90 Unspecified osteoarthritis, unspecified site; I45.10 Unspecified right bundle-branch block; I48.0 Paroxysmal atrial fibrillation; K21.9 Gastro-esophageal reflux disease without esophagitis; Z79.52 Long term (current) use of systemic steroids; Z79.899 Other long term (current) drug therapy; Z88.6 Allergy status to analgesic agent; Z99.81 Dependence on supplemental oxygen